=== PATIENT | female | born 1970 ===

== ENCOUNTER 2016-11-23 09:52 | Emergency (ER) | payer BC ==
[2016-11-23 10:00] VITALS: TEMP 98; BMI 22.4
[2016-11-23] MEDS ORDERED: Sodium Chloride 0.9% 1,000 ML IV STA (10:26)
[2016-11-23 11:05] LABS: BASO # 0.02 K/mm3 (0.0-2.0); BASO % 0.3 % (0.0-3.0); EOS % 0.1 % (1.5-5.0); GRAN # 5.45 (1.4-6.5); GRAN % 71.8 % (50.0-68.0); HEMOGLOBIN 13.9 gm/dL (12.0-16.0); LYMPH # 1.5 (1.2-3.4); LYMPH % 19.8 % (22.0-35.0); MEAN CELL VOLUME 111.8 fL (80.0-105.0); MEAN CORPUSCULAR HEMOGLOBIN 38.3 pg (25.0-35.0); MEAN CORPUSCULAR HGB CONC 34.2 g/dl (31.0-37.0); MEAN PLATELET VOLUME 10.7 fl (7.0-11.0); MONO # 0.6 (0.1-0.6); PLATELET COUNT 165 10^3/uL (120.0-450.0); RBC 3.63 10^6/uL (3.5-6.1); RED CELL DISTRIBUTION WIDTH 14.8 % (11.5-14.5); WHITE BLOOD COUNT 7.6 10^3/ul (4.5-11.0)
[2016-11-23 11:16] LABS: INR 1.15 (0.93-1.08); PARTIAL THROMBOPLASTIN TIME 27.3 Seconds (23.7-30.8); PROTHROMBIN TIME 12.4 Seconds (9.9-11.8)
[2016-11-23 11:18] LABS: ALB/GLOB RATIO 0.9 (1.1-1.8); ALT/SGPT 97 U/L (7-56); AST/SGOT 203 U/L (15-39); BLOOD UREA NITROGEN 7 mg/dL (7-21); CALCIUM 9.3 mg/dL (8.4-10.5); GFR AFRICAN-AMERICAN > 60; GFR NON-AFRICAN AMERICAN > 60
[2016-11-23 11:30] LABS: TROPONIN I < 0.01 ng/mL
[2016-11-23 11:54] LABS: PH,URINE 5.5 (4.7-8.0); URINE BILIRUBIN MODERATE (NEGATIVE); URINE BLOOD NEGATIVE (NEGATIVE); URINE GLUCOSE (UA) NEGATIVE (NEGATIVE); URINE LEUKOCYTE ESTERASE NEGATIVE Leu/uL (NEGATIVE); URINE NITRATE NEGATIVE (NEGATIVE); URINE PROTEIN 30 mg/dL (<30 mg/dL)
[2016-11-23 11:55] VITALS: RESP 18; O2SAT 100
[2016-11-23 11:55] LABS: URINE APPEARANCE CLOUDY (CLEAR); URINE COLOR DARK YELLOW (YELLOW)
--- NOTE | 2016-11-23 12:10 | ED PDOC ---
Arrival/HPI - General Historian: Patient - General Chief Complaint: Dizziness/Lightheaded Time Seen by Provider: 11/23/16 10:13 - History of Present Illness Narrative History of Present Illness (Text): 11/23/16 12:56 46yo female present with complaint of positional dizziness x 2days. She describes dizziness as a spinning sensation. States is worse when laying down. Denies tinnitus, recent URI, focal weakness, aphasia, headache, nausea, abdominal pain, fever, chills, any other complaint. (Louisa Dorman) Past Medical History - Provider Review Nursing Documentation Reviewed: Yes - Psychiatric Hx Substance Use: No - Surgical History Hx Orthopedic Surgery: Yes Family/Social History - Physician Review Nursing Documentation Reviewed: Yes Family/Social History: Unknown Family HX Smoking Status: Current Some Days Smoker Hx Alcohol Use: Yes Frequency of alcohol use: Socially Hx Substance Use: No Allergies/Home Meds Allergies/Adverse Reactions: Allergies No Known Allergies Allergy (Verified 11/23/16 10:00) Review of Systems - Physician Review All systems were reviewed & negative as marked: Yes - Review of Systems Constitutional: Normal Eyes: Normal ENT: Normal Respiratory: Normal Cardiovascular: Normal Gastrointestinal: Normal Genitourinary Female: Normal Musculoskeletal: Normal Skin: Normal Neurological: Dizziness. absent: Headache, Focal Weakness, Gait Changes, Speech Changes, Facial Droop Endocrine: Normal Hemo/Lymphatic: Normal Psychiatric: Normal Physical Exam Vital Signs Reviewed: Yes Temperature: Afebrile Blood Pressure: Normal Pulse: Regular Respiratory Rate: Normal Appearance: Positive for: Well-Appearing, Non-Toxic, Comfortable Pain Distress: None Mental Status: Positive for: Alert and Oriented X 3 Finger Stick Blood Glucose: 89 - Systems Exam Head: Present: Atraumatic, Normocephalic Pupils: Present: PERRL Extroacular Muscles: Present: EOMI Conjunctiva: Present: Normal Mouth: Present: Moist Mucous Membranes Neck: Present: Normal Range of Motion Respiratory/Chest: Present: Clear to Auscultation, Good Air Exchange. No: Respiratory Distress, Accessory Muscle Use Cardiovascular: Present: Regular Rate and Rhythm, Normal S1, S2. No: Murmurs Abdomen: Present: Normal Bowel Sounds. No: Tenderness, Distention, Peritoneal Signs Back: Present: Normal Inspection Upper Extremity: Present: Normal Inspection. No: Cyanosis, Edema Lower Extremity: Present: Normal Inspection. No: Edema Neurological: Present: GCS=15, CN II-XII Intact, Speech Normal, Motor Func Grossly Intact, Normal Sensory Function, Normal Cerebellar Funct, Norm Deep Tendon Reflexes, Gait Normal, Memory Normal, Normal 2Pt Descrimination, Other ( No focal neurological deficit) Skin: Present: Warm, Dry, Normal Color. No: Rashes Psychiatric: Present: Alert, Oriented x 3, Normal Insight, Normal Concentration Vital Signs Temp Pulse Resp BP Pulse Ox 11/23/16 12:39 79 18 132/79 100 11/23/16 11:54 85 18 134/82 100 11/23/16 11:30 98 H 18 135/89 99 11/23/16 09:58 98.0 F 107 H 16 137/98 H 99 Medical Decision Making ED Course and Treatment: I was available for consultation during PA evaluation. The chart was reviewed by me, and I agree with disposition. The documented history was done by the physician receiving manager. The documented physical exam was done by the physician receiving manager. The documented procedures were done by the physician receiving manager. (Derick Trujillo) 11/23/16 13:06 PT presented for stated history. On reevaluation she notes that her dizziness resolved. She have no focal neurological deficit and ambulatory with normal gait. Lab was unremarkable with the exception of the elevated LFT's. On further questioning pt admits to history of alcohol abuse. She was counselled on joining AA and stopping alcohol. Advised to f/u with her PMD for outp work up. Head CT was negative . Result was DW the pt. She was DC home with a rx of Meclizine 25mg. Referred to a Neurologist. Advised TRT ED for any new or worsening symptoms. She expressed understanding of all the given instructions. ( Louisa Dorman) - Lab Interpretations Lab Results: 11/23/16 10:58 11/23/16 10:58 Lab Results 11/23/16 11:40: Urine Opiates Screen Negative, Urine Methadone Screen Negative, Ur Barbiturates Screen Negative, Ur Phencyclidine Scrn Negative, Ur Amphetamines Screen Negative, U Benzodiazepines Scrn Negative, U Oth Cocaine Metabols Negative, U Cannabinoids Screen Negative 11/23/16 11:40: Urine Color Dark yellow, Urine Appearance Cloudy, Urine pH 5.5, Ur Specific [place] >= 1.030, Urine Protein 30 H, Urine Glucose (UA) Negative, Urine Ketones 15 H, Urine Blood Negative, Urine Nitrate Negative, Urine Bilirubin Moderate H, Urine Urobilinogen 2.0 H, Ur Leukocyte Esterase Negative, Urine RBC 0 - 2, Urine WBC Negative, Ur Epithelial Cells Many, Amorphous Sediment Small, Urine Bacteria Mod 11/23/16 10:58: Alcohol, Quantitative 23 H 11/23/16 10:58: Sodium 141, Potassium 4.2, Chloride 104, Carbon Dioxide 23, Anion Gap 18, BUN 7, Creatinine 0.6, Est GFR ( Amer) > 60, Est GFR (Non- Af Amer) > 60, Random Glucose 90, Calcium 9.3, Total Bilirubin 1.8 H, AST 203 H , ALT 97 H, Alkaline Phosphatase 217 H, Lactate Dehydrogenase 621, Total Creatine Kinase 50, Troponin I < 0.01, Total Protein 8.6 H, Albumin 4.0, Globulin 4.6, Albumin/Globulin Ratio 0.9 L 11/23/16 10:58: PT 12.4 H, INR 1.15 H, APTT 27.3 11/23/16 10:58: WBC 7.6, RBC 3.63, Hgb 13.9, Hct 40.6, MCV 111.8 H, MCH 38.3 H, MCHC 34.2, RDW 14.8 H, Plt Count 165, MPV 10.7, Gran % 71.8 H, Lymph % (Auto) 19.8 L, [place] % (Auto) 8.0 H, Eos % (Auto) 0.1 L, Baso % (Auto) 0.3, Gran # 5.45 , Lymph # 1.5, [place] # 0.6, Eos # 0.0, Baso # 0.02 - RAD Interpretation Radiology Orders: 11/23/16 10:26 HEAD W/O CONTRAST [CT] Stat - Medication Orders Current Medication Orders: Discontinued Medications Sodium Chloride (Sodium Chloride 0.9%) 1,000 mls @ 999 mls/hr IV .Q1H1M STA Stop: 11/23/16 11:26 Last Admin: 11/23/16 10:46 Dose: 999 mls/hr Meclizine HCl (Antivert) 25 mg PO STAT STA Stop: 11/23/16 10:28 Last Admin: 11/23/16 10:44 Dose: 25 mg Disposition/Present on Arrival - Present on Arrival Any Indicators Present on Arrival: No History of DVT/PE: No History of Uncontrolled Diabetes: No Urinary Catheter: No History of Decub. Ulcer: No History Surgical Site Infection Following: None - Disposition Have Diagnosis and Disposition been Completed?: Yes Disposition Time: 12:45 Patient Plan: Discharge - Disposition Diagnosis: Dizziness, Elevated liver enzymes Disposition: HOME/ ROUTINE Condition: STABLE Discharge Instructions (ExitCare): Vertigo (ED) Additional Instructions: Follow up with your Doctor/Neurologist Return to ED for any new or worsening symptoms Prescriptions: Meclizine [Meclizine*] 25 mg PO Q6 #15 tab Referrals: PCP,NO [Primary Care Provider] - Follow up with primary Scott Pink MD [Staff Provider] - Follow up with primary
[2016-11-23 12:13] LABS: BARBITURATES, UR NEGATIVE (NEGATIVE); BENZODIAZEPINES, UR NEGATIVE (NEGATIVE); OPIATES, UR NEGATIVE (NEGATIVE); PHENCYCLIDINE, UR NEGATIVE (NEGATIVE)
[2016-11-23 12:17] LABS: URINE EPITHELIAL CELLS MANY /hpf (0-5); URINE RBC 0 - 2 /hpf (0-2); URINE WBC NEGATIVE /hpf (0-6)
[2016-11-23 12:18] LABS: URINE AMORPHOUS SEDIMENT SMALL; URINE BACTERIA MOD (NEG)
--- NOTE | 2016-11-23 12:28 | CT ---
PROCEDURE: CT HEAD WITHOUT CONTRAST. HISTORY: dizziness COMPARISON: None available. TECHNIQUE: Axial computed tomography images were obtained through the head/brain without intravenous contrast. Radiation dose: Total exam DLP = 774 mGy-cm. This CT exam was performed using one or more of the following dose reduction techniques: Automated exposure control, adjustment of the mA and/or kV according to patient size, and/or use of iterative reconstruction technique. FINDINGS: HEMORRHAGE: No intracranial hemorrhage. BRAIN: No mass effect or edema. No atrophy or chronic microvascular ischemic changes. VENTRICLES: Unremarkable. No hydrocephalus. CALVARIUM: Unremarkable. PARANASAL SINUSES: Unremarkable as visualized. No significant inflammatory changes. MASTOID AIR CELLS: Unremarkable as visualized. No inflammatory changes. OTHER FINDINGS: None. IMPRESSION: Normal CT of the Head.
[2016-11-23 12:39] VITALS: BP 132/79; PULSE 79
== END 2016-11-23 13:00 | disposition home or self-care (01) ==
LOC: ED 09:52
DX: R74.8 Abnormal levels of other serum enzymes (principal); R42 Dizziness and giddiness
CPT/HCPCS: 70450; 80053; 81001; 82550; 83615; 84484; 85025; 85610; 85730; 96360; 99285; G0480; J7040

== ENCOUNTER 2017-02-05 08:57 | Inpatient (IN) | payer BC ==
[2017-02-05 08:57] VITALS: BMI 22.4
[2017-02-05] MEDS ORDERED: Iohexol 350 MG/100 ML VIAL ONE (09:43)
[2017-02-05 09:46] LABS: BASO # 0.03 K/mm3 (0.0-2.0); BASO % 0.3 % (0.0-3.0); EOS # 0.2 (0.0-0.7); EOS % 1.5 % (1.5-5.0); GRAN # 5.16 (1.4-6.5); GRAN % 52.7 % (50.0-68.0); HEMATOCRIT 38.3 % (36.0-48.0); LYMPH # 3.9 (1.2-3.4); LYMPH % 39.8 % (22.0-35.0); MEAN CORPUSCULAR HEMOGLOBIN 40.2 pg (25.0-35.0); MEAN CORPUSCULAR HGB CONC 35.2 g/dl (31.0-37.0); MEAN PLATELET VOLUME 10.4 fl (7.0-11.0); MONO # 0.6 (0.1-0.6); MONO % 5.7 % (1.0-6.0); RED CELL DISTRIBUTION WIDTH 15.5 % (11.5-14.5); WHITE BLOOD COUNT 9.8 10^3/ul (4.5-11.0)
--- NOTE | 2017-02-05 09:54 | RAD ---
HISTORY: and pain COMPARISON: No prior. FINDINGS: LUNGS: No active pulmonary disease. PLEURA: No significant pleural effusion identified, no pneumothorax apparent. CARDIOVASCULAR: Normal. OSSEOUS STRUCTURES: No significant abnormalities. VISUALIZED UPPER ABDOMEN: Normal. OTHER FINDINGS: None. IMPRESSION: No active disease.
[2017-02-05 09:55] LABS: ALB/GLOB RATIO 0.7 (1.1-1.8); ALKALINE PHOSPHATASE 259 U/L (38-126); ALT/SGPT 96 U/L (7-56); AST/SGOT 264 U/L (14-36); BLOOD UREA NITROGEN 4 mg/dL (7-21); CALCIUM 8.6 mg/dL (8.4-10.5); CARBON DIOXIDE 23 mmol/L (21-33); CHLORIDE 107 mmol/L (95-110); GFR AFRICAN-AMERICAN > 60; GLUCOSE,RANDOM 105 mg/dL (70-110); LIPASE 231 U/L (23-300); POTASSIUM 3.3 mmol/L (3.6-5.0); SODIUM 144 mmol/L (132-148); TOTAL PROTEIN 8.1 g/dL (5.8-8.3)
[2017-02-05 09:56] LABS: INR 1.14 (0.93-1.08)
--- NOTE | 2017-02-05 10:10 | ED PDOC ---
Arrival/HPI - General Chief Complaint: Abnormal Labs Time Seen by Provider: 02/05/17 09:35 Historian: Patient - History of Present Illness Narrative History of Present Illness (Text): 02/05/17 10:10 A 46 year old female presents to the emergency department for abnormal labs. Patient says PMD advised patient to come to the emergency department because liver enzymes were elevated. Patient is complaining of right upper quadrant and epigastric discomfort for the past 4-5 months, which is usually worse after she eats. Patient was told to get her gallbladder taken out. Patient denies any other complaints at this time. PMD: Dr. Patel Symptom Onset: Sudden Symptom Course: Unchanged Activities at Onset: Rest Context: Home Past Medical History - Provider Review Nursing Documentation Reviewed: Yes - Cardiac Hx Cardiac Disorders: No - Pulmonary Hx Respiratory Disorders: No - Neurological Hx Neurological Disorder: No - HEENT Hx HEENT Disorder: No - Renal Hx Renal Disorder: No - Endocrine/Metabolic Hx Endocrine Disorders: No - Hematological/Oncological Hx Blood Disorders: No - Integumentary Hx Dermatological Disorder: No - Musculoskeletal/Rheumatological Hx Musculoskeletal Disorders: No - Gastrointestinal Hx Gastrointestinal Disorders: No - Genitourinary/Gynecological Hx Genitourinary Disorders: No - Psychiatric Hx Psychophysiologic Disorder: No Hx Substance Use: No - Surgical History Hx Orthopedic Surgery: Yes Family/Social History - Physician Review Nursing Documentation Reviewed: Yes Family/Social History: No Known Family HX Smoking Status: Light Smoker < 10 Cigarettes Daily Hx Alcohol Use: Yes Frequency of alcohol use: Few days per week Hx Substance Use: No Allergies/Home Meds Allergies/Adverse Reactions: Allergies No Known Allergies Allergy (Verified 02/05/17 09:07) Home Medications: Home Meds Medication Instructions Recorded Confirmed No Known Home Med 02/05/17 02/05/17 Review of Systems - Physician Review All systems were reviewed & negative as marked: Yes Physical Exam - Physical Exam Narrative Physical Exam (Text): 02/05/17 10:07 - Review of Systems Constitutional: Normal. absent: Fatigue, Weight Change, Fevers Eyes: Normal ENT: denies sore throat, denies tristhmus Respiratory: Normal. absent: SOB, Cough, Sputum Cardiovascular: absent: Chest Pain, Palpitations, Syncope Gastrointestinal: right upper quadrant and epigastric discomfort absent: Diarrhea, Nausea, Vomiting Genitourinary: Normal. absent: Dysuria, Frequency, Hematuria, vaginal bleeding Musculoskeletal: Normal. absent: Arthralgias, Back Pain, Neck Pain Skin: no rashes, no erythema Neurological: absent: Focal Weakness Endocrine: Normal Hemo/Lymphatic: Normal Psychiatric: No suicidal or homicidal ideations Physical exam Patient appears age appropriate in no distress, speaking full sentences without difficulty - Systems Exam Head: Present: Atraumatic, Normocephalic Pupils: Present: PERRL Extroacular Muscles: Present: EOMI Conjunctiva: Present: Normal Mouth: Present: Moist Mucous Membranes Neck: Present: Normal Range of Motion. No: MIDLINE TENDERNESS, Paraspinal Tenderness Respiratory/Chest: Present: Clear to Auscultation, Good Air Exchange. No: Respiratory Distress, Accessory Muscle Use, Tachypneic Cardiovascular: Present: Regular Rate and Rhythm, Normal S1, S2, Peripheal Pulses Present. No: Murmurs Abdomen: Present: RUQ ttp, Normal Bowel Sounds. No: Distention, Peritoneal Signs, Rebound, Guarding Back: Present: Normal Inspection. No: Midline Tenderness, Paraspinal Tenderness Upper Extremity: Present: Normal Inspection. No: Cyanosis, Edema Lower Extremity: Present: Normal Inspection. No: Edema Neurological: Present: GCS=15, Speech Normal, cranial nerves II through XII fully intact with no cerebellar abnormality, neurosensory fully intact. No focal neurological deficits. Skin: Present: Warm, Dry, Normal Color. No: Rashes Lymphatic: Present: OX3, NI, NC Psychiatric: Present: Alert, Oriented x 3, Normal Insight, Normal Concentration Vital Signs Reviewed: Yes Vital Signs Temp Pulse Resp BP Pulse Ox 02/05/17 12:58 71 18 104/78 99 02/05/17 11:15 74 18 102/75 99 02/05/17 09:04 98.1 F 100 H 16 116/86 100 Temperature: Afebrile Blood Pressure: Normal Pulse: Regular Respiratory Rate: Normal Appearance: Positive for: Well-Appearing, Non-Toxic, Comfortable Pain Distress: None Mental Status: Positive for: Alert and Oriented X 3 Medical Decision Making ED Course and Treatment: 02/05/17 10:05 Impression: A 46 year old female with right upper quadrant and epigastric discomfort. On physical exam, patient had right upper quadrant tenderness to palpation. Differential Diagnosis included but are not limited to: cholelithiasis vs. cholecystitis vs. nonspecific abdominal pain Plan: -- EKG -- chest xray -- CT abd/pelvis -- labs -- Reassess and disposition Prior Visits: Notes and results from previous visits were reviewed. Patient was last seen in the emergency department on 11/23/16 for evaluation of dizziness. Progress Notes: Patient was scheduled for CAT scan today with PO contrast, which she already drank prior to arrival. EKG: EKG shows NSR at [address]-segment elevations, normal intervals. Interpreted by me. 02/05/17 09:56 chest xray: Creator : Valeri Garcia V. FINDINGS: LUNGS: No active pulmonary disease. PLEURA: No significant pleural effusion identified, no pneumothorax apparent. CARDIOVASCULAR: Normal. OSSEOUS STRUCTURES: No significant abnormalities. VISUALIZED UPPER ABDOMEN: Normal. IMPRESSION: No active disease. 02/05/17 11:37 CT IMPRESSION: 1. The gallbladder is prominently distended without mural thickening, pericholecystic fluid or radiodense cholelithiasis. Clinically correlate for potential cholecystitis nevertheless. 2. Marked diffuse fatty infiltration of the liver is identified with probable focal fatty sparing at a segment of the medial left lobe approaching the watershed zone near the medial right lobe as well. Follow-up MRI with and without contrast can confirm this finding and exclude underlying lesions here. 3. 1 cm right adnexal cyst and probable small fibroid at the lower uterine segment uterus towards left. BCx and abx ordered vice president integrated paged 02/05/17 13:10 seen by vice president integrated US result pending 02/05/17 13:16 Abdomen US Creator : Valeri Garcia V. LIVER: Measures 17.3 x 17.2 cm. -. Minimal hepatomegaly. Diffuse increased echogenicity of the liver parenchyma. No mass. No intrahepatic bile duct dilatation. GALLBLADDER: Multiple gallstones. No gallbladder wall thickening or pericholecystic fluid. No positive sonographic Smith sign elicited. COMMON BILE DUCT: Measures 4 mm. No stones. No dilatation. PANCREAS: Limited evaluation-obscured by bowel gas RIGHT KIDNEY: Measures 9.9 x 4.7 x 5.7cm. Normal echogenicity. No calculus, mass , or hydronephrosis. LEFT KIDNEY: Measures 11.0 x 6.5 x 5.9cm. Normal echogenicity. No calculus, mass , or hydronephrosis. SPLEEN: Normal in size and contour. No mass. AORTA: No aneurysmal dilatation. IVC: Unremarkable. OTHER FINDINGS: Prominent bowel gas IMPRESSION: Multiple gallstones without gallbladder wall thickening or pericholecystic fluid. No positive ultrasound Smith sign. No imaging ancillary signs to suggest acute cholecystitis. No dilated ducts Minimal hepatomegaly. Hepatic steatosis 02/05/17 13:[address] Chi in detail, who agrees and accepts patient to her service with Dr. Arora and Dr. Solis on consult. pt aware of and agrees with plan - Lab Interpretations Lab Results: 02/05/17 09:28 02/05/17 09:28 Lab Results 02/05/17 12:02: Blood Type Confirm B POSITIVE 02/05/17 09:28: Sodium 144, Potassium 3.3 L, Chloride 107, Carbon Dioxide 23, Anion Gap 17, BUN 4 L, Creatinine 0.5, Est GFR ( Amer) > 60, Est GFR (Non -Af Amer) > 60, Random Glucose 105, Calcium 8.6, Total Bilirubin 1.0, AST 264 H , ALT 96 H, Alkaline Phosphatase 259 H, Total Protein 8.1, Albumin 3.4, Globulin 4.7, Albumin/Globulin Ratio 0.7 L, Lipase 231 02/05/17 09:28: PT 12.3 H, INR 1.14 H, APTT 28.0 02/05/17 09:28: WBC 9.8 D, RBC 3.36 L, Hgb 13.5, Hct 38.3, MCV 114.0 H, MCH 40.2 H, MCHC 35.2, RDW 15.5 H, Plt Count 225, MPV 10.4, Gran % 52.7, Lymph % ( Auto) 39.8 H, [place] % (Auto) 5.7, Eos % (Auto) 1.5, Baso % (Auto) 0.3, Gran # 5.16, Lymph # 3.9 H, [place] # 0.6, Eos # 0.2, Baso # 0.03 02/05/17 09:20: Blood Type B POSITIVE, Antibody Screen Negative, BBK History Checked No verified bt I have reviewed the lab results: Yes - RAD Interpretation Radiology Orders: 02/05/17 09:36 ABD & PELVIS IV CONTRAST ONLY [CT] Stat 02/05/17 09:37 CHEST PORTABLE [RAD] Stat 02/05/17 11:49 ABDOMEN COMPLETE [US] Stat - EKG Interpretation Interpreted by ED Physician: Yes Type: 12 lead EKG - Medication Orders Current Medication Orders: Potassium Chloride 40 meq/ (Sodium Chloride) 1,020 mls @ 100 mls/hr IV .[id number] SASHA Piperacillin Sod/Tazobactam Sod (Zosyn 3.375 In Ns 100ml) 100 mls @ 200 mls/hr IVPB Q6 SASHA PRN Reason: Protocol Stop: 02/06/17 00:29 Sodium Chloride (Sodium Chloride 0.9%) 1,000 mls @ 100 mls/hr IV .Q10H SASHA Last Admin: 02/05/17 13:53 Dose: 100 mls/hr eMAR Start Stop Document 02/05/17 13:53 SE (Rec: 02/05/17 13:53 SE [id number]) Intravenous Solution Start Date 02/05/17 Start Time 13:53 Morphine Sulfate (Morphine) 4 mg IVP Q4 PRN PRN Reason: Pain, moderate (4-7) Ondansetron HCl (Zofran Inj) 4 mg IVP Q4 PRN PRN Reason: Nausea/Vomiting Discontinued Medications Magnesium Sulfate/Dextrose (Magnesium Sulfate 1 Gm/100 Ml D5w) 1 gm in 100 mls @ 100 mls/hr IVPB ONCE ONE Stop: 02/05/17 11:37 Last Admin: 02/05/17 11:15 Dose: 100 mls/hr eMAR Start Stop Document 02/05/17 11:15 SE (Rec: 02/05/17 11:15 SE [id number]) Intravenous Solution Start Date 02/05/17 Start Time 11:15 Metronidazole (Flagyl) 500 mg in 100 mls @ 100 mls/hr IVPB STAT STA PRN Reason: Protocol Stop: 02/05/17 12:37 Last Admin: 02/05/17 13:15 Dose: 100 mls/hr Comments: SCANNER NOT WORKING. VERIFIED WITH VITOR< PATIENT REPRESENTATIVE eMAR Start Stop Document 02/05/17 13:15 SE (Rec: 02/05/17 13:16 SE [id number]) Intravenous Solution Start Date 02/05/17 Start Time 13:16 Ceftriaxone Sodium (Rocephin 1 Gram Ivpb) 1 gm in 100 mls @ 200 mls/hr IV STAT STA PRN Reason: Protocol Stop: 02/05/17 12:07 Last Admin: 02/05/17 12:17 Dose: 200 mls/hr Comments: waited on mag to finish to hang eMAR Start Stop Document 02/05/17 12:17 SE (Rec: 02/05/17 12:17 SE [id number]) Intravenous Solution Start Date 02/05/17 Start Time 12:17 Iohexol (Omnipaque 350 100 Ml) Confirm Administered Dose 350 mg .ROUTE .STK-MED ONE Stop: 02/05/17 09:44 Ketorolac Tromethamine (Toradol) 30 mg IVP STAT STA Stop: 02/05/17 11:44 Last Admin: 02/05/17 11:53 Dose: 30 mg MAR Pain Assessment Document 02/05/17 11:53 SE (Rec: 02/05/17 11:54 SE [id number]) Pain Reassessment Is this a pain reassessment? No Sleep Is patient sleeping during reassessment? No Presence of Pain Presence of Pain Yes Pain Scale Used Pain Scale Used Numeric IVP Administration Document 02/05/17 11:53 SE (Rec: 02/05/17 11:54 SE [id number]) Charges for Administration # of IVP Administrations 1 Ondansetron HCl (Zofran Inj) 4 mg IVP STAT STA Stop: 02/05/17 11:44 Last Admin: 02/05/17 11:54 Dose: 4 mg IVP Administration Document 02/05/17 11:54 SE (Rec: 02/05/17 11:54 SE [id number]) Charges for Administration # of IVP Administrations 1 Potassium Chloride (K-Dur 20 Meq Er Tab) 40 meq PO STAT STA Stop: 02/05/17 10:39 Last Admin: 02/05/17 10:43 Dose: 40 meq ED OBSERVATION Date of observation admission: 02/05/17 Time of observation admission: 09:00 - Scribe Statement The provider has reviewed the documentation as recorded by the Jayy Fam Provider Scribe Attestation: All medical record entries made by the Scribe were at my direction and personally dictated by me. I have reviewed the chart and agree that the record accurately reflects my personal performance of the history, physical exam, medical decision making, and the department course for this patient. I have also personally directed, reviewed, and agree with the discharge instructions and disposition. Disposition/Present on Arrival - Present on Arrival Any Indicators Present on Arrival: No History of DVT/PE: No History of Uncontrolled Diabetes: No Urinary Catheter: No History of Decub. Ulcer: No History Surgical Site Infection Following: None - Disposition Have Diagnosis and Disposition been Completed?: Yes Diagnosis: Abdominal pain Disposition: HOSPITALIZED Disposition Time: 09:00 Patient Plan: Admission Patient Problems: Current Active Problems Problem Status Onset Abdominal pain Acute Condition: STABLE
[2017-02-05] MEDS ORDERED: Magnesium Sulfate 1 gm in D5W 1 GM/100 ML BAG IVPB ONE (10:38)
[2017-02-05] MEDS ORDERED: Potassium Chloride 20 mEq ER Tab PO STA (10:38)
--- NOTE | 2017-02-05 11:26 | CT ---
PROCEDURE: CT Abdomen and Pelvis with contrast HISTORY: abd pain COMPARISON: None. TECHNIQUE: Contrast dose: Omnipaque 350, 100 cc. Radiation dose: Total exam DLP = 334.64 mGy-cm. This CT exam was performed using one or more of the following dose reduction techniques: Automated exposure control, adjustment of the mA and/or kV according to patient size, and/or use of iterative reconstruction technique. FINDINGS: LOWER THORAX: Unremarkable. LIVER: There is prominent diffuse fatty infiltration identified throughout the liver with likely focal fatty sparing at the medial left lobe liver approaching the watershed region between the left and right lobes. This can be confirmed by MRI without contrast. GALLBLADDER AND BILE DUCTS: The gallbladder appears markedly distended but there is no mural thickening or pericholecystic fluid collection. No radiodense cholelithiasis. Clinically correlate for possible cholecystitis nevertheless. PANCREAS: Unremarkable. No gross lesion or ductal dilatation. SPLEEN: Unremarkable. ADRENALS: Unremarkable. No mass. KIDNEYS AND URETERS: Unremarkable. No hydronephrosis. No solid mass. VASCULATURE: Unremarkable. No aortic aneurysm. BOWEL: Unremarkable. No obstruction. No gross mural thickening. A small spur polyp is not excluded at the medial wall the cecum or adherent retained fecal material. Follow-up lower endoscopy is a recommended when feasible. APPENDIX: The appendix is not identified however there is no CT evidence to suggest appendicitis at this time. PERITONEUM: Unremarkable. No free fluid. No free air. LYMPH NODES: Unremarkable. No enlarged lymph nodes. BLADDER: Unremarkable. REPRODUCTIVE: 1 cm right adnexal cysts identified an inhomogeneous enhancement at the lower uterine segment of the uterus toward the left may reflect a small uterine fibroid. A tampon is also identified in the vaginal vault. BONES: No acute fracture. OTHER FINDINGS: None. IMPRESSION: 1. The gallbladder is prominently distended without mural thickening, pericholecystic fluid or radiodense cholelithiasis. Clinically correlate for potential cholecystitis nevertheless. 2. Marked diffuse fatty infiltration of the liver is identified with probable focal fatty sparing at a segment of the medial left lobe approaching the watershed zone near the medial right lobe as well. Follow-up MRI with and without contrast can confirm this finding and exclude underlying lesions here. 3. 1 cm right adnexal cyst and probable small fibroid at the lower uterine segment uterus towards left.
[2017-02-05] MEDS ORDERED: metroNIDAZOLE IV 500 mg/100 ml 500 MG/100 ML BAG IVPB STA (11:38)
[2017-02-05] MEDS ORDERED: cefTRIAXone 1 gm 1 GM/100 ML BAG IV STA (11:38)
--- NOTE | 2017-02-05 12:28 | CP.PCM.CON ---
History of Present Illness - History of Present Illness History of Present Illness: 46M RUQ 3-4 mo biliary colic. post-prandial pain. Patient is originally from [place] and moved to [place] recently, patient was supposed to get gallbladder removed by surgeon in [place], but was unable to. Patient was sent to ED by PCP for labwork results. PMH: PSH: Allergies: NKDA In ED: CT distended gallbladder wall. cholecystitis. WBC 9.8 AST/ALT 264/96 ALP 259 Past Patient History - Past Social History Smoking Status: Light Smoker < 10 Cigarettes Daily - CARDIAC Hx Cardiac Disorders: No - PULMONARY Hx Respiratory Disorders: No - NEUROLOGICAL Hx Neurological Disorder: No - HEENT Hx HEENT Problems: No - RENAL Hx Chronic Kidney Disease: No - ENDOCRINE/METABOLIC Hx Endocrine Disorders: No - HEMATOLOGICAL/ONCOLOGICAL Hx Blood Disorders: No - INTEGUMENTARY Hx Dermatological Problems: No - MUSCULOSKELETAL/RHEUMATOLOGICAL Hx Musculoskeletal Disorders: No - GASTROINTESTINAL Hx Gastrointestinal Disorders: No - GENITOURINARY/GYNECOLOGICAL Hx Genitourinary Disorders: No - PSYCHIATRIC Hx Psychophysiologic Disorder: No Hx Substance Use: No - SURGICAL HISTORY Hx Orthopedic Surgery: Yes Meds Allergies/Adverse Reactions: Allergies Allergy/AdvReac Type Severity Reaction Status Date / Time No Known Allergies Allergy Verified 02/05/17 09:07 - Medications Medications: Current Medications Metronidazole (Flagyl) 500 mg in 100 mls @ 100 mls/hr IVPB STAT STA PRN Reason: Protocol Stop: 02/05/17 12:37 Results - Vital Signs Recent Vital Signs: Last Vital Signs Temp 98.1 F 02/05/17 09:04 Pulse 74 02/05/17 11:15 Resp 18 02/05/17 11:15 BP 102/75 02/05/17 11:15 Pulse Ox 99 02/05/17 11:15 - Labs Result Diagrams: 02/05/17 09:28 02/05/17 09:28 Labs: Laboratory Results - last 24 hr 02/05/17 02/05/17 02/05/17 09:20 09:28 09:28 WBC 9.8 D RBC 3.36 L Hgb 13.5 Hct 38.3 MCV 114.0 H MCH 40.2 H MCHC 35.2 RDW 15.5 H Plt Count 225 MPV 10.4 Gran % 52.7 Lymph % (Auto) 39.8 H [place] % (Auto) 5.7 Eos % (Auto) 1.5 Baso % (Auto) 0.3 Gran # 5.16 Lymph # 3.9 H [place] # 0.6 Eos # 0.2 Baso # 0.03 PT 12.3 H INR 1.14 H APTT 28.0 Sodium Potassium Chloride Carbon Dioxide Anion Gap BUN Creatinine Est GFR ( Amer) Est GFR (Non-Af Amer) Random Glucose Calcium Total Bilirubin AST ALT Alkaline Phosphatase Total Protein Albumin Globulin Albumin/Globulin Ratio Lipase Blood Type B POSITIVE Antibody Screen Negative BBK History Checked No verified bt 02/05/17 09:28 WBC RBC Hgb Hct MCV MCH MCHC RDW Plt Count MPV Gran % Lymph % (Auto) [place] % (Auto) Eos % (Auto) Baso % (Auto) Gran # Lymph # [place] # Eos # Baso # PT INR APTT Sodium 144 Potassium 3.3 L Chloride 107 Carbon Dioxide 23 Anion Gap 17 BUN 4 L Creatinine 0.5 Est GFR ( Amer) > 60 Est GFR (Non-Af Amer) > 60 Random Glucose 105 Calcium 8.6 Total Bilirubin 1.0 AST 264 H ALT 96 H Alkaline Phosphatase 259 H Total Protein 8.1 Albumin 3.4 Globulin 4.7 Albumin/Globulin Ratio 0.7 L Lipase 231 Blood Type Antibody Screen BBK History Checked Assessment & Plan - Assessment and Plan (Free Text) Assessment: 46F biliary colic, distended gallbladder, thickened wall. Plan: f/u abdominal US f/u CBC monitor vitals Maria Fernanda Bearden DO PGY1 - Date & Time Date: 02/05/17 Time: 12:21
--- NOTE | 2017-02-05 13:11 | CP.PCM.CON ---
History of Present Illness - History of Present Illness History of Present Illness: SURGERY CONSULT FOR JOSHUA 46F presents with abdominal pain. PMD sent her to ED for elevated liver enzymes. Pt has been having abdominal pain for past 4 months and was scheduled to have cholecystectomy 4 months ago when she lived in [place]. Pt was unable to make it to scheduled appt due to personal issues and did not f/u thereafter. She describes the pain as constant and so decided to find new PMD in [place]. Pt saw Dr. Rocha on Friday where labwork was done and then was sent to ED because of results. Pt admits to loss of appetite and therefore 25lb weight loss in last 4 months. She admits to fever/chills, nausea/vomiting, RUQ and mid- epigastric pain. PMH: denies PSH: R ACL repair Social: Pt admits tobacco abuse, admits to moderate weekly drinking for years, denies illicit drug use Allergies: NKDA Past Patient History - Past Social History Smoking Status: Light Smoker < 10 Cigarettes Daily - CARDIAC Hx Cardiac Disorders: No - PULMONARY Hx Respiratory Disorders: No - NEUROLOGICAL Hx Neurological Disorder: No - HEENT Hx HEENT Problems: No - RENAL Hx Chronic Kidney Disease: No - ENDOCRINE/METABOLIC Hx Endocrine Disorders: No - HEMATOLOGICAL/ONCOLOGICAL Hx Blood Disorders: No - INTEGUMENTARY Hx Dermatological Problems: No - MUSCULOSKELETAL/RHEUMATOLOGICAL Hx Musculoskeletal Disorders: No - GASTROINTESTINAL Hx Gastrointestinal Disorders: No - GENITOURINARY/GYNECOLOGICAL Hx Genitourinary Disorders: No - PSYCHIATRIC Hx Psychophysiologic Disorder: No Hx Substance Use: No - SURGICAL HISTORY Hx Orthopedic Surgery: Yes Meds Allergies/Adverse Reactions: Allergies Allergy/AdvReac Type Severity Reaction Status Date / Time No Known Allergies Allergy Verified 02/05/17 09:07 Physical Exam - Constitutional Appears: Non-toxic, No Acute Distress - Head Exam Head Exam: ATRAUMATIC - Eye Exam Eye Exam: EOMI, PERRL - ENT Exam ENT Exam: Mucous Membranes Dry - Respiratory Exam Respiratory Exam: Clear to Auscultation Bilateral, NORMAL BREATHING PATTERN - Cardiovascular Exam Cardiovascular Exam: REGULAR RHYTHM, +S1, +S2 - GI/Abdominal Exam GI & Abdominal Exam: Soft, Tenderness. absent: Distended, Firm, Guarding, Rebound, Rigid Additional comments: palpable gallbladder up to supraumbilical region - Extremities Exam Extremities exam: Negative for: pedal edema, tenderness - Neurological Exam Neurological exam: Normal Gait, Oriented x3 - Psychiatric Exam Psychiatric exam: Anxious, Normal Affect - Skin Skin Exam: Dry, Intact, Normal Color, Warm Results - Vital Signs Recent Vital Signs: Last Vital Signs Temp 98.1 F 02/05/17 09:04 Pulse 71 02/05/17 12:58 Resp 18 02/05/17 12:58 BP 104/78 02/05/17 12:58 Pulse Ox 99 02/05/17 12:58 - Labs Result Diagrams: 02/05/17 09:28 02/05/17 09:28 Labs: Laboratory Results - last 24 hr 02/05/17 02/05/17 02/05/17 09:20 09:28 09:28 WBC 9.8 D RBC 3.36 L Hgb 13.5 Hct 38.3 MCV 114.0 H MCH 40.2 H MCHC 35.2 RDW 15.5 H Plt Count 225 MPV 10.4 Gran % 52.7 Lymph % (Auto) 39.8 H [place] % (Auto) 5.7 Eos % (Auto) 1.5 Baso % (Auto) 0.3 Gran # 5.16 Lymph # 3.9 H [place] # 0.6 Eos # 0.2 Baso # 0.03 PT 12.3 H INR 1.14 H APTT 28.0 Sodium Potassium Chloride Carbon Dioxide Anion Gap BUN Creatinine Est GFR ( Amer) Est GFR (Non-Af Amer) Random Glucose Calcium Total Bilirubin AST ALT Alkaline Phosphatase Total Protein Albumin Globulin Albumin/Globulin Ratio Lipase Blood Type B POSITIVE Blood Type Confirm Antibody Screen Negative BBK History Checked No verified bt 02/05/17 02/05/17 09:28 12:02 WBC RBC Hgb Hct MCV MCH MCHC RDW Plt Count MPV Gran % Lymph % (Auto) [place] % (Auto) Eos % (Auto) Baso % (Auto) Gran # Lymph # [place] # Eos # Baso # PT INR APTT Sodium 144 Potassium 3.3 L Chloride 107 Carbon Dioxide 23 Anion Gap 17 BUN 4 L Creatinine 0.5 Est GFR ( Amer) > 60 Est GFR (Non-Af Amer) > 60 Random Glucose 105 Calcium 8.6 Total Bilirubin 1.0 AST 264 H ALT 96 H Alkaline Phosphatase 259 H Total Protein 8.1 Albumin 3.4 Globulin 4.7 Albumin/Globulin Ratio 0.7 L Lipase 231 Blood Type Blood Type Confirm B POSITIVE Antibody Screen BBK History Checked Assessment & Plan - Assessment and Plan (Free Text) Assessment: 46F presents with abdominal pain likely 2/2 cholelithiasis and distended gallbladder. CT shows distended gallbladder up to the level of supraumbilical region and fatty liver disease. Ultrasound shows distended gallbladder, cholelithiasis, normal CBD Plan: NPO, IVF Pain control, Antibiotics Anti-emetics f/u official ultrasound read Pt will need operation Further recs discuss w/ Dr. Joshua Elkins, PGY2
--- NOTE | 2017-02-05 13:14 | US ---
HISTORY: gallbladder disease COMPARISON: CT abdomen and pelvis 02/05/2017 TECHNIQUE: Sonographic evaluation of the abdomen. FINDINGS: LIVER: Measures 17.3 x 17.2 cm. -. Minimal hepatomegaly. Diffuse increased echogenicity of the liver parenchyma. No mass. No intrahepatic bile duct dilatation. GALLBLADDER: Multiple gallstones. No gallbladder wall thickening or pericholecystic fluid. No positive sonographic Smith sign elicited. COMMON BILE DUCT: Measures 4 mm. No stones. No dilatation. PANCREAS: Limited evaluation-obscured by bowel gas RIGHT KIDNEY: Measures 9.9 x 4.7 x 5.7cm. Normal echogenicity. No calculus, mass, or hydronephrosis. LEFT KIDNEY: Measures 11.0 x 6.5 x 5.9cm. Normal echogenicity. No calculus, mass, or hydronephrosis. SPLEEN: Normal in size and contour. No mass. AORTA: No aneurysmal dilatation. IVC: Unremarkable. OTHER FINDINGS: Prominent bowel gas IMPRESSION: Multiple gallstones without gallbladder wall thickening or pericholecystic fluid. No positive ultrasound Smith sign. No imaging ancillary signs to suggest acute cholecystitis. No dilated ducts Minimal hepatomegaly. Hepatic steatosis
[2017-02-05] MEDS ORDERED: Sodium Chloride 0.9% 1,000 ML IV SCH (13:45)
[2017-02-05] MEDS: Piperacillin/Tazobact 3.375 gm 100 ML IVPB SCH ×2 (17:42→23:42)
--- NOTE | 2017-02-05 23:06 | CARD ---
APPROVED REPORT EKG Measurement Heart [id number] <Conclusion> Normal sinus rhythm Prolonged QT Abnormal ECG
[2017-02-05 23:08] LABS: URINE BILIRUBIN NEGATIVE (NEGATIVE); URINE BLOOD NEGATIVE (NEGATIVE); URINE GLUCOSE (UA) NEGATIVE (NEGATIVE); URINE KETONE NEGATIVE (NEGATIVE); URINE LEUKOCYTE ESTERASE NEGATIVE Leu/uL (NEGATIVE); URINE PROTEIN TRACE mg/dL (<30 mg/dL)
[2017-02-05 23:15] LABS: URINE APPEARANCE CLEAR (CLEAR); URINE COLOR DARK YELLOW (YELLOW)
[2017-02-05 23:22] LABS: URINE BACTERIA MOD (NEG); URINE RBC NEGATIVE /hpf (0-2)
--- NOTE | 2017-02-06 04:25 | HP ---
CHIEF COMPLAINT: Abdominal pain. HISTORY OF PRESENT ILLNESS: Ms. Leyda Rosas is 46 years old female came to emergency room with abdominal pain. The patient seen PMD otherwise the patient go to the emergency department because of liver enzymes were elevated. The patient complaining of right upper quadrant and epigastric discomfort for past 4-5 months, which is usually worse after she eats. The patient was told to get her gallbladder taken out in [place], but she denies that at times. Now, the patient was seen by me on the floor. Her boyfriend was present also and I talk to her in the presence of her nurse and explained her all her sickness. PAST MEDICAL HISTORY: Orthopedic surgery. FAMILY HISTORY: Father and mother noncontributory. HABITS: Light smoker. Alcohol, yes. Drinking few days per week. Substance abuse, not. ALLERGIES: THE PATIENT IS NOT ALLERGIC WITH ANY MEDICATION. HOME MEDICATIONS: Refused. Denied. REVIEW OF SYSTEMS: The patient seen and examined on the bedside, looks anxious, want to signed against medical advice. Had no nausea or vomiting. Having abdominal pain on the right upper quadrant in the form of band. No headache. No dizziness. PHYSICAL EXAMINATION: VITAL SIGNS: Temperature 98.1, pulse is 100, respiratory rate 16, blood pressure 116/86 and pulse oximetry 100. HEENT: Head normocephalic and atraumatic. Eyes; PERRLA. Extraocular movements intact. Conjunctivae clear. Nose is patent. Mucous membranes moist. NECK: Supple. No carotid bruit, JVD, or thyromegaly. CHEST: Bilaterally symmetrical. HEART: S1 and S2 positive. LUNGS: Clear to auscultation. ABDOMEN: Soft and tender in the right, upper quadrant tenderness in the form of band going in the backward. EXTREMITIES: No edema. No cyanosis. NEUROLOGIC: The patient is awake and alert. Moving all 4 extremities. No focal deficits. LABORATORY DATA: White blood cell 9.8, hemoglobin 13.5, hematocrit 38.3 and platelets 225. Sodium 144, potassium 3.3, BUN 4, creatinine 0.5 and glucose 105. ASSESSMENT AND PLAN: Ms. Leyda Rosas is 46 years old female with hypokalemia, replaced came with abdominal pain, abnormal liver function test, went for CAT scan of the abdomen showed cholelithiasis, cholecystitis, homogeneous enhancement at the lower uterine segment of the uterus , may represent small uterine fibroid, fatty liver, 1 cm right adnexal cyst. Ultrasound of the abdomen is done also, seen by Dr. Thaddeus Arora, surgeon. Ultrasound; distended gallbladder, cholelithiasis, normal common bile duct. Plan is keeping the patient n.p.o., pain control, antiemetic. The patient will need operation, waiting for Dr. Arora's input and gastrointestinal input. The patient was given dose of metronidazole, morphine, NS, and Zofran. Gastrointestinal and deep venous thrombosis prophylaxis. Repeat labs. We will follow. Phuong Chi MD MTDD
[2017-02-06] MEDS: metroNIDAZOLE IV 500 mg/100 ml 500 MG/100 ML BAG IVPB SCH ×3 (06:04→22:10)
[2017-02-06 07:24] LABS: BASO # 0.02 K/mm3 (0.0-2.0); BASO % 0.2 % (0.0-3.0); EOS # 0.1 (0.0-0.7); EOS % 0.6 % (1.5-5.0); GRAN # 5.59 (1.4-6.5); GRAN % 68.9 % (50.0-68.0); HEMATOCRIT 33.1 % (36.0-48.0); LYMPH % 24.1 % (22.0-35.0); MEAN CELL VOLUME 114.9 fl (80.0-105.0); MEAN CORPUSCULAR HEMOGLOBIN 39.2 pg (25.0-35.0); MEAN CORPUSCULAR HGB CONC 34.1 g/dl (31.0-37.0); MEAN PLATELET VOLUME 10.6 fl (7.0-11.0); MONO # 0.5 (0.1-0.6); MONO % 6.2 % (1.0-6.0); RED CELL DISTRIBUTION WIDTH 15.4 % (11.5-14.5); WHITE BLOOD COUNT 8.1 10^3/ul (4.5-11.0)
[2017-02-06 07:34] LABS: BLOOD UREA NITROGEN 5 mg/dL (7-21); GLUCOSE,RANDOM 78 mg/dL (70-110)
[2017-02-06 07:35] LABS: ALB/GLOB RATIO 0.7 (1.1-1.8); ALKALINE PHOSPHATASE 201 U/L (38-126); ALT/SGPT 71 U/L (7-56); AST/SGOT 173 U/L (14-36); BILIRUBIN,TOTAL 1.7 mg/dL (0.2-1.3); CALCIUM 7.6 mg/dL (8.4-10.5); CARBON DIOXIDE 20 mmol/L (21-33); CHLORIDE 111 mmol/L (98-107); GFR AFRICAN-AMERICAN > 60; POTASSIUM 4.4 mmol/L (3.6-5.0); SODIUM 138 mmol/L (132-148); TOTAL PROTEIN 6.3 g/dL (5.8-8.3)
[2017-02-06] MEDS ORDERED: Bupivacaine 0.5% Inj(30mL) ONE (08:41)
[2017-02-06] MEDS ORDERED: Iohexol 240 (50 ml) ONE (08:41)
[2017-02-06] MEDS ORDERED: cefTRIAXone 1 gm 1 GM/100 ML BAG IVPB SCH (10:00)
--- NOTE | 2017-02-06 13:33 | CP.PCM.CON ---
<Marely Saucedo - Last Filed: 02/06/17 13:30> History of Present Illness - History of Present Illness History of Present Illness: Seen and examined at the bedside earlier this morning, the chart was reviewed. Request for GI consult is for gallbladder pain. HPI:This is a 46-year-old female who admits to history of EtOH, currently trying to cut down. She was sent by her PCP for further evaluation of elevated liver enzymes, the patient on admission admitted to having abdominal pain for past 4 months, she was scheduled for a cholecystectomy 4 months ago. At that time she lived in [place] and due to personal issues was unable to go for her scheduled surgery. She reports that she was had workup in [place] for elevated liver enzymes. Currently she complains of right upper quadrant and mid epigastric pain with fever, chills nausea and vomiting. She denies any hematemesis. She does report loss of appetite and a 25 pound weight loss for the past 4 months. On admission she had a CT scan of abdomen and pelvis with IV contrast this showed a distended gallbladder, fatty infiltrates in the liver and sparring in the left medial lobe of the liver suggesting further follow-up with MRI. Also found to have a 1 cm adnexal cyst and ultrasound of abdomen was also done which showed multiple stones in the gallbladder with no gallbladder thickening or pericholecystic fluid, the common bile duct measured 4 mm. Past medical history: EtOH, elevated liver enzymes, patient denies cardiac pulmonary or infectious hepatitis history. Surgical history: Right ACL repair Social history: Positive for tobacco, EtOH, patient states she's cut down, she drinks at least 3 days a week, for example she could she would drink of beer wine or hard liquor, at least 5-6 cups. Denies illicit drugs. Family history: Her mother and father were alcoholics Allergies: No known drug allergies Medications: Reviewed as per MAR ROS: Systems reviewed with positive findings see HPI Past Patient History - Past Social History Smoking Status: Light Smoker < 10 Cigarettes Daily - CARDIAC Hx Cardiac Disorders: No Other/Comment: smoking, drinking(drink few days per week) - PULMONARY Hx Respiratory Disorders: No - NEUROLOGICAL Hx Neurological Disorder: No - HEENT Hx HEENT Problems: No - RENAL Hx Chronic Kidney Disease: No - ENDOCRINE/METABOLIC Hx Endocrine Disorders: No - HEMATOLOGICAL/ONCOLOGICAL Hx Blood Disorders: No - INTEGUMENTARY Hx Dermatological Problems: No - MUSCULOSKELETAL/RHEUMATOLOGICAL Hx Musculoskeletal Disorders: Yes - GASTROINTESTINAL Hx Gastrointestinal Disorders: No - GENITOURINARY/GYNECOLOGICAL Hx Genitourinary Disorders: No - PSYCHIATRIC Hx Psychophysiologic Disorder: No - SURGICAL HISTORY Hx Surgeries: Yes (right knee Sx) Meds Allergies/Adverse Reactions: Allergies Allergy/AdvReac Type Severity Reaction Status Date / Time No Known Allergies Allergy Verified 02/05/17 09:07 - Medications Medications: Current Medications Potassium Chloride 40 meq/ (Sodium Chloride) 1,020 mls @ 100 mls/hr IV .[id number] [facility] Last Admin: 02/05/17 23:42 Dose: 100 mls/hr Metronidazole (Flagyl) 500 mg in 100 mls @ 100 mls/hr IVPB Q8 [facility] PRN Reason: Protocol Last Admin: 02/06/17 06:04 Dose: 100 mls/hr Ceftriaxone Sodium (Rocephin 1 Gram Ivpb) 1 gm in 100 mls @ 100 mls/hr IVPB DAILY [facility] PRN Reason: Protocol Morphine Sulfate (Morphine) 4 mg IVP Q4 PRN PRN Reason: Pain, moderate (4-7) Ondansetron HCl (Zofran Inj) 4 mg IVP Q4 PRN PRN Reason: Nausea/Vomiting Pantoprazole Sodium (Protonix Inj) 40 mg IVP DAILY [facility] Physical Exam - Constitutional Appears: No Acute Distress - Head Exam Head Exam: NORMOCEPHALIC - Eye Exam Eye Exam: Normal appearance. absent: Scleral icterus - ENT Exam ENT Exam: Mucous Membranes Moist - Neck Exam Neck exam: Positive for: Normal Inspection - Respiratory Exam Respiratory Exam: Clear to Auscultation Bilateral, Respiratory Distress, NORMAL BREATHING PATTERN - Cardiovascular Exam Cardiovascular Exam: +S1, +S2 - GI/Abdominal Exam GI & Abdominal Exam: Normal Bowel Sounds, Soft, Tenderness (right upper quadrant /epigastric). absent: Guarding, Organomegaly, Rebound - Extremities Exam Extremities exam: Positive for: pedal pulses present. Negative for: calf tenderness, pedal edema - Neurological Exam Neurological exam: Alert, Oriented x3 - Skin Skin Exam: Dry, Warm Results - Vital Signs Recent Vital Signs: Last Vital Signs Temp 98.1 F 02/06/17 08:55 Pulse 83 02/06/17 08:55 Resp 18 02/06/17 08:55 BP 98/67 L 02/06/17 08:55 Pulse Ox 98 09/21/17 08:55 - Labs Result Diagrams: 02/06/17 07:15 02/06/17 07:15 Labs: Laboratory Results - last 24 hr 02/05/17 02/06/17 02/06/17 23:02 07:15 07:15 WBC 8.1 RBC 2.88 L Hgb 11.3 L D Hct 33.1 L MCV 114.9 H MCH 39.2 H MCHC 34.1 RDW 15.4 H Plt Count 162 MPV 10.6 Gran % 68.9 H Lymph % (Auto) 24.1 [place] % (Auto) 6.2 H Eos % (Auto) 0.6 L Baso % (Auto) 0.2 Gran # 5.59 Lymph # 2.0 [place] # 0.5 Eos # 0.1 Baso # 0.02 Sodium 138 Potassium 4.4 Chloride 111 H Carbon Dioxide 20 L Anion Gap 11 BUN 5 L Creatinine 0.6 Est GFR ( Amer) > 60 Est GFR (Non-Af Amer) > 60 Random Glucose 78 Calcium 7.6 L Total Bilirubin 1.7 H AST 173 H D ALT 71 H Alkaline Phosphatase 201 H D Total Protein 6.3 Albumin 2.6 L Globulin 3.7 Albumin/Globulin Ratio 0.7 L Urine Color Dark yellow Urine Appearance Clear Urine pH 7.0 Ur Specific [place] 1.015 Urine Protein Trace H Urine Glucose (UA) Negative Urine Ketones Negative Urine Blood Negative Urine Nitrate Negative Urine Bilirubin Negative Urine Urobilinogen 2.0 H Ur Leukocyte Esterase Negative Urine RBC Negative Urine WBC 2 - 5 Ur Epithelial Cells 4 - 5 Urine Bacteria Mod Urine HCG, Qual Negative Assessment & Plan - Assessment and Plan (Free Text) Assessment: Assessment: Abdominal pain Elevated liver enzymes differentials:gallstones, rule out infectious hepatitis or could be secondary to EtOH History of EtOH Cholelithiasis, r/o acute cholecytitis Plan: Nothing by mouth Continue IV fluids Continue PPI Check hepatitis panel on IV antibiotics Trend LFTs Patient is for cholecystectomy today, discussed with surgery regarding intraoperative cholangiogram and obtaining liver biopsy. Detailed discussion done with patient regarding recommendations and findings, all questions answered. Thank you for this consult and for allowing us to participate in your patient's care, further recommendations based upon clinical course. Seen and discussed with Dr. Solis. <Zoran Solis V - Last Filed: 02/06/17 23:56> Meds - Medications Medications: Current Medications Potassium Chloride 40 meq/ (Sodium Chloride) 1,020 mls @ 100 mls/hr IV .[id number] [facility] Last Admin: 02/05/17 23:42 Dose: 100 mls/hr Metronidazole (Flagyl) 500 mg in 100 mls @ 100 mls/hr IVPB Q8 [facility] PRN Reason: Protocol Last Admin: 02/06/17 22:10 Dose: 100 mls/hr Ceftriaxone Sodium (Rocephin 1 Gram Ivpb) 1 gm in 100 mls @ 100 mls/hr IVPB DAILY [facility] PRN Reason: Protocol Morphine Sulfate (Morphine) 4 mg IVP Q4 PRN PRN Reason: Pain, moderate (4-7) Last Admin: 02/06/17 18:19 Dose: 4 mg Ondansetron HCl (Zofran Inj) 4 mg IVP Q4 PRN PRN Reason: Nausea/Vomiting Last Admin: 02/06/17 22:10 Dose: 4 mg Pantoprazole Sodium (Protonix Inj) 40 mg IVP DAILY [facility] Last Admin: 02/06/17 18:01 Dose: 40 mg Results - Vital Signs Recent Vital Signs: Last Vital Signs Temp 97.5 F L 02/06/17 19:00 Pulse 62 02/06/17 19:00 Resp 18 02/06/17 19:00 BP 102/62 02/06/17 19:00 Pulse Ox 98 02/06/17 19:00 - Labs Result Diagrams: 02/06/17 07:15 02/06/17 07:15 Labs: Laboratory Results - last 24 hr 02/06/17 02/06/17 02/06/17 07:15 07:15 09:22 WBC 8.1 RBC 2.88 L Hgb 11.3 L D Hct 33.1 L MCV 114.9 H MCH 39.2 H MCHC 34.1 RDW 15.4 H Plt Count 162 MPV 10.6 Gran % 68.9 H Lymph % (Auto) 24.1 [place] % (Auto) 6.2 H Eos % (Auto) 0.6 L Baso % (Auto) 0.2 Gran # 5.59 Lymph # 2.0 [place] # 0.5 Eos # 0.1 Baso # 0.02 Sodium 138 Potassium 4.4 Chloride 111 H Carbon Dioxide 20 L Anion Gap 11 BUN 5 L Creatinine 0.6 Est GFR ( Amer) > 60 Est GFR (Non-Af Amer) > 60 Random Glucose 78 Calcium 7.6 L Total Bilirubin 1.7 H AST 173 H D ALT 71 H Alkaline Phosphatase 201 H D Total Protein 6.3 Albumin 2.6 L Globulin 3.7 Albumin/Globulin Ratio 0.7 L Hepatitis A IgM Ab Negative Hep Bs Antigen Negative Hep B Core IgM Ab Negative Hepatitis C Antibody Negative Attending/Attestation - Attestation I have personally seen and examined this patient.: Yes I have fully participated in the care of the patient.: Yes I have reviewed all pertinent clinical information: Yes Notes (Text): 02/06/17 23:56 p
[2017-02-06] MEDS ORDERED: Propofol 10 mg/ml Inj (20 ML) ONE (13:36)
[2017-02-06] MEDS ORDERED: Lidocaine 1% Inj (20ml) ONE (13:37)
[2017-02-06] MEDS ORDERED: Succinylcholine 200 mg/10 ml Inj IV ONE (13:37)
[2017-02-06] MEDS ORDERED: Rocuronium 10 mg/ml (5 ml) ONE (13:37)
[2017-02-06] MEDS ORDERED: Neostigmine Methylsulfate 3mg/3ml Syringe IV ONE (13:37)
[2017-02-06] MEDS ORDERED: HYDROmorphone 0.5 mg/0.5 ml ISec IVP PRN (16:34)
--- NOTE | 2017-02-06 16:35 | PCM.SURG1 ---
Surgeon's Initial Post Op Note - Surgeon's Notes Surgeon: MD Ulysses Manager Knowledge: , PGY4. Brittni, PGY2. Pre-Operative Diagnosis: Cholecystitis Operative Findings: distended gallbladder, abnormal liver Post-Operative Diagnosis: Cholecystitis, Abnormal liver Operation Performed: Laparoscopic Cholecystectomy, liver biopsy Specimen/Specimens Removed: gallbladder Estimated Blood Loss: EBL {In ML}: 20 Date of Surgery/Procedure: 02/06/17 Time of Surgery/Procedure: 14:30
[2017-02-06] MEDS ORDERED: HYDROmorphone 0.5 mg/0.5 ml ISec ONE (16:55)
[2017-02-06] MEDS: Morphine 4 mg/ml ISec IVP PRN (18:19)
--- NOTE | 2017-02-07 02:55 | PN ---
DATE: SUBJECTIVE: The patient is seen and examined on the bedside, early in the morning still complaining about abdominal pain especially in the right side going towards the back, still n.p.o., waiting for the surgery. No fever. No chills. No shortness of breath. No hematuria. No hematochezia. PHYSICAL EXAMINATION: VITAL SIGNS: Temperature 97.5, pulse 62, blood pressure 102/52, respiratory rate 18. HEENT: Head, normocephalic and atraumatic. Eyes, PERRLA. Extraocular muscles intact. Conjunctivae clear. Nose patent. NECK: Supple. No carotid bruits. No JVD or thyromegaly. CHEST: Bilaterally symmetrical. HEART: S1 and S2 positive. LUNGS: Clear to auscultation. ABDOMEN: Soft. Bowel sounds positive. No organomegaly. EXTREMITIES: No edema. No cyanosis. NEUROLOGICAL: The patient is awake and alert. Moving all 4 extremities. No focal deficits. MEDICATIONS: Flagyl, morphine, potassium, Protonix, Rocephin, Zofran. LABORATORY DATA: White blood cells 7.1, hemoglobin 11.3, hematocrit 33.1, platelets 162. Sodium 138, potassium 4.4, BUN 5, creatinine 0.6, calcium 7.6, AST 173, ALT 71, alkaline phosphatase 201. ASSESSMENT AND PLAN: Mrs. Ralph Crabtree is a 46-year-old lady with history of hypokalemia, replaced, hyperchloremia, hypocalcemia, hyperbilirubinemia, abnormal liver function test, back to trending down, anemia, proteinuria, bilirubinuria, all hepatitis are negative. Planned for surgery, seen by surgeon Dr. Thaddeus Arora and NAVIN Saucedo. History of ethanol abuse, continue IV fluids, PPI, hepatitis panel was checked, it is negative, on antibiotics. Discussion done with the patient's nurse, the patient by herself. Gastrointestinal and deep venous thrombosis prophylaxis. Repeat labs. We will follow up. Phuong Chi MD
[2017-02-07] MEDS: metroNIDAZOLE IV 500 mg/100 ml 500 MG/100 ML BAG IVPB SCH (06:27)
[2017-02-07] MEDS: Morphine 4 mg/ml ISec IVP PRN (06:28)
[2017-02-07 07:09] LABS: HEMATOCRIT 32.1 % (36.0-48.0); MEAN CELL VOLUME 116.7 fl (80.0-105.0); MEAN CORPUSCULAR HEMOGLOBIN 39.3 pg (25.0-35.0); MEAN CORPUSCULAR HGB CONC 33.6 g/dl (31.0-37.0); MEAN PLATELET VOLUME 10.4 fl (7.0-11.0); RED CELL DISTRIBUTION WIDTH 15.4 % (11.5-14.5); WHITE BLOOD COUNT 9.9 10^3/ul (4.5-11.0)
[2017-02-07] MEDS ORDERED: Oxycodone/Acetaminophen 5/325 mg Tab PO PRN (07:21)
[2017-02-07 07:40] VITALS: BP 127/81; PULSE 67; RESP 20; TEMP 98.3; O2SAT 99
[2017-02-07 07:47] LABS: ALB/GLOB RATIO 0.7 (1.1-1.8); ALKALINE PHOSPHATASE 175 U/L (38-126); ALT/SGPT 61 U/L (7-56); AST/SGOT 122 U/L (14-36); BILIRUBIN,DIRECT 0.7 mg/dL (0.0-0.4); BILIRUBIN,TOTAL 1.2 mg/dL (0.2-1.3); BLOOD UREA NITROGEN 5 mg/dL (7-21); CALCIUM 7.7 mg/dL (8.4-10.5); CARBON DIOXIDE 21 mmol/L (21-33); CHLORIDE 109 mmol/L (98-107); GFR AFRICAN-AMERICAN > 60; GLUCOSE,RANDOM 86 mg/dL (70-110); POTASSIUM 4.5 mmol/L (3.6-5.0); SODIUM 138 mmol/L (132-148)
[2017-02-07 09:05] LABS: IRON 137 ug/dL (45-180)
--- NOTE | 2017-02-07 11:17 | CP.PCM.PN ---
Subjective - Date & Time of Evaluation Date of Evaluation: 02/07/17 Time of Evaluation: 06:40 - Subjective Subjective: Surgery Note for Dr. Arora 46F seen and examined at bedside. Patient states she feels much better. Mild nausea overnight but has since resolved. Denies fevers, chills. Ready to try PO intake. Objective - Vital Signs/Intake and Output Vital Signs (last 24 hours): Temp Pulse Resp BP Pulse Ox 98.3 F 67 20 127/81 99 02/07/17 07:30 02/07/17 07:30 02/07/17 07:30 02/07/17 07:30 02/07/17 07:30 Intake and Output: 02/07/17 02/07/17 06:59 18:59 Intake Total 0 Balance 0 - Medications Medications: Current Medications Potassium Chloride 40 meq/ (Sodium Chloride) 1,020 mls @ 100 mls/hr IV .[id number] [facility] Last Admin: 02/07/17 03:30 Dose: 100 mls/hr Metronidazole (Flagyl) 500 mg in 100 mls @ 100 mls/hr IVPB Q8 SASHA PRN Reason: Protocol Last Admin: 02/07/17 06:27 Dose: 100 mls/hr Ceftriaxone Sodium (Rocephin 1 Gram Ivpb) 1 gm in 100 mls @ 100 mls/hr IVPB DAILY [facility] PRN Reason: Protocol Last Admin: 02/07/17 09:27 Dose: 100 mls/hr Ondansetron HCl (Zofran Inj) 4 mg IVP Q4 PRN PRN Reason: Nausea/Vomiting Last Admin: 02/07/17 06:28 Dose: 4 mg Oxycodone/Acetaminophen (Percocet 5/325 Mg Tab) 1 tab PO Q4H PRN PRN Reason: Pain, moderate (4-7) Stop: 02/10/17 07:22 Pantoprazole Sodium (Protonix Inj) 40 mg IVP DAILY [facility] Last Admin: 02/07/17 09:26 Dose: 40 mg - Labs Labs: 02/07/17 07:03 02/07/17 07:03 PT 12.3 Seconds (9.9-11.8) H 02/05/17 09:28 INR 1.14 (0.93-1.08) H 02/05/17 09:28 APTT 28.0 Seconds (23.7-30.8) 02/05/17 09:28 - Constitutional Appears: Non-toxic, No Acute Distress - Respiratory Exam Respiratory Exam: Clear to Ausculation Bilateral, NORMAL BREATHING PATTERN - Cardiovascular Exam Cardiovascular Exam: REGULAR RHYTHM, +S1, +S2 - GI/Abdominal Exam GI & Abdominal Exam: Soft. absent: Distended, Firm, Guarding, Rigid, Tenderness , Rebound Additional comments: incisions clean dry intact - Neurological Exam Neurological Exam: Alert, Awake - Skin Skin Exam: Dry, Intact, Normal Color, Warm Assessment and Plan - Assessment and Plan (Free Text) Assessment: 46F s/p laparoscopic cholecystectomy and intra-op core needle liver biopsy POD1 Plan: - Advance diet to regular - pain control, antibiotics, IVF - monitor incision - Possible DC if tolerating diet. Further recs discuss with Dr. Ulysses Elkins, PGY2
--- NOTE | 2017-02-07 12:34 | RAD ---
PROCEDURE: ERCP HISTORY: ? CBD OBST. COMPARISON: None TECHNIQUE: Standard protocol for this study/examination. FINDINGS: Total fluoroscopic time (continuous mode) utilized during the procedure: 27.8 seconds. IMPRESSION: Less than 1 hr fluoroscopic time utilized during performance of the procedure.
[2017-02-07 14:15] LABS: FOLATE 2.3 ng/mL
--- NOTE | 2017-02-08 07:56 | OP ---
PROCEDURE DATE: PREOPERATIVE DIAGNOSIS: [id number] cholecystitis and lithiasis with a very distended gallbladder in the face of elevated liver functions and the CAT scan showing fatty deposits in the liver. Discussion with Dr. Solis, we plan to do liver biopsy, cholecystectomy, and intraoperative cholangiogram. The patient had been delayed for an emergency at another institution on my part. He was very upset. After long discussion, we offered her many options including another surgeon, another facility and another time. We proceeded with the operation. SURGEON: Dr. Arora. DIVISION HUMAN RESOURCES MANAGER: Dr. Douglass. FINDINGS: Distended gallbladder with hydrops, stones, short cystic duct and a pathologically looking liver. ESTIMATED BLOOD LOSS: About 100 mL. COMPLICATIONS: None. SPECIMEN: Liver biopsy, gall bladder, and cholangiogram. DESCRIPTION OF PROCEDURE: In the operating room, after the successful time-out, the patient was identified by name, name of the procedure, laterality, my shaquille, her consent, her name, number, wrist band, and birthday. The operation proceeded. An infraumbilical incision was made as there was a palpable mass that was obviously the gallbladder that was somewhat palpable preop; however, after anesthesia, we could easily get in the way of the trocars. The was inserted without incident. The water test was normal. Visi-Port was placed after insufflating about 3 L of CO2 with good tympany and opening pressure of about 10 that rapidly went down to 5. Visi-Port was placed somewhat off midline, but went in nicely. This was followed by xiphoid . The gallbladder was decompressed with Veress needle removing a large amount of clear mucinous material consistent with hydrops. The fundus was then pulled up nicely as it was very redundant. The distal part of the gallbladder was found that seemed eccentric, that was pulled up nicely. The peritoneum on the inferior part was then pulled down exposing quickly presumptive cystic duct and presumptive cystic artery. Dissection here was gentle and slow. The cystic duct was circumscribed and an inferior structure was eventually became clear as the common duct. The cystic artery was circumscribed and eventually ascertained to be the cystic artery. The posterior part behind the cystic duct and the artery was cleaned very nicely. The clip was placed high in the gallbladder and the cystic duct was opened, cholangiogram was obtained. On the second try, the first time the balloon came out, it showed into the distal common duct very nicely. The catheter itself was in the common. The balloon was deflated and right hepatic ducts very nicely. There was in fact a short cystic duct and was confirmed. Under direct vision, a clip was placed on the cystic duct, however, it was at the limits of its length, the converted to a 11 mm and the larger clip was applied twice and divided. This was done under direct vision and seen perfectly appropriate. The cystic duct was then cleaned, examined, doubly clipped and divided and gall bladder taken off the liver bed initially with difficulty because of fibrosis, but as we got up, it was because it was deeply embedded in the liver. It simply would not separate from the liver, requiring the Harmonic scalpel and the spatula alternately to get control. A large cystic artery was seen going into the gallbladder , this was doubly clipped and divided, that was posteriorly on the inferior edge. Eventually, gallbladder was completely removed by multiple manipulations, placed in the bag and removed through the umbilicus. The area was cleaned, dried, irrigated nicely. There was no bleeding no bile. Liver biopsy was made with a Trucut needle through an area of concerned close to the gallbladder bed. It was cauterized and followed for 20 minutes over the course of the operation without bleeding. The end of the operation was re-examined. There was nothing the areas were irrigated and dried. The trocars were removed under direct vision and the wounds were closed with stitch of 2-0 Vicryl. The wound was injected with Marcaine, approximately 30 mL and closed with PDS and Dermabond. The patient was taken to the recovery room in good condition after the sponge and needle counts declared correct. She wanted to go home tonight, although it was late and my best judgment was to keep her at least overnight. Thaddeus Arora MD
--- NOTE | 2017-02-09 04:55 | DS ---
CHIEF COMPLAINT: Abdominal pain. HISTORY OF PRESENT ILLNESS: Ms. Leyda Rosas is 46 years old female came to the emergency room with abdominal pain. The patient seen by PMD and was advised to go the emergency department because of high liver enzymes. The patient complaining of right upper quadrant abdominal pain and epigastric pain from couple of months going towards the back. The patient was told to get her gallbladder taken out in [place], but she denies that at time. Now, the patient is seen by some doctor and sent to ER because of the abnormal liver function test. I saw patient on 02/05/2017. Boyfriend was also there. The patient has gallstones. CAT scan of abdomen and pelvis done. Ultrasound of abdomen was done. Seen by the surgeon, Dr. Thaddeus Arora. GI consult called with Dr. Solis. The patient had surgery on 02/06/[address] Arora. Food is given on 02/07/2017, tolerated, cleared by the surgeon, discharged home with prescription of Percocet. Follow with primary care physician and surgeon. PAST MEDICAL HISTORY: Orthopedic surgery. FAMILY HISTORY: Father and mother noncontributory. HABITS: Light smoker. Alcohol, yes. Drinking few days per week. Denies substance abuse. ALLERGIES: THE PATIENT IS NOT ALLERGIC WITH ANY MEDICATION. HOME MEDICATIONS: Denied by the patient. REVIEW OF SYSTEMS: The patient seen and examined on the bedside, looking comfortable. Tolerated food. No nausea or vomiting. No headache or dizziness. No chest pain. No palpitation. No fever. No chills. No hematuria. No hematochezia. PHYSICAL EXAMINATION: VITAL SIGNS: Temperature 98.3, pulse 57, blood pressure 127/81 and respiratory rate 20. HEENT: Head normocephalic and atraumatic. Eyes; PERRLA. Extraocular muscles intact. Conjunctivae clear. Nose patent. Mucous membrane moist. NECK: Supple. No carotid bruit. No JVD or thyromegaly. CHEST: Bilaterally symmetrical. HEART: S1 and S2 positive. LUNGS: Clear to auscultation. ABDOMEN: Soft and tender at surgical place. Bowel sounds positive. EXTREMITIES: No edema. No cyanosis. NEUROLOGIC: The patient is awake and alert. Moving all 4 extremities. No focal deficit. LABORATORY DATA: White blood cell is 9.9, hemoglobin 10.8, hematocrit 32.1 and platelets 150. Sodium 138, potassium 4.5, BUN 5, creatinine 0.5, calcium 7.7, iron 188, saturation 73. On admission, AST was 173, repeat is 122, ALT was 71, repeat is 51, alkaline phosphatase is 201, repeat is 175. TSH 4.69. ASSESSMENT AND PLAN: Ms. Ralph Crabtree is 46-year-old lady with hyperchloremia, abnormal liver function test, hypocalcemia, rule out hypothyroidism, anemia. On admission, hemoglobin was 13.5, on discharge is 10.8, need monitoring, even liver function test need monitoring, right now trending down, proteinuria, urine bilirubinemia, abdominal pain better. Food given tolerated. History of right anterior cruciate ligament repair, still smoking, urged to quit. Education done about drinking. Seen by gastroenterology and surgery. According to gastroenterology, rule out infectious hepatitis, will be secondary to ethanol, cholelithiasis, acute cholecystitis. The patient was made n.p.o., IV fluids given, proton pump inhibitor given. Workup ordered to check hepatitis panel. IV antibiotics given. Cholecystectomy done by Dr. Arora. After seeing the patient's nursing staff, fatty liver, rule out fibroid uterus, 1 cm adnexal cyst, need gastroenterology followup as an outpatient. The patient was given food, tolerated very well, did physical therapy, cleared by the surgeon and gastroenterology. Discharged home. Pain medications given by the surgery. Follow up with gastroenterology for abnormal liver function test. Surgery for post surgical followup and primary care physician. May be the patient need K[employer]OCIATE followup as outpatient. Deep venous thrombosis and gastrointestinal prophylaxis given. Phuong Chi MD
== END 2017-02-07 14:37 | disposition home or self-care (01) | DRG 419 ==
LOC: ED 08:57 → EROBSV 09:00 → ERH 13:34 → OBSVTOIN 13:34 → ERH 14:09 → 5RNO 14:55
PROVIDERS: ADMIT Internal Medicine; ATTEND Internal Medicine
PROC: 0FB04ZX Excision of Liver, Percutaneous Endoscopic Approach, Diagnostic (ICD-10-PCS; 2017-02-06)
PROC: BF131ZZ Fluoroscopy of Gallbladder and Bile Ducts using Low Osmolar Contrast (ICD-10-PCS; 2017-02-06)
PROC: 0FT44ZZ Resection of Gallbladder, Percutaneous Endoscopic Approach (ICD-10-PCS; principal; 2017-02-06 09:30)
DX: K80.10 Calculus of gallbladder with chronic cholecystitis without obstruction (principal); E83.51 Hypocalcemia; K75.81 Nonalcoholic steatohepatitis (NASH); K76.0 Fatty (change of) liver, not elsewhere classified; E87.6 Hypokalemia; F17.210 Nicotine dependence, cigarettes, uncomplicated

== ENCOUNTER 2017-02-10 07:19 | Inpatient (IN) | payer BC ==
--- NOTE | 2017-02-10 07:37 | ED PDOC ---
Arrival/HPI <Chele Souza - Last Filed: 02/10/17 11:44> <Derick Trujillo - Last Filed: 02/10/17 13:33> - General Time Seen by Provider: 02/10/17 07:24 - History of Present Illness Narrative History of Present Illness (Text): 46 year old female 5 days s/p cholecystectomy who presents with diffuse abdominal pain with radiation to the back, nausea, vomiting, decreased PO intake to solid foods, and 5 days of constipation. She denies any associated fever or chills. She scales the pain 10/10 in severity and states she has been unable to sleep for the past 2 days because of her abdominal discomfort/ distention. She tried taking Maalox and Prune juice to relieve her constipation , but this was unsuccessful in helping her pass a BM. 02/10/17 08:03 (Chele Souza) Past Medical History - Provider Review Nursing Documentation Reviewed: Yes - Cardiac Hx Cardiac Disorders: No Other/Comment: smoking, drinking(drink few days per week) - Pulmonary Hx Respiratory Disorders: No - Neurological Hx Neurological Disorder: No - HEENT Hx HEENT Disorder: No - Renal Hx Renal Disorder: No - Endocrine/Metabolic Hx Endocrine Disorders: No - Hematological/Oncological Hx Blood Disorders: No - Integumentary Hx Dermatological Disorder: No - Musculoskeletal/Rheumatological Hx Musculoskeletal Disorders: Yes - Gastrointestinal Hx Gastrointestinal Disorders: No - Genitourinary/Gynecological Hx Genitourinary Disorders: No - Psychiatric Hx Psychophysiologic Disorder: No Hx Substance Use: No - Surgical History Hx Orthopedic Surgery: Yes <Derick Trujillo - Last Filed: 02/10/17 13:33> Family/Social History - Physician Review Nursing Documentation Reviewed: Yes Family/Social History: No Known Family HX Smoking Status: Light Smoker < 10 Cigarettes Daily Hx Alcohol Use: Yes (mix drink usually every fri-sat-sun) Hx Substance Use: No <Derick Trujillo - Last Filed: 02/10/17 13:33> Allergies/Home Meds <Chele Souza - Last Filed: 02/10/17 11:44> <Derick Trujillo - Last Filed: 02/10/17 13:33> Allergies/Adverse Reactions: Allergies No Known Allergies Allergy (Verified 02/05/17 09:07) Review of Systems - Physician Review All systems were reviewed & negative as marked: Yes - Review of Systems Constitutional: absent: Fevers, Night Sweats Eyes: absent: Vision Changes, Photophobia Respiratory: Cough. absent: SOB, Wheezing Cardiovascular: absent: Chest Pain, Palpitations Gastrointestinal: Abdominal Pain, Constipation, Food Intolerance Genitourinary Female: Normal. absent: Hematuria Musculoskeletal: absent: Neck Pain, Joint Swelling Skin: Other (post-surgical scars noted) Neurological: Normal. absent: Focal Weakness, Gait Changes Hemo/Lymphatic: absent: Easy Bleeding, Easy Bruising Psychiatric: absent: Anxiety, Depression <Chele Souza - Last Filed: 02/10/17 11:44> Physical Exam Vital Signs Reviewed: Yes Temperature: Afebrile Blood Pressure: Normal Pulse: Regular Respiratory Rate: Normal Appearance: Positive for: Non-Toxic Pain Distress: Moderate Mental Status: Positive for: Alert and Oriented X 3. No: Confused - Systems Exam Head: Present: Atraumatic, Normocephalic Pupils: Present: PERRL Extroacular Muscles: Present: EOMI Conjunctiva: Present: Normal Mouth: Present: Dry. No: Normal Lips Pharnyx: Present: Normal. No: Peritonsilar Swelling Neck: No: Meningeal Signs, JVD Respiratory/Chest: Present: Clear to Auscultation. No: Accessory Muscle Use Cardiovascular: Present: Regular Rate and Rhythm, Normal S1, S2 Abdomen: Present: Tenderness, Distention Back: Present: Normal Inspection. No: CVA Tenderness Upper Extremity: Present: Normal Inspection, Normal ROM, NORMAL PULSES Lower Extremity: Present: Normal Inspection. No: Edema, Adonis's Sign Neurological: Present: CN II-XII Intact, Speech Normal, Gait Normal Skin: Present: Warm, Dry, Normal Color Psychiatric: Present: Alert, Oriented x 3, Normal Insight, Normal Concentration <Chele Souza - Last Filed: 02/10/17 11:44> Vital Signs Temp Pulse Resp BP Pulse Ox 02/10/17 12:49 86 17 136/81 100 02/10/17 11:00 75 18 133/79 100 02/10/17 09:53 82 18 135/87 100 02/10/17 07:20 98.6 F 87 18 139/90 100 Medical Decision Making <Chele Souza - Last Filed: 02/10/17 11:44> <Derick Trujillo - Last Filed: 02/10/17 13:33> ED Course and Treatment: Patient seen and examined with resident. Came up with treatment and disposition plan with resident. 02/10/17 07:39 patient after recent cholecystectomy with continued post-op pain seen by Dr. Arora, asked to obtain labs and HIDA 02/10/17 09:[address] Arora, states pt will need admission and ERCP, also asked for CT will call Dr. Chi for admission 02/10/17 11:[address] Irma Chi asked to admit to service or hospitalist awaiting callback from Dr. Villegas 02/10/17 13:[address] Villegas, asked to admit to hospitalist dw Dr. Frederick, accepted admission pt aware of and agrees with plan Report Date : 02/10/2017 12:45:48 PROCEDURE: CT scan abdomen and pelvis dated 02/10/2017 Dictator : Randolph Hernandez MD IMPRESSION: Status post cholecystectomy. Additional findings consistent with mild pancreatitis surrounding infiltration and small amount of free intraperitoneal fluid. Moderate fatty hepatic infiltration with what appears represent fatty sparing left lobe liver. This could be confirmed with MRI as indicated on prior CT scan abdomen pelvis. Distended cecum at ascending colon however no evidence of acute mechanical large or small bowel obstruction. (Derick Trujillo) - Lab Interpretations Lab Results: 02/10/17 07:40 02/10/17 07:40 Lab Results 02/10/17 11:15: Amylase 65 02/10/17 10:42: Urine Color Yellow, Urine Appearance Clear, Urine pH 6.0, Ur Specific [place] 1.025, Urine Protein 30 H, Urine Glucose (UA) Negative, Urine Ketones >=80, Urine Blood Moderate H, Urine Nitrate Negative, Urine Bilirubin Small H, Urine Urobilinogen 0.2, Ur Leukocyte Esterase Negative, Urine RBC 0 - 2 , Urine WBC Negative, Ur Epithelial Cells 1 - 3 02/10/17 08:00: Blood Type B POSITIVE, Antibody Screen Negative, BBK History Checked Patient has bt 02/10/17 07:40: Sodium 137, Potassium 3.0 L, Chloride 101, Carbon Dioxide 22, Anion Gap 17, BUN 7, Creatinine 0.4 L, Est GFR ( Amer) > 60, Est GFR (Non -Af Amer) > 60, Random Glucose 97, Calcium 8.2 L, Total Bilirubin 1.3, AST 68 H D, ALT 51, Alkaline Phosphatase 187 H, Total Protein 7.1, Albumin 3.2, Globulin 3.9, Albumin/Globulin Ratio 0.8 L, Lipase 1177 H 02/10/17 07:40: PT 13.3 H, INR 1.23 H, APTT 26.1 02/10/17 07:40: WBC 21.3 H D, RBC 3.21 L, Hgb 13.1 D, Hct 36.5, MCV 113.7 H D, MCH 40.8 H, MCHC 35.9, RDW 15.3 H, Plt Count 170, MPV 10.2, Gran % 85.1 H, Lymph % (Auto) 9.1 L, Hill % (Auto) 5.3, Eos % (Auto) 0.4 L, Baso % (Auto) 0.1, Gran # 18.11 H, Lymph # 1.9, Hill # 1.1 H, Eos # 0.1, Baso # 0.02 - RAD Interpretation Radiology Orders: 02/10/17 07:54 ABD 2 VIEWS (FLAT/UP OR DECUB) [RAD] Stat 02/10/17 08:09 BILIARY SCAN (HIDA) [NM] Stat 02/10/17 10:17 ABD PELVIS PO & IV CONTRAST [CT] Stat - Medication Orders Current Medication Orders: Sodium Chloride (Sodium Chloride 0.9%) 1,000 mls @ 150 mls/hr IV .[id number] [facility] Last Admin: 02/10/17 11:23 Dose: 150 mls/hr eMAR Start Stop Document 02/10/17 11:23 SF (Rec: 02/10/17 11:24 SF [facility] [id number] Intravenous Solution Start Date 02/10/17 Start Time 11:23 End Date 02/10/17 End time 17:23 Total Infusion Time 360 Discontinued Medications Piperacillin Sod/Tazobactam Sod (Zosyn 4.5 Gm In Ns 100ml) 4.5 gm in 100 mls @ 200 mls/hr IVPB STAT STA PRN Reason: Protocol Stop: 02/10/17 08:54 Last Admin: 02/10/17 10:12 Dose: 200 mls/hr eMAR Start Stop Document 02/10/17 10:12 SF (Rec: 02/10/17 10:13 SF [facility] [id number] Intravenous Solution Start Date 02/10/17 Start Time 10:12 End Date 02/10/17 End time 10:42 Total Infusion Time 30 Magnesium Sulfate/Dextrose (Magnesium Sulfate 1 Gm/100 Ml D5w) 1 gm in 100 mls @ 100 mls/hr IVPB ONCE ONE Stop: 02/10/17 12:08 Last Admin: 02/10/17 11:30 Dose: 100 mls/hr eMAR Start Stop Document 02/10/17 11:30 SF (Rec: 02/10/17 11:30 SF [facility] [id number] Intravenous Solution Start Date 02/10/17 Start Time 11:30 End Date 02/10/17 End time 12:30 Total Infusion Time 60 Iohexol (Omnipaque 240 (50 Ml)) Confirm Administered Dose 50 ml .ROUTE .STK-MED ONE Stop: 02/10/17 10:23 Iohexol (Omnipaque 350 100 Ml) Confirm Administered Dose 350 mg .ROUTE .STK-MED ONE Stop: 02/10/17 12:26 Morphine Sulfate (Morphine) 6 mg IVP STAT STA Stop: 02/10/17 10:04 Last Admin: 02/10/17 10:44 Dose: 6 mg MAR Pain Assessment Document 02/10/17 10:44 SF (Rec: 02/10/17 10:45 SF [facility] [place] Pain Reassessment Is this a pain reassessment? Yes Sleep Is patient sleeping during reassessment? No Presence of Pain Presence of Pain Yes IVP Administration Document 02/10/17 10:44 SF (Rec: 02/10/17 10:45 SF [facility] [place] Charges for Administration # of IVP Administrations 1 Potassium Chloride (K-Dur 20 Meq Er Tab) 40 meq PO STAT STA Stop: 02/10/17 11:00 Last Admin: 02/10/17 11:29 Dose: 40 meq Potassium Chloride (K-Dur 20 Meq Er Tab) 40 meq PO STAT STA Stop: 02/10/17 11:02 Last Admin: 02/10/17 11:30 Dose: 40 meq Disposition/Present on Arrival <Chele Souza - Last Filed: 02/10/17 11:44> - Present on Arrival Any Indicators Present on Arrival: No History of DVT/PE: No History of Uncontrolled Diabetes: No Urinary Catheter: No History Surgical Site Infection Following: None - Disposition Have Diagnosis and Disposition been Completed?: Yes Disposition Time: 09:33 Patient Plan: Admission <Derick Trujillo - Last Filed: 02/10/17 13:33> - Disposition Diagnosis: Abdominal pain Disposition: HOSPITALIZED Patient Problems: Current Active Problems Problem Status Onset Abdominal pain Acute Condition: FAIR Referrals: Leydi Patel MD [Primary Care Provider] - Follow up with primary
[2017-02-10 07:41] VITALS: BMI 33.6
[2017-02-10 08:05] LABS: BASO # 0.02 K/mm3 (0.0-2.0); BASO % 0.1 % (0.0-3.0); EOS # 0.1 (0.0-0.7); EOS % 0.4 % (1.5-5.0); GRAN # 18.11 (1.4-6.5); GRAN % 85.1 % (50.0-68.0); HEMATOCRIT 36.5 % (36.0-48.0); LYMPH # 1.9 (1.2-3.4); LYMPH % 9.1 % (22.0-35.0); MEAN CELL VOLUME 113.7 fl (80.0-105.0); MEAN CORPUSCULAR HEMOGLOBIN 40.8 pg (25.0-35.0); MEAN CORPUSCULAR HGB CONC 35.9 g/dl (31.0-37.0); MEAN PLATELET VOLUME 10.2 fl (7.0-11.0); MONO # 1.1 (0.1-0.6); MONO % 5.3 % (1.0-6.0); RED CELL DISTRIBUTION WIDTH 15.3 % (11.5-14.5); WHITE BLOOD COUNT 21.3 10^3/ul (4.5-11.0)
[2017-02-10 08:15] LABS: INR 1.23 (0.93-1.08); PARTIAL THROMBOPLASTIN TIME 26.1 Seconds (23.7-30.8)
[2017-02-10 08:17] LABS: ALB/GLOB RATIO 0.8 (1.1-1.8); ALKALINE PHOSPHATASE 187 U/L (38-126); ALT/SGPT 51 U/L (7-56); AST/SGOT 68 U/L (14-36); BILIRUBIN,TOTAL 1.3 mg/dL (0.2-1.3); BLOOD UREA NITROGEN 7 mg/dL (7-21); CALCIUM 8.2 mg/dL (8.4-10.5); CARBON DIOXIDE 22 mmol/L (21-33); CHLORIDE 101 mmol/L (98-107); GFR AFRICAN-AMERICAN > 60; GLUCOSE,RANDOM 97 mg/dL (70-110); LIPASE 1177 U/L (23-300); SODIUM 137 mmol/L (132-148); TOTAL PROTEIN 7.1 g/dL (5.8-8.3)
[2017-02-10] MEDS ORDERED: Piperacill/Tazo 4.5gm in NS 4.5 GM/100 ML BAG IVPB STA (08:25)
[2017-02-10] MEDS ORDERED: Iohexol 240 (50 ml) ONE (10:22)
[2017-02-10 10:55] LABS: URINE BILIRUBIN SMALL (NEGATIVE); URINE BLOOD MODERATE (NEGATIVE); URINE GLUCOSE (UA) NEGATIVE (NEGATIVE); URINE KETONE >=80 mg/dL (NEGATIVE); URINE LEUKOCYTE ESTERASE NEGATIVE Leu/uL (NEGATIVE); URINE PROTEIN 30 mg/dL (<30 mg/dL); URINE UROBILINOGEN 0.2 E.U./dL (<1 E.U./dL)
[2017-02-10 10:57] LABS: URINE APPEARANCE CLEAR (CLEAR); URINE COLOR YELLOW (YELLOW)
[2017-02-10] MEDS ORDERED: Potassium Chloride 20 mEq ER Tab PO STA ×2 (10:59→11:01)
[2017-02-10 11:02] LABS: URINE RBC 0 - 2 /hpf (0-2); URINE WBC NEGATIVE /hpf (0-6)
[2017-02-10] MEDS ORDERED: Magnesium Sulfate 1 gm in D5W 1 GM/100 ML BAG IVPB ONE (11:09)
[2017-02-10] MEDS ORDERED: Sodium Chloride 0.9% 1,000 ML IV SCH ×2 (11:15→16:32)
--- NOTE | 2017-02-10 11:25 | CP.PCM.CON ---
<Rae Hines - Last Filed: 02/10/17 11:48> History of Present Illness - History of Present Illness History of Present Illness: GI CONSULT NOTE FOR DR. THAO 46yo F with PMHx of etoh abuse and recent cholecystectomy 3 days ago presented to the ED with diffuse abdominal pain that radiates to her back. She states the symptoms have been present since she was discharged 2 days ago. She denies nausea or vomiting. She has not had a BM since surgery. She has tried Maalox and Prune juice to relieve her constipation but it did not help. Patient denies drinking since admission. Patient also notes some discharge from one of the lateral laparoscopic incision sites. Patient was previously admitted here at [facility] from 02/05 - 02/08. At that time, she presented with elevated liver enzymes and RUQ and epigastric abdominal pain. A CT showed distended gallbladder (without signs of cholecystitis) and fatty liver disease. US showed distended gallbladder, cholelithiasis, and normal CBD. On 02/07, she had a laparoscopic cholecystectomy with liver biopsy by Dr. Arora. She was discharged home to follow up with GI as an outpatient for workup of her elevated LFTs. PMHx: etoh abuse Surgeries: Right ACL repair Allergies: none Social history: tobacco abuse, moderate weekly drinking for years (pt states hasn't drank since last admission), denies illicit drug use Review of Systems - Review of Systems All systems: reviewed and no additional remarkable complaints except (as per HPI ) Past Patient History - Past Social History Smoking Status: Light Smoker < 10 Cigarettes Daily - CARDIAC Hx Cardiac Disorders: No Other/Comment: smoking, drinking(drink few days per week) - PULMONARY Hx Respiratory Disorders: No - NEUROLOGICAL Hx Neurological Disorder: No - HEENT Hx HEENT Problems: No - RENAL Hx Chronic Kidney Disease: No - ENDOCRINE/METABOLIC Hx Endocrine Disorders: No - HEMATOLOGICAL/ONCOLOGICAL Hx Blood Disorders: No - INTEGUMENTARY Hx Dermatological Problems: No - MUSCULOSKELETAL/RHEUMATOLOGICAL Hx Musculoskeletal Disorders: Yes - GASTROINTESTINAL Hx Gastrointestinal Disorders: No - GENITOURINARY/GYNECOLOGICAL Hx Genitourinary Disorders: No - PSYCHIATRIC Hx Psychophysiologic Disorder: No Hx Substance Use: No - SURGICAL HISTORY Hx Orthopedic Surgery: Yes - ANESTHESIA Hx Anesthesia: No Meds Allergies/Adverse Reactions: Allergies Allergy/AdvReac Type Severity Reaction Status Date / Time No Known Allergies Allergy Verified 02/05/17 09:07 - Medications Medications: Current Medications Magnesium Sulfate/Dextrose (Magnesium Sulfate 1 Gm/100 Ml D5w) 1 gm in 100 mls @ 100 mls/hr IVPB ONCE ONE Stop: 02/10/17 12:08 Sodium Chloride (Sodium Chloride 0.9%) 1,000 mls @ 150 mls/hr IV .Q6H40M SASHA Physical Exam - Constitutional Appears: Well, Non-toxic, No Acute Distress - Head Exam Head Exam: ATRAUMATIC, NORMAL INSPECTION - Eye Exam Eye Exam: EOMI, Normal appearance - Respiratory Exam Respiratory Exam: NORMAL BREATHING PATTERN. absent: Respiratory Distress - Cardiovascular Exam Cardiovascular Exam: +S1, +S2 - GI/Abdominal Exam GI & Abdominal Exam: Distended, Soft, Tenderness (mild diffuse tenderness). absent: Firm, Guarding, Rebound, Rigid Additional comments: Dermabond present on laparoscopic incision sites No drainage noted from lateral port site - Back Exam Back exam: NORMAL INSPECTION. absent: CVA tenderness (L), CVA tenderness (R) - Neurological Exam Neurological exam: Alert, CN II-XII Intact, Oriented x3 - Psychiatric Exam Psychiatric exam: Normal Affect, Normal Mood - Skin Skin Exam: Dry, Normal Color, Warm Results - Vital Signs Recent Vital Signs: Last Vital Signs Temp 98.6 F 02/10/17 07:20 Pulse 75 02/10/17 11:00 Resp 18 02/10/17 11:00 BP 133/79 02/10/17 11:00 Pulse Ox 100 02/10/17 11:00 - Labs Result Diagrams: 02/10/17 07:40 02/10/17 07:40 Labs: Laboratory Results - last 24 hr 02/10/17 02/10/17 02/10/17 07:40 07:40 07:40 WBC 21.3 H D RBC 3.21 L Hgb 13.1 D Hct 36.5 MCV 113.7 H D MCH 40.8 H MCHC 35.9 RDW 15.3 H Plt Count 170 MPV 10.2 Gran % 85.1 H Lymph % (Auto) 9.1 L Coffey % (Auto) 5.3 Eos % (Auto) 0.4 L Baso % (Auto) 0.1 Gran # 18.11 H Lymph # 1.9 Coffey # 1.1 H Eos # 0.1 Baso # 0.02 PT 13.3 H INR 1.23 H APTT 26.1 Sodium 137 Potassium 3.0 L Chloride 101 Carbon Dioxide 22 Anion Gap 17 BUN 7 Creatinine 0.4 L Est GFR ( Amer) > 60 Est GFR (Non-Af Amer) > 60 Random Glucose 97 Calcium 8.2 L Total Bilirubin 1.3 AST 68 H D ALT 51 Alkaline Phosphatase 187 H Total Protein 7.1 Albumin 3.2 Globulin 3.9 Albumin/Globulin Ratio 0.8 L Lipase 1177 H Urine Color Urine Appearance Urine pH Ur Specific Arden Urine Protein Urine Glucose (UA) Urine Ketones Urine Blood Urine Nitrate Urine Bilirubin Urine Urobilinogen Ur Leukocyte Esterase Urine RBC Urine WBC Ur Epithelial Cells Blood Type Antibody Screen BBK History Checked 02/10/17 02/10/17 08:00 10:42 WBC RBC Hgb Hct MCV MCH MCHC RDW Plt Count MPV Gran % Lymph % (Auto) Coffey % (Auto) Eos % (Auto) Baso % (Auto) Gran # Lymph # Coffey # Eos # Baso # PT INR APTT Sodium Potassium Chloride Carbon Dioxide Anion Gap BUN Creatinine Est GFR ( Amer) Est GFR (Non-Af Amer) Random Glucose Calcium Total Bilirubin AST ALT Alkaline Phosphatase Total Protein Albumin Globulin Albumin/Globulin Ratio Lipase Urine Color Yellow Urine Appearance Clear Urine pH 6.0 Ur Specific Arden 1.025 Urine Protein 30 H Urine Glucose (UA) Negative Urine Ketones >=80 Urine Blood Moderate H Urine Nitrate Negative Urine Bilirubin Small H Urine Urobilinogen 0.2 Ur Leukocyte Esterase Negative Urine RBC 0 - 2 Urine WBC Negative Ur Epithelial Cells 1 - 3 Blood Type B POSITIVE Antibody Screen Negative BBK History Checked Patient has bt Assessment & Plan - Assessment and Plan (Free Text) Assessment: 46yo F with PMHx of etoh abuse and recent cholecystectomy 3 days ago who presented with diffuse abdominal pain that radiates to her back. - Afebrile, VSS - Leukocytosis WBC 21.3 (normal on previous admission) - Hypokalemia 3.0 - being replaced by ED - AST 68 (122 on DC), ALT 51 (61 on DC), Alk phos 187 (175) - Hepatitis panel negative on previous admission - Lipase elevated 1,177 - Patient was evaluated in ED by Dr. Arora who requested HIDA to rule out bile leak - CT Abd Pelvis with PO & IV contrast pending, will FU - IV Abx - NPO - IV Fluids - Pain control PRN - Discussed plan with Dr. Irma Hines PGY-3 <Zoran Thao V - Last Filed: 02/10/17 23:24> Meds - Medications Medications: Current Medications Famotidine (Pepcid) 20 mg IVP DAILY SASHA Sodium Chloride (Sodium Chloride 0.9%) 1,000 mls @ 200 mls/hr IV .Q5H SASHA Last Admin: 02/10/17 18:46 Dose: 200 mls/hr Piperacillin Sod/Tazobactam Sod (Zosyn 3.375 In Ns 100ml) 100 mls @ 200 mls/hr IVPB Q6 SASHA PRN Reason: Protocol Stop: 02/11/17 06:29 Ondansetron HCl (Zofran Inj) 4 mg IVP Q6H PRN PRN Reason: Nausea/Vomiting Tramadol HCl (Ultram) 50 mg PO Q6H PRN PRN Reason: Pain, moderate (4-7) Last Admin: 02/10/17 21:39 Dose: 50 mg Results - Vital Signs Recent Vital Signs: Last Vital Signs Temp 98.6 F 02/10/17 07:20 Pulse 75 02/10/17 15:09 Resp 18 02/10/17 17:16 BP 130/71 02/10/17 15:09 Pulse Ox 100 02/10/17 15:09 - Labs Result Diagrams: 02/10/17 07:40 02/10/17 07:40 Attending/Attestation - Attestation I have personally seen and examined this patient.: Yes I have fully participated in the care of the patient.: Yes I have reviewed all pertinent clinical information: Yes Notes (Text): This is an addendum to GI progress report dictated by Resident.The patient was seen and examined earlier. Medical records, lab studies, imagings were reviewed. Last 24 hours events reviewed. Agreed with the above treatment plan as outlined in Resident's notes the with the addition of the following Status post cholecystectomy Intraoperative cholangiogram reviewed no filling defect On examination soft. Distended abdomen significant diffuse tenderness maximum in the epigastric and left upper quadrant area HIDA scan was reviewed no leak CT scan showed a pancreatitis involving the body and tail area maximum minimal amount of ascites present Significantly elevated WBC count Will follow up cultures Would continue empiric antibiotic however H IV fluid and close monitoring of intake output Thank you very much for allowing us to participate in the care of the patient We will continue to closely follow up her care and suggest further management based on the clinical course 02/10/17 23:21
[2017-02-10] MEDS ORDERED: Iohexol 350 MG/100 ML VIAL ONE (12:25)
--- NOTE | 2017-02-10 12:55 | NM ---
PROCEDURE: Nuclear Medicine Hepatobiliary Scan no HISTORY: post op pain COMPARISON: 02/05/2017 CT abdomen and pelvis, abdominal ultrasound. 02/06/2017 ERCP. February 10, 2017. CT abdomen and pelvis. TECHNIQUE: 6.9 mCi of technetium 99m Mebrofenin was administered intravenously. Planar images of the abdomen were obtained at 5 min intervals to 60 mins. Delayed images were also obtained. FINDINGS: LIVER: Timely and homogenous uptake. COMMON BILE DUCT: identified at 12 mins. GALLBLADDER: Status post cholecystectomy. No evidence of bile leak. SMALL BOWEL: Identified at 25 mins. IMPRESSION: Status post cholecystectomy ; no evidence of bile leak.
--- NOTE | 2017-02-10 13:09 | CT ---
PROCEDURE: CT scan abdomen and pelvis dated 02/10/2017 HISTORY: Abdominal pain. COMPARISON: Comparison made with prior CT scan of the abdomen and pelvis 02/05/2017. TECHNIQUE: Bowel no bold Radiation dose: Total exam DLP = 550.55 MGy-cm. This CT exam was performed using one or more of the following dose reduction techniques: Automated exposure control, adjustment of the mA and/or kV according to patient size, and/or use of iterative reconstruction technique. FINDINGS: LOWER THORAX: There is a small hiatal hernia with slight wall thickening of the distal esophagus likely due to protrusion gastric mucosa. Possibility of esophagitis not excluded. The small left-sided effusion and minimal left basilar atelectasis. Mild right basilar atelectasis. . LIVER: Liver is borderline/mildly enlarged measuring nearly 19 cm in CC dimension. Mild to moderate diffuse fatty hepatic infiltration. Note again made of moderate to fairly significant diffuse fatty hepatic infiltration with what probably represents localized sparing of within the medial aspect left lobe. As mentioned on prior CT scan confirmation of fatty infiltration could be confirmed with MRI of the liver if necessary. No gross intra or extrahepatic biliary ductal dilatation GALLBLADDER AND BILE DUCTS: Status post cholecystectomy. Metallic clips in the gallbladder fossa. There is a small amount of free fluid in the gallbladder fossa as well. No gross intra or extrahepatic biliary ductal dilatation PANCREAS: The pancreas is enlarged with what appears represent mild diffuse edema/ swelling and infiltration changes an fluid in the peripancreatic fat extends into the left para renal space. No gross intrahepatic biliary ductal dilatation SPLEEN: Spleen exhibits normal size and attenuation pattern without mass collection or calcification. ADRENALS: No adrenal masses KIDNEYS AND URETERS: Kidneys demonstrate symmetric nephrograms. No evidence of nephrolithiasis or hydronephrosis. VASCULATURE: Unremarkable. No aortic aneurysm. BOWEL: Evaluation of the bowel is somewhat limited due to incomplete opacification. The stomach is distended with oral contrast material and air. . Questionable minimal thickening of wall crossing the 3rd and 4th portions of the duodenum possibly related to S adjacent pancreatitis. The remaining visualized loops of small bowel exhibit relatively normal contour and caliber. No evidence acute mechanical small bowel obstruction. Cecum is markedly distended as is the proximal ascending colon with oral contrast material and solid/ liquid stool. There is no evidence of obstruction however with oral contrast material extending to the rectum. . APPENDIX: Appendix is not seen with certainty on this study. PERITONEUM: Free fluid is present within the pelvis and also seen about the cecum and proximal ascending colon. Also appears to be the any of small amount fluid surrounding the proximal ascending colon as well. LYMPH NODES: No significant adenopathy. BLADDER: Urinary bladder is physiologically distended. No evidence intraluminal gallbladder calculi. REPRODUCTIVE: Uterus and adnexal structures grossly unremarkable. BONES: Osseous structures intact. OTHER FINDINGS: Mild infiltration changes seen within the subcutaneous tissues of the anterior and right anterolateral abdominal wall IMPRESSION: Status post cholecystectomy. Additional findings consistent with mild pancreatitis surrounding infiltration and small amount of free intraperitoneal fluid. . . Moderate fatty hepatic infiltration with what appears represent fatty sparing left lobe liver. This could be confirmed with MRI as indicated on prior CT scan abdomen pelvis. Distended cecum at ascending colon however no evidence of acute mechanical large or small bowel obstruction.
--- NOTE | 2017-02-10 13:32 | RAD ---
HISTORY: abd pain, hx of ilius COMPARISON: No correlation made with prior CT scan abdomen pelvis 02/05/2017 FINDINGS: BOWEL: Oral contrast material is seen throughout the small large bowel. No evidence of acute mechanical bowel obstruction with oral contrast material extending into the colon. . No gross free intraperitoneal air under the diaphragmatic surfaces. Metallic clips right upper quadrant of the abdomen consistent with reason prior cholecystectomy BONES: Normal. OTHER FINDINGS: None. IMPRESSION: Recent prior cholecystectomy. No evidence of acute mechanical bowel obstruction
--- NOTE | 2017-02-10 14:34 | CP.PCM.HP ---
<Terrie Packer - Last Filed: 02/10/17 16:38> History of Present Illness - History of Present Illness History of Present Illness: Patient is a 46 year old female s/p Laparoscopic Cholecystectomy POD# 4 that was recently discharged on 02/07 presents to [facility] [place] for abdominal pain that radiates to the back accompanied with nausea/vomiting and abdominal distention since Friday. Abdominal pain is intermittent and diffuse, sharp in nature. States that on Friday she was not able to keep food down, was only tolerating water. last episode of vomiting was yesterday. Admits to passing flatus but has not had a BM in 5 days. Tried prune juice and Maalox for constipation with no relief. States that she noticed yellowish fluid coming from one the incision site yesterday. Denies fevers, chills, headaches, dizziness, cp, palpitations, urinary symptoms. Allergies: NKDA Medications: Denies Medical Hx: Denies Surgical Hx: Lap Cholecystectomy (2017), R ACL repair Social Hx: Smokes 10-15 cig/day, has not had an alcoholic beverage since last admission, denies drug use; currently employed Family Hx: Non-contributory Present on Admission - Present on Admission Any Indicators Present on Admission: No History of DVT/PE: No History of Uncontrolled Diabetes: No Urinary Catheter: No Decubitus Ulcer Present: No Review of Systems - Constitutional Constitutional: absent: Chills, Fever - EENT Eyes: absent: Change in Vision - Cardiovascular Cardiovascular: absent: Chest Pain, Dyspnea, Lightheadedness, Palpitations - Respiratory Respiratory: absent: Cough, Dyspnea, Wheezing - Gastrointestinal Gastrointestinal: Abdominal Pain, Bloating, Constipation, Nausea, Vomiting. absent: Diarrhea - Genitourinary Genitourinary: absent: Dysuria, Urinary Frequency - Musculoskeletal Musculoskeletal: Back Pain. absent: Numbness, Tingling - Neurological Neurological: absent: Dizziness, Numbness, Headaches, Weakness - Psychiatric Psychiatric: absent: Anxiety, Confusion, Depression Past Patient History - Past Social History Smoking Status: Light Smoker < 10 Cigarettes Daily - CARDIAC Hx Cardiac Disorders: No Other/Comment: smoking, drinking(drink few days per week) - PULMONARY Hx Respiratory Disorders: No - NEUROLOGICAL Hx Neurological Disorder: No - HEENT Hx HEENT Problems: No - RENAL Hx Chronic Kidney Disease: No - ENDOCRINE/METABOLIC Hx Endocrine Disorders: No - HEMATOLOGICAL/ONCOLOGICAL Hx Blood Disorders: No - INTEGUMENTARY Hx Dermatological Problems: No - MUSCULOSKELETAL/RHEUMATOLOGICAL Hx Musculoskeletal Disorders: Yes - GASTROINTESTINAL Hx Gastrointestinal Disorders: No - GENITOURINARY/GYNECOLOGICAL Hx Genitourinary Disorders: No - PSYCHIATRIC Hx Psychophysiologic Disorder: No Hx Substance Use: No - SURGICAL HISTORY Hx Orthopedic Surgery: Yes - ANESTHESIA Hx Anesthesia: No Meds Home Medications: Home Medication List Medication Instructions Recorded Confirmed Type Potassium Chloride [K-Dur 20] 20 meq PO DAILY #3 tab 02/15/17 Rx Allergies/Adverse Reactions: Allergies Allergy/AdvReac Type Severity Reaction Status Date / Time No Known Allergies Allergy Verified 02/05/17 09:07 Physical Exam - Constitutional Appears: Well, No Acute Distress - Head Exam Head Exam: ATRAUMATIC, NORMAL INSPECTION - Eye Exam Eye Exam: EOMI, Normal appearance Pupil Exam: NORMAL ACCOMODATION - ENT Exam ENT Exam: Mucous Membranes Moist - Neck Exam Neck exam: Positive for: Full Rom, Normal Inspection - Respiratory Exam Respiratory Exam: Clear to Auscultation Bilateral, NORMAL BREATHING PATTERN. absent: Rales, Rhonchi, Wheezes - Cardiovascular Exam Cardiovascular Exam: REGULAR RHYTHM, +S1, +S2 - GI/Abdominal Exam GI & Abdominal Exam: Distended, Soft, Tenderness. absent: Rebound, Rigid Additional comments: Generalized abdominal tenderness Dermabond present on laparoscopic incision sites No drainage noted from lateral port site - Extremities Exam Extremities exam: Positive for: full ROM, normal inspection. Negative for: calf tenderness - Back Exam Back exam: NORMAL INSPECTION - Neurological Exam Neurological exam: Alert, CN II-XII Intact, Normal Gait, Oriented x3 - Psychiatric Exam Psychiatric exam: Normal Affect, Normal Mood - Skin Skin Exam: Dry, Intact, Normal Color, Warm Results - Vital Signs Recent Vital Signs: Last Vital Signs Temp 98.6 F 02/10/17 07:20 Pulse 78 02/10/17 13:37 Resp 18 02/10/17 13:37 BP 132/75 02/10/17 13:37 Pulse Ox 100 02/10/17 13:37 - Labs Result Diagrams: 02/10/17 07:40 02/10/17 07:40 Assessment & Plan - Assessment and Plan (Free Text) Assessment: 46 year old female s/p Lap cholecystectomy POD#4 who recently discharged on 02/07 , presents with abdominal pain associated with nausea/vomiting and abdominal distention Plan: 1. Abdominal pain - likely 2/2 pancreatitis and constipation -VSS, Afebrile -Lipase elevated 1177 -CT abd/pelvis showing no obstruction, distended cecum, mild pancreatitis -HIDA showing no evidence of bile leak -KUB showing no evidence of acute mechanical obstruction -IV fluid hydration NS @150cc/hr -Diet: NPO -Zofran prn nausea -Pain control: Morphine 2mg q4H prn, Dilaudid 1mg q4H prn -Milk of magnesia -Received 1 dose of Zosyn in ED, will monitor off antibiotics at this time -GI consulted, f/u recommendations -Surgery consulted, f/u recommendations 2. Leukocytosis -F/U CXR -F/U blood cultures, urine cultures -Procalcitonin ordered 3. Transaminitis -Liver function improving since previous admission -Continue to monitor -Avoid hepatotoxic medications 4. Hypokalemia -Potassium 3.0 on admission -Repleted, continue to monitor 5. Tobacco abuse -Encourage tobacco cessation 6. GI/DVT ppx -Pepcid 20mg IV -SCDs <Domenica Brown B - Last Filed: 02/15/17 16:37> Results - Vital Signs Recent Vital Signs: Last Vital Signs Temp 97.8 F 02/15/17 06:00 Pulse 76 02/15/17 06:00 Resp 20 02/15/17 06:00 BP 132/90 02/15/17 06:00 Pulse Ox 99 02/15/17 06:00 - Labs Result Diagrams: 02/15/17 06:00 02/15/17 06:00 Labs: Laboratory Results - last 24 hr 02/15/17 02/15/17 06:00 06:00 WBC 13.6 H RBC 2.79 L Hgb 11.0 L Hct 31.1 L MCV 111.5 H MCH 39.4 H MCHC 35.4 RDW 14.9 H Plt Count 309 MPV 10.2 Gran % 65.4 Lymph % (Auto) 23.3 Gordon % (Auto) 9.3 H Eos % (Auto) 1.3 L Baso % (Auto) 0.7 Gran # 8.89 H Lymph # 3.2 Gordon # 1.3 H Eos # 0.2 Baso # 0.09 Sodium 135 Potassium 3.1 L Chloride 100 Carbon Dioxide 27 Anion Gap 11 BUN 3 L Creatinine 0.4 L Est GFR ( Amer) > 60 Est GFR (Non-Af Amer) > 60 Random Glucose 100 Calcium 8.5 Phosphorus 3.3 Magnesium 1.8 Total Bilirubin 0.7 AST 65 H D ALT 42 Alkaline Phosphatase 191 H Total Protein 6.7 Albumin 3.1 Globulin 3.6 Albumin/Globulin Ratio 0.9 L Attending/Attestation - Attestation I have personally seen and examined this patient.: Yes I have fully participated in the care of the patient.: Yes I have reviewed all pertinent clinical information: Yes Notes (Text): I have seen and examined the patient at bedside. Agree with the note above with the following additions/ exceptions: Briefly this is 46 year old female with recent lap cholecystectomy and IOP revealed no filling defect came with N,V, abdominal pain and distention and found to have pancreatitis of unknown cause. HIDA showed no biliary leak. Patient is made NPO and will start IVF, analgesics and antiemetics. Will follow up on cultures and hold off on antibiotics at this time. Discussed with GI and surgery team. Upon discharge patient will follow up with Dr Leydi Patel. Dr Domenica Brown
[2017-02-10] MEDS ORDERED: Morphine 2 mg/ml ISec IVP PRN (14:38)
[2017-02-10] MEDS ORDERED: HYDROmorphone 1 mg/ml ISec IVP PRN (14:39)
--- NOTE | 2017-02-10 16:26 | CP.PCM.CON ---
History of Present Illness - History of Present Illness History of Present Illness: SURGERY CONSULT NOTE FOR DR. LEWIS 46F presents with diffused abdominal pain that radiates to the mid-back. She states pain started the day after initial discharge. Abdominal pain was diffused but higher in intensity on the right side of the abdomen. She states it was initially associated with vomiting when she ate solid food. She is able to tolerate liquid diet. Patient also states she felt the right side of her abdomen was more distended than the rest. She denies fevers, chills. PMH: denies PSH: Baron castanedae 02/06/17 Allergies: NKDA Past Patient History - Past Social History Smoking Status: Light Smoker < 10 Cigarettes Daily - CARDIAC Hx Cardiac Disorders: No Other/Comment: smoking, drinking(drink few days per week) - PULMONARY Hx Respiratory Disorders: No - NEUROLOGICAL Hx Neurological Disorder: No - HEENT Hx HEENT Problems: No - RENAL Hx Chronic Kidney Disease: No - ENDOCRINE/METABOLIC Hx Endocrine Disorders: No - HEMATOLOGICAL/ONCOLOGICAL Hx Blood Disorders: No - INTEGUMENTARY Hx Dermatological Problems: No - MUSCULOSKELETAL/RHEUMATOLOGICAL Hx Musculoskeletal Disorders: Yes - GASTROINTESTINAL Hx Gastrointestinal Disorders: No - GENITOURINARY/GYNECOLOGICAL Hx Genitourinary Disorders: No - PSYCHIATRIC Hx Psychophysiologic Disorder: No Hx Substance Use: No - SURGICAL HISTORY Hx Orthopedic Surgery: Yes - ANESTHESIA Hx Anesthesia: No Meds Allergies/Adverse Reactions: Allergies Allergy/AdvReac Type Severity Reaction Status Date / Time No Known Allergies Allergy Verified 02/05/17 09:07 - Medications Medications: Current Medications Famotidine (Pepcid) 20 mg IVP DAILY [facility] Hydromorphone HCl (Dilaudid) 1 mg IVP Q4H PRN PRN Reason: Pain, severe (8-10) Sodium Chloride (Sodium Chloride 0.9%) 1,000 mls @ 150 mls/hr IV .Q6H40M [facility] Last Admin: 02/10/17 11:23 Dose: 150 mls/hr Morphine Sulfate (Morphine) 2 mg IVP Q4H PRN PRN Reason: Pain, moderate (4-7) Ondansetron HCl (Zofran Inj) 4 mg IVP Q6H PRN PRN Reason: Nausea/Vomiting Physical Exam - Constitutional Appears: Non-toxic, No Acute Distress - Head Exam Head Exam: ATRAUMATIC - ENT Exam ENT Exam: Mucous Membranes Moist - Respiratory Exam Respiratory Exam: Clear to Auscultation Bilateral, NORMAL BREATHING PATTERN - Cardiovascular Exam Cardiovascular Exam: REGULAR RHYTHM, +S1, +S2 - GI/Abdominal Exam GI & Abdominal Exam: Distended, Soft, Tenderness. absent: Firm, Guarding, Rebound, Rigid - Extremities Exam Extremities exam: Negative for: pedal edema, tenderness - Neurological Exam Neurological exam: Alert, Oriented x3 - Psychiatric Exam Psychiatric exam: Normal Affect, Normal Mood - Skin Skin Exam: Dry, Intact, Normal Color, Warm Results - Vital Signs Recent Vital Signs: Last Vital Signs Temp 98.6 F 02/10/17 07:20 Pulse 75 02/10/17 15:09 Resp 18 02/10/17 15:09 BP 130/71 02/10/17 15:09 Pulse Ox 100 02/10/17 15:09 - Labs Result Diagrams: 02/10/17 07:40 02/10/17 07:40 Assessment & Plan - Assessment and Plan (Free Text) Assessment: 46F s/p lap cholecystectomy POD4 on last admission, presents with abdominal pain CT: mild pancreatic inflammation, distended cecum and ascending colon, full with stool Plan: - NPO, IVF - Milk of magnesia - replace potassium - Admit patient for pancreatitis treatment - f/u AM labs Discussed with Dr. Ulysses Elkins, PGY2
[2017-02-10] MEDS ORDERED: Magnesium Hydroxide Susp 30 ml UD PO SCH (16:45)
--- NOTE | 2017-02-10 17:45 | RAD ---
HISTORY: COMPARISON: 02/05/2017 TECHNIQUE: Chest PA and lateral FINDINGS: LINES AND TUBES: None. LUNG AND PLEURA: The lungs are well inflated and clear. HEART AND MEDIASTINUM: The heart is not enlarged. The hilar and mediastinal contours are within normal limits. SKELETAL STRUCTURES: The bony structures are within normal limits for the patient's age. VISUALIZED UPPER ABDOMEN: Normal. OTHER FINDINGS: None. IMPRESSION: No active pulmonary disease.
--- NOTE | 2017-02-10 20:14 | CP.PCM.CON ---
History of Present Illness - History of Present Illness History of Present Illness: General surgery consult note for Dr. Dustin Leung, PGY-1 Pt S & E at bedside. 46F w/PMH sig for laparoscopic cholecystectomy on 02/06/17 consulted for evaluation for second opinion s/p surgery. Patient reports that after surgery, she was discharged home and noted increasing distention/bloating of her abdomen. Admits to N/V to everything but fruits and water, constipation x 5 days , but passing flatus. Pt tried soup/prune juice w/o allevation of symptoms. Noted that her RLQ incision site had some serous leakage. Pt came back to the hospital for back pain, abdominal pain, N/V with evaluation positive for findings suggestive of pancreatitis. Pt requested second opinion for post op course. PMH: Denies PSH: lap cholecystectomy on 02/06/17 All: NKDA SH: Admits to tobacco use #10-15 cigs/day, last ETOH prior to last admission, denies illicit drug use Review of Systems - Review of Systems All systems: reviewed and no additional remarkable complaints except - Constitutional Constitutional: absent: Chills, Fever, Headache - EENT Eyes: absent: Change in Vision Ears: absent: Dizziness Nose/Mouth/Throat: Dry Mouth - Cardiovascular Cardiovascular: absent: Chest Pain, Edema - Gastrointestinal Gastrointestinal: Abdominal Pain, Belching, Bloating, Change in Bowel Habits, Constipation, Excessive Flatus, Nausea, Vomiting. absent: Diarrhea - Genitourinary Genitourinary: absent: Change in Urinary Stream - Menstruation Menstruation: Abnormal Vaginal Bleeding - Musculoskeletal Musculoskeletal: Back Pain. absent: Numbness, Tingling - Integumentary Integumentary: Other (Bruising post op) - Neurological Neurological: absent: Weakness Past Patient History - Past Social History Smoking Status: Unknown If Ever Smoked - CARDIAC Hx Cardiac Disorders: No Other/Comment: smoking, drinking(drink few days per week) - PULMONARY Hx Respiratory Disorders: No - NEUROLOGICAL Hx Neurological Disorder: No - HEENT Hx HEENT Problems: No - RENAL Hx Chronic Kidney Disease: No - ENDOCRINE/METABOLIC Hx Endocrine Disorders: No - HEMATOLOGICAL/ONCOLOGICAL Hx Blood Disorders: No - INTEGUMENTARY Hx Dermatological Problems: No - MUSCULOSKELETAL/RHEUMATOLOGICAL Hx Musculoskeletal Disorders: Yes Hx Falls: No - GASTROINTESTINAL Hx Gastrointestinal Disorders: No - GENITOURINARY/GYNECOLOGICAL Hx Genitourinary Disorders: No - PSYCHIATRIC Hx Psychophysiologic Disorder: No - SURGICAL HISTORY Hx Orthopedic Surgery: Yes - ANESTHESIA Hx Anesthesia: No Meds Allergies/Adverse Reactions: Allergies Allergy/AdvReac Type Severity Reaction Status Date / Time No Known Allergies Allergy Verified 02/05/17 09:07 - Medications Medications: Current Medications Famotidine (Pepcid) 20 mg IVP DAILY [facility] Sodium Chloride (Sodium Chloride 0.9%) 1,000 mls @ 200 mls/hr IV .Q5H [facility] Last Admin: 02/10/17 18:46 Dose: 200 mls/hr Ondansetron HCl (Zofran Inj) 4 mg IVP Q6H PRN PRN Reason: Nausea/Vomiting Tramadol HCl (Ultram) 50 mg PO Q6H PRN PRN Reason: Pain, moderate (4-7) Physical Exam - Constitutional Appears: Non-toxic, No Acute Distress - Head Exam Head Exam: ATRAUMATIC, NORMAL INSPECTION, NORMOCEPHALIC - Eye Exam Eye Exam: EOMI, Normal appearance - ENT Exam ENT Exam: Mucous Membranes Dry, Normal Exam - Neck Exam Neck exam: Positive for: Full Rom, Normal Inspection - Respiratory Exam Respiratory Exam: Clear to Auscultation Bilateral, NORMAL BREATHING PATTERN. absent: Rales, Rhonchi, Wheezes, Respiratory Distress - Cardiovascular Exam Cardiovascular Exam: REGULAR RHYTHM, +S1, +S2 - GI/Abdominal Exam GI & Abdominal Exam: Distended, Hyperactive Bowel Sounds, Soft, Tenderness ( diffuse). absent: Firm, Guarding, Hernia, Rebound - Extremities Exam Extremities exam: Positive for: normal inspection. Negative for: pedal edema - Back Exam Back exam: NORMAL INSPECTION - Neurological Exam Neurological exam: Alert, CN II-XII Intact, Oriented x3 - Psychiatric Exam Psychiatric exam: Normal Affect, Normal Mood - Skin Skin Exam: Dry, Intact, Warm Additional comments: Abdominal surgical sites with moderate amount of ecchymoses, clear glue in place over incision sites Results - Vital Signs Recent Vital Signs: Last Vital Signs Temp 98.6 F 02/10/17 07:20 Pulse 75 02/10/17 15:09 Resp 18 02/10/17 17:16 BP 130/71 02/10/17 15:09 Pulse Ox 100 02/10/17 15:09 - Labs Result Diagrams: 02/10/17 07:40 02/10/17 07:40 Assessment & Plan - Assessment and Plan (Free Text) Assessment: 46F w/pancreatitis s/p lap cholecystectomy w/IOC, currently stable. Findings of leukocytosis possibly due to moderate ecchymoses vs. Left sided pleural effusion vs pancreatitis. CT of abdomen with findings indicating normal post op changes w/questional mild pancreatitis- likely due to medications vs. post op course Plan: -glycerin suppository -Monitor for BM -avoid opiates or medications that cause slow GI transit -D/c Milk of Mag -D/c dilaudid -Ultram 50mg Q6H PRN -Encourage ambulation/OOBTC -Encourage IS -FU AM lipase -Serial abdominal exams -Continue observation/interventions for pancreatitis diagnosis -No surgical intervention at this time, continue surgical management as per Dr. Ulysses TUTTLE attending Xochitl, PGY-1 - Date & Time Date: 02/10/17 Time: 19:45
[2017-02-11] MEDS: Piperacillin/Tazobact 3.375 gm 100 ML IVPB SCH ×2 (00:48→05:52)
[2017-02-11 07:03] LABS: BASO # 0.02 K/mm3 (0.0-2.0); BASO % 0.1 % (0.0-3.0); EOS # 0.1 (0.0-0.7); EOS % 0.6 % (1.5-5.0); GRAN # 14.07 (1.4-6.5); HEMATOCRIT 30.1 % (36.0-48.0); LYMPH # 1.6 (1.2-3.4); LYMPH % 9.2 % (22.0-35.0); MEAN CELL VOLUME 113.6 fl (80.0-105.0); MEAN CORPUSCULAR HEMOGLOBIN 39.2 pg (25.0-35.0); MEAN CORPUSCULAR HGB CONC 34.6 g/dl (31.0-37.0); MEAN PLATELET VOLUME 10.2 fl (7.0-11.0); MONO # 1.4 (0.1-0.6); MONO % 8.1 % (1.0-6.0); RED CELL DISTRIBUTION WIDTH 15.5 % (11.5-14.5); WHITE BLOOD COUNT 17.2 10^3/ul (4.5-11.0)
[2017-02-11 07:05] LABS: ALB/GLOB RATIO 0.8 (1.1-1.8); ALKALINE PHOSPHATASE 178 U/L (38-126); ALT/SGPT 45 U/L (7-56); AST/SGOT 62 U/L (14-36); BLOOD UREA NITROGEN 6 mg/dL (7-21); CALCIUM 7.3 mg/dL (8.4-10.5); CARBON DIOXIDE 18 mmol/L (21-33); CHLORIDE 104 mmol/L (98-107); GFR AFRICAN-AMERICAN > 60; GLUCOSE,RANDOM 72 mg/dL (70-110); LIPASE 458 U/L (23-300); MAGNESIUM 2.1 mg/dL (1.7-2.2); PHOSPHOROUS 2.5 mg/dL (2.5-4.5); POTASSIUM 3.1 mmol/L (3.6-5.0); SODIUM 135 mmol/L (132-148); TOTAL PROTEIN 5.6 g/dL (5.8-8.3)
--- NOTE | 2017-02-11 09:35 | CP.PCM.PN ---
Subjective - Date & Time of Evaluation Date of Evaluation: 02/11/17 Time of Evaluation: 06:45 - Subjective Subjective: Surgery Note for Dr. Arora 46F seen and examined at bedside. Patient continues to complain of abdominal discomfort which is diffuse with higher intensity on the right side of abdomen. Denies nausea, vomiting, and states she still has not had a bowel movement yet. Objective - Vital Signs/Intake and Output Vital Signs (last 24 hours): Temp Pulse Resp BP Pulse Ox 98.9 F 78 18 132/88 99 02/11/17 08:43 02/11/17 08:43 02/11/17 08:43 02/11/17 08:43 02/11/17 08:43 Intake and Output: 02/11/17 02/11/17 06:59 18:59 Intake Total 0 Balance 0 - Medications Medications: Current Medications Famotidine (Pepcid) 20 mg IVP DAILY [facility] Sodium Chloride (Sodium Chloride 0.9%) 1,000 mls @ 200 mls/hr IV .Q5H [facility] Last Admin: 02/10/17 18:46 Dose: 200 mls/hr Potassium Chloride (Potassium Chloride 20 Meq/100 Ml) 20 meq in 100 mls @ 50 mls/hr IVPB Q2H [facility] Stop: 02/11/17 13:14 Ondansetron HCl (Zofran Inj) 4 mg IVP Q6H PRN PRN Reason: Nausea/Vomiting Tramadol HCl (Ultram) 50 mg PO Q6H PRN PRN Reason: Pain, moderate (4-7) Last Admin: 02/11/17 05:59 Dose: 50 mg - Labs Labs: 02/11/17 06:41 02/11/17 06:41 PT 13.3 Seconds (9.9-11.8) H 02/10/17 07:40 INR 1.23 (0.93-1.08) H 02/10/17 07:40 APTT 26.1 Seconds (23.7-30.8) 02/10/17 07:40 - Constitutional Appears: Non-toxic, No Acute Distress - Respiratory Exam Respiratory Exam: Clear to Ausculation Bilateral, NORMAL BREATHING PATTERN - Cardiovascular Exam Cardiovascular Exam: REGULAR RHYTHM, +S1, +S2 - GI/Abdominal Exam GI & Abdominal Exam: Distended, Soft, Tenderness (mildly tender). absent: Firm , Guarding, Rigid, Rebound Additional comments: right lateral incision draining clear fluid. other three incisions clean dry intact - Neurological Exam Neurological Exam: Alert, Awake - Skin Skin Exam: Dry, Intact, Normal Color, Warm Assessment and Plan - Assessment and Plan (Free Text) Assessment: 46F s/p lap cholecystectomy POD5 on last admission, presents with abdominal pain /constipation CT: mild pancreatic inflammation, distended cecum and ascending colon, full with stool Plan: - NPO, IVF, pain control - suppositories - replace potassium - f/u AM labs Discussed with Dr. Ulysses Elkins, PGY2
--- NOTE | 2017-02-11 12:38 | CP.PCM.PN ---
<Terrie Packer - Last Filed: 02/11/17 12:43> Subjective - Date & Time of Evaluation Date of Evaluation: 02/11/17 Time of Evaluation: 07:55 - Subjective Subjective: Hospitalist Service Progress Note: Patient seen and examined at bedside. Per nursing no acute events overnight. Patient still having diffuse abdominal pain, rates 6/10. Passing flatus but no BM. States she had small drainage from R lateral port site yesterday. Denies fevers, chills, nausea, vomiting, cp, palpitations, urinary symptoms. Objective - Vital Signs/Intake and Output Vital Signs (last 24 hours): Temp Pulse Resp BP Pulse Ox 98.9 F 78 18 132/88 99 02/11/17 08:43 02/11/17 08:43 02/11/17 08:43 02/11/17 08:43 02/11/17 08:43 Intake and Output: 02/11/17 02/11/17 06:59 18:59 Intake Total 0 Balance 0 - Medications Medications: Current Medications Famotidine (Pepcid) 20 mg IVP DAILY [facility] Last Admin: 02/11/17 09:34 Dose: 20 mg Sodium Chloride (Sodium Chloride 0.9%) 1,000 mls @ 200 mls/hr IV .Q5H [facility] Last Admin: 02/10/17 18:46 Dose: 200 mls/hr Potassium Chloride (Potassium Chloride 20 Meq/100 Ml) 20 meq in 100 mls @ 50 mls/hr IVPB Q2H [facility] Stop: 02/11/17 13:14 Last Admin: 02/11/17 09:34 Dose: 50 mls/hr Ondansetron HCl (Zofran Inj) 4 mg IVP Q6H PRN PRN Reason: Nausea/Vomiting Tramadol HCl (Ultram) 50 mg PO Q6H PRN PRN Reason: Pain, moderate (4-7) Last Admin: 02/11/17 05:59 Dose: 50 mg - Labs Labs: 02/11/17 06:41 02/11/17 06:41 PT 13.3 Seconds (9.9-11.8) H 02/10/17 07:40 INR 1.23 (0.93-1.08) H 02/10/17 07:40 APTT 26.1 Seconds (23.7-30.8) 02/10/17 07:40 - Constitutional Appears: Non-toxic, No Acute Distress - Head Exam Head Exam: ATRAUMATIC, NORMAL INSPECTION - Eye Exam Eye Exam: EOMI, Normal appearance Pupil Exam: NORMAL ACCOMODATION, PERRL - ENT Exam ENT Exam: Mucous Membranes Moist - Neck Exam Neck Exam: Full ROM - Respiratory Exam Respiratory Exam: Clear to Ausculation Bilateral, NORMAL BREATHING PATTERN. absent: Rales, Rhonchi, Wheezes - Cardiovascular Exam Cardiovascular Exam: REGULAR RHYTHM, +S1, +S2 - GI/Abdominal Exam GI & Abdominal Exam: Distended, Soft, Tenderness, Normal Bowel Sounds. absent: Guarding, Rigid Additional comments: Incisions intact with dermabond 4x4 on R lateral port site, no drainage noted - Extremities Exam Extremities Exam: Full ROM, Normal Inspection - Back Exam Back Exam: NORMAL INSPECTION - Neurological Exam Neurological Exam: Alert, Awake, Normal Gait, Oriented x3 - Psychiatric Exam Psychiatric exam: Normal Affect, Normal Mood - Skin Skin Exam: Normal Color, Warm Assessment and Plan - Assessment and Plan (Free Text) Assessment: 46 year old female s/p Lap cholecystectomy POD#5 who recently discharged on 02/07 , presents with abdominal pain associated with nausea/vomiting and abdominal distention. CT abd/pelvis showing dilated cecum, no obstruction visualized Plan: 1. Abdominal pain - likely 2/2 pancreatitis and constipation -VSS, Afebrile -Lipase elevated 1177 on admission, trending down -CT abd/pelvis showing no obstruction, distended cecum, mild pancreatitis -HIDA showing no evidence of bile leak -KUB showing no evidence of acute mechanical obstruction -IV fluid hydration NS @200cc/hr -Diet: NPO, diet to be advanced per GI/Surgery recs -Zofran prn nausea -Pain control: Ultram prn -Bowel regimen per GI/surgery recommendations -GI consulted, f/u recommendations -Surgery consulted, f/u recommendations 2. Leukocytosis -CXR showing no active pulmonary disease -WBC down to 17.2 today, will continue to monitor -Blood cultures showing no growth x 24 hours -F/U urine cultures 3. Transaminitis -Liver function improving since previous admission -Continue to monitor -Avoid hepatotoxic medications 4. Hypokalemia -Potassium 3.1 -Repleted with K riders -Continue to monitor 5. Tobacco abuse -Encourage tobacco cessation 6. GI/DVT ppx -Pepcid 20mg IV -SCDs <Domenica Brown - Last Filed: 02/15/17 16:40> Objective - Vital Signs/Intake and Output Vital Signs (last 24 hours): Temp Pulse Resp BP Pulse Ox 97.8 F 76 20 132/90 99 02/15/17 06:00 02/15/17 06:00 02/15/17 06:00 02/15/17 06:00 02/15/17 06:00 Intake and Output: 02/15/17 02/15/17 06:59 18:59 Intake Total 960 480 Output Total 0 Balance 960 480 - Labs Labs: 02/15/17 06:00 02/15/17 06:00 PT 13.3 Seconds (9.9-11.8) H 02/10/17 07:40 INR 1.23 (0.93-1.08) H 02/10/17 07:40 APTT 26.1 Seconds (23.7-30.8) 02/10/17 07:40 Attending/Attestation - Attestation I have personally seen and examined this patient.: Yes I have fully participated in the care of the patient.: Yes I have reviewed all pertinent clinical information, including history, physical exam and plan: Yes Notes (Text): 02/15/17 16:38 I have seen and examined the patient at bedside. Agree with the note above with the following additions/ exceptions: Briefly this is 46 year old female with recent lap cholecystectomy and IOP revealed no filling defect came with N,V, abdominal pain and distention and found to have pancreatitis of unknown cause. HIDA showed no biliary leak. Continue NPO, IVF, analgesics and antiemetics. Will follow up on cultures and hold off on antibiotics at this time. Discussed with GI and surgery team. Upon discharge patient will follow up with Dr Leydi Patel. Dr Domenica Brown
--- NOTE | 2017-02-11 15:28 | CP.PCM.PN ---
<Rae Hines - Last Filed: 02/11/17 15:35> Subjective - Date & Time of Evaluation Date of Evaluation: 02/11/17 Time of Evaluation: 14:00 - Subjective Subjective: GI PROGRESS NOTE FOR DR. THAO Patient seen and examined at bedside. She reports that she feels better. Her pain is improved. She remains NPO. She denies nausea or vomiting. She had a BM after glycerin suppository. Objective - Vital Signs/Intake and Output Vital Signs (last 24 hours): Temp Pulse Resp BP Pulse Ox 98.9 F 78 18 132/88 99 02/11/17 08:43 02/11/17 08:43 02/11/17 08:43 02/11/17 08:43 02/11/17 08:43 Intake and Output: 02/11/17 02/11/17 06:59 18:59 Intake Total 0 Balance 0 - Medications Medications: Current Medications Famotidine (Pepcid) 20 mg IVP DAILY [facility] Last Admin: 02/11/17 09:34 Dose: 20 mg Sodium Chloride (Sodium Chloride 0.9%) 1,000 mls @ 200 mls/hr IV .Q5H [facility] Last Admin: 02/10/17 18:46 Dose: 200 mls/hr Ondansetron HCl (Zofran Inj) 4 mg IVP Q6H PRN PRN Reason: Nausea/Vomiting Tramadol HCl (Ultram) 50 mg PO Q6H PRN PRN Reason: Pain, moderate (4-7) Last Admin: 02/11/17 12:46 Dose: 50 mg - Labs Labs: 02/11/17 06:41 02/11/17 06:41 PT 13.3 Seconds (9.9-11.8) H 02/10/17 07:40 INR 1.23 (0.93-1.08) H 02/10/17 07:40 APTT 26.1 Seconds (23.7-30.8) 02/10/17 07:40 - Constitutional Appears: Non-toxic, No Acute Distress - Head Exam Head Exam: ATRAUMATIC, NORMAL INSPECTION - Respiratory Exam Respiratory Exam: NORMAL BREATHING PATTERN. absent: Respiratory Distress - Cardiovascular Exam Cardiovascular Exam: +S1, +S2 - GI/Abdominal Exam GI & Abdominal Exam: Distended (improved), Soft, Tenderness (mild). absent: Firm, Guarding, Rigid, Rebound - Neurological Exam Neurological Exam: Alert, Awake, Oriented x3 - Psychiatric Exam Psychiatric exam: Normal Affect, Normal Mood - Skin Skin Exam: Dry, Normal Color, Warm Assessment and Plan - Assessment and Plan (Free Text) Assessment: 46yo F with PMHx of etoh abuse and recent cholecystectomy 4 days ago who presented with diffuse abdominal pain that radiates to her back and was found to have pancreatitis and leukocytosis. - Afebrile, VSS - Leukocytosis improving, WBC 17.2 today, was 21.3 yesterday - Blood cx negative @ 24 hours, procal WNL - Hypokalemia 3.1 - being replaced by medicine team - Hepatitis panel negative on previous admission - Lipase improved to 458 today, down from 1,177 yesterday - HIDA: negative for bile leak - CT Abd Pelvis: mild pancreatitis, moderate fatty liver infiltration, distended cecum but no evidence of large or small bowel obstruction - IV Abx - Continue NPO for today, will possibly advance diet tomorrow - IV Fluids - Pain control PRN - Discussed plan with Dr. Irma Hines PGY-3 <Zoran Thao V - Last Filed: 02/11/17 23:50> Objective - Vital Signs/Intake and Output Vital Signs (last 24 hours): Temp Pulse Resp BP Pulse Ox 98.5 F 74 18 122/85 98 02/11/17 16:00 02/11/17 16:00 02/11/17 16:00 02/11/17 16:00 02/11/17 16:00 Intake and Output: 02/11/17 02/12/17 18:59 06:59 Intake Total 0 Balance 0 - Medications Medications: Current Medications Famotidine (Pepcid) 20 mg IVP DAILY [facility] Last Admin: 02/11/17 09:34 Dose: 20 mg Sodium Chloride (Sodium Chloride 0.9%) 1,000 mls @ 200 mls/hr IV .Q5H [facility] Last Admin: 02/10/17 18:46 Dose: 200 mls/hr Ondansetron HCl (Zofran Inj) 4 mg IVP Q6H PRN PRN Reason: Nausea/Vomiting Tramadol HCl (Ultram) 50 mg PO Q6H PRN PRN Reason: Pain, moderate (4-7) Last Admin: 02/11/17 20:03 Dose: 50 mg - Labs Labs: 02/11/17 06:41 02/11/17 06:41 PT 13.3 Seconds (9.9-11.8) H 02/10/17 07:40 INR 1.23 (0.93-1.08) H 02/10/17 07:40 APTT 26.1 Seconds (23.7-30.8) 02/10/17 07:40 Attending/Attestation - Attestation I have personally seen and examined this patient.: Yes I have fully participated in the care of the patient.: Yes I have reviewed all pertinent clinical information, including history, physical exam and plan: Yes Notes (Text): This is an addendum to GI progress report dictated by Resident.The patient was seen and examined earlier. Medical records, lab studies, imagings were reviewed. Last 24 hours events reviewed. Agreed with the above treatment plan as outlined in Resident's notes the with the addition of the following 02/11/17 22:50
--- NOTE | 2017-02-11 15:47 | PN ---
DATE: SUBJECTIVE: Seen on the floor. She is feeling a little better today. The CAT scan is reviewed showing mild pancreatitis, there is no leak on HIDA scan. Her white count is down to 17 from 21 yesterday. The AST is down to 62 from 68. The alkaline phosphatase is a little bit lower also. Lipase is down from 1100 to 460. She is still very constipated. At the moment has not had a bowel movement. An enema and oral cathartics are ordered. Encouraged diet. We discussed with Dr. Solis about discharging her. Thaddeus Arora MD
[2017-02-12 06:48] LABS: BASO # 0.05 K/mm3 (0.0-2.0); BASO % 0.2 % (0.0-3.0); EOS # 0.1 (0.0-0.7); EOS % 0.6 % (1.5-5.0); GRAN # 15.84 (1.4-6.5); GRAN % 77.2 % (50.0-68.0); HEMATOCRIT 32.4 % (36.0-48.0); LYMPH # 2.7 (1.2-3.4); LYMPH % 13.3 % (22.0-35.0); MEAN CELL VOLUME 114.5 fl (80.0-105.0); MEAN CORPUSCULAR HEMOGLOBIN 39.2 pg (25.0-35.0); MEAN CORPUSCULAR HGB CONC 34.3 g/dl (31.0-37.0); MONO # 1.8 (0.1-0.6); MONO % 8.7 % (1.0-6.0); RED CELL DISTRIBUTION WIDTH 15.2 % (11.5-14.5); WHITE BLOOD COUNT 20.5 10^3/ul (4.5-11.0)
[2017-02-12 06:51] LABS: ALB/GLOB RATIO 0.8 (1.1-1.8); ALKALINE PHOSPHATASE 187 U/L (38-126); ALT/SGPT 45 U/L (7-56); AST/SGOT 74 U/L (14-36); BILIRUBIN,TOTAL 0.8 mg/dL (0.2-1.3); BLOOD UREA NITROGEN 4 mg/dL (7-21); CARBON DIOXIDE 16 mmol/L (21-33); CHLORIDE 105 mmol/L (95-110); GFR AFRICAN-AMERICAN > 60; GLUCOSE,RANDOM 71 mg/dL (70-110); MAGNESIUM 2.1 mg/dL (1.7-2.2); PHOSPHOROUS 1.8 mg/dL (2.5-4.5); POTASSIUM 3.6 mmol/L (3.6-5.0); SODIUM 135 mmol/L (132-148); TOTAL PROTEIN 6.5 g/dL (5.8-8.3)
--- NOTE | 2017-02-12 08:17 | CP.PCM.PN ---
Subjective - Date & Time of Evaluation Date of Evaluation: 02/12/17 Time of Evaluation: 08:14 - Subjective Subjective: Surgery note for Dr. Arora 46F seen and examined at bedside. Patient resting comfortably in bed. She says her abdominal discomfort has reduced since having a bowel movement yesterday afternoon and this morning. Patient denies fever, chills, nausea, vomiting, and diarrhea. Objective - Vital Signs/Intake and Output Vital Signs (last 24 hours): Temp Pulse Resp BP Pulse Ox 98.5 F 74 18 122/85 98 02/11/17 16:00 02/11/17 16:00 02/11/17 16:00 02/11/17 16:00 02/11/17 16:00 Intake and Output: 02/12/17 02/12/17 06:59 18:59 Intake Total 0 Balance 0 - Medications Medications: Current Medications Famotidine (Pepcid) 20 mg IVP DAILY [facility] Last Admin: 02/11/17 09:34 Dose: 20 mg Sodium Chloride (Sodium Chloride 0.9%) 1,000 mls @ 200 mls/hr IV .Q5H [facility] Last Admin: 02/10/17 18:46 Dose: 200 mls/hr Ondansetron HCl (Zofran Inj) 4 mg IVP Q6H PRN PRN Reason: Nausea/Vomiting Tramadol HCl (Ultram) 50 mg PO Q6H PRN PRN Reason: Pain, moderate (4-7) Last Admin: 02/11/17 20:03 Dose: 50 mg - Labs Labs: 02/12/17 06:31 02/12/17 06:31 PT 13.3 Seconds (9.9-11.8) H 02/10/17 07:40 INR 1.23 (0.93-1.08) H 02/10/17 07:40 APTT 26.1 Seconds (23.7-30.8) 02/10/17 07:40 - Constitutional Appears: Non-toxic, No Acute Distress - Head Exam Head Exam: NORMAL INSPECTION - Eye Exam Eye Exam: EOMI - Respiratory Exam Respiratory Exam: NORMAL BREATHING PATTERN. absent: Accessory Muscle Use, Respiratory Distress - Cardiovascular Exam Cardiovascular Exam: REGULAR RHYTHM. absent: Bradycardia, Tachycardia - GI/Abdominal Exam GI & Abdominal Exam: Soft. absent: Distended, Tenderness Additional comments: Right lateral incision draining serous fluid. Dressing changed. Other three incisions are clean, dry, and intact, without erythema or swelling. - Extremities Exam Extremities Exam: Normal Inspection - Neurological Exam Neurological Exam: Alert, Awake - Psychiatric Exam Psychiatric exam: Normal Affect, Normal Mood - Skin Skin Exam: Dry, Intact, Normal Color, Warm Assessment and Plan - Assessment and Plan (Free Text) Assessment: 46F s/p lap cholecystectomy POD6 (on last admission), presenting with abdominal pain/constipation Plan: * CT (02/10): mild pancreatic inflammation, distended cecum and ascending colon, full with stool * Having BMs - advance to liquid diet * potassium 3.6 (up from 3.1 yesterday) - continue to follow * continue to watch draining incision for changes * further recs per Dr. Ulysses Jones, PGY-1
--- NOTE | 2017-02-12 09:22 | CP.PCM.PN ---
<Rae Hines - Last Filed: 02/12/17 09:27> Subjective - Date & Time of Evaluation Date of Evaluation: 02/12/17 Time of Evaluation: 08:00 - Subjective Subjective: GI PROGRESS NOTE FOR DR. THAO Patient seen and examined at bedside. She reports that she feels better. She had a BM yesterday afternoon and this morning. She still has some pain in her back and a little pain in her epigastric area. She denies nausea or vomiting. Dressing was changed by surgery. Objective - Vital Signs/Intake and Output Vital Signs (last 24 hours): Temp Pulse Resp BP Pulse Ox 98.5 F 74 18 122/85 98 02/11/17 16:00 02/11/17 16:00 02/11/17 16:00 02/11/17 16:00 02/11/17 16:00 Intake and Output: 02/12/17 02/12/17 06:59 18:59 Intake Total 0 Balance 0 - Medications Medications: Current Medications Famotidine (Pepcid) 20 mg IVP DAILY [facility] Last Admin: 02/11/17 09:34 Dose: 20 mg Sodium Chloride (Sodium Chloride 0.9%) 1,000 mls @ 200 mls/hr IV .Q5H [facility] Last Admin: 02/10/17 18:46 Dose: 200 mls/hr Ondansetron HCl (Zofran Inj) 4 mg IVP Q6H PRN PRN Reason: Nausea/Vomiting Tramadol HCl (Ultram) 50 mg PO Q6H PRN PRN Reason: Pain, moderate (4-7) Last Admin: 02/12/17 08:12 Dose: 50 mg - Labs Labs: 02/12/17 06:31 02/12/17 06:31 PT 13.3 Seconds (9.9-11.8) H 02/10/17 07:40 INR 1.23 (0.93-1.08) H 02/10/17 07:40 APTT 26.1 Seconds (23.7-30.8) 02/10/17 07:40 - Constitutional Appears: Non-toxic, No Acute Distress - Head Exam Head Exam: ATRAUMATIC, NORMAL INSPECTION - Eye Exam Eye Exam: EOMI, Normal appearance - Respiratory Exam Respiratory Exam: NORMAL BREATHING PATTERN. absent: Respiratory Distress - Cardiovascular Exam Cardiovascular Exam: +S1, +S2 - GI/Abdominal Exam GI & Abdominal Exam: Soft, Tenderness (very mild tenderness in epigastric). absent: Distended, Firm, Guarding, Rigid - Neurological Exam Neurological Exam: Alert, Awake, Oriented x3 - Psychiatric Exam Psychiatric exam: Normal Affect, Normal Mood - Skin Skin Exam: Dry, Normal Color, Warm Assessment and Plan - Assessment and Plan (Free Text) Assessment: 46yo F with PMHx of etoh abuse and recent cholecystectomy 6 days ago who presented with diffuse abdominal pain that radiates to her back and was found to have pancreatitis and leukocytosis. - Afebrile, VSS - Leukocytosis increased to WBC 20.5 today up from 17.2 yesterday - Blood cx negative @ 48 hours, procal WNL - Hypokalemia improved 3.6 today - CT Abd Pelvis: mild pancreatitis, moderate fatty liver infiltration, distended cecum but no evidence of large or small bowel obstruction - IV Abx - Will try CLD today - IV Fluids - Discussed plan with Dr. Irma Hines PGY-3 <Zoran Thao V - Last Filed: 02/12/17 23:58> Objective - Vital Signs/Intake and Output Vital Signs (last 24 hours): Temp Pulse Resp BP Pulse Ox 98.5 F 54 L 18 136/85 97 02/12/17 17:06 02/12/17 17:06 02/12/17 17:06 02/12/17 17:06 02/12/17 17:06 Intake and Output: 02/12/17 02/13/17 18:59 06:59 Intake Total 0 540 Balance 0 540 - Medications Medications: Current Medications Famotidine (Pepcid) 20 mg PO 1000 [facility] Ondansetron HCl (Zofran Inj) 4 mg IVP Q6H PRN PRN Reason: Nausea/Vomiting Tramadol HCl (Ultram) 50 mg PO Q6H PRN PRN Reason: Pain, moderate (4-7) Last Admin: 02/12/17 23:22 Dose: 50 mg - Labs Labs: 02/12/17 06:31 02/12/17 06:31 PT 13.3 Seconds (9.9-11.8) H 02/10/17 07:40 INR 1.23 (0.93-1.08) H 02/10/17 07:40 APTT 26.1 Seconds (23.7-30.8) 02/10/17 07:40 Attending/Attestation - Attestation I have personally seen and examined this patient.: Yes I have fully participated in the care of the patient.: Yes I have reviewed all pertinent clinical information, including history, physical exam and plan: Yes Notes (Text): This is an addendum to GI progress report dictated by Resident.The patient was seen and examined earlier. Medical records, lab studies, imagings were reviewed. Last 24 hours events reviewed. Agreed with the above treatment plan as outlined in Resident's notes the with the addition of the following 02/12/17 23:58
[2017-02-12] MEDS ORDERED: Potassium Phosphate 3 mmol/ml Inj IV ONE (10:11)
[2017-02-12] MEDS ORDERED: Potassium Phosphate 15 MMOLE in Sodium Chloride 0.9% 250 ML IVPB ONE (10:15)
--- NOTE | 2017-02-12 15:29 | CP.PCM.PN ---
<Terrie Packer - Last Filed: 02/12/17 15:36> Subjective - Date & Time of Evaluation Date of Evaluation: 02/12/17 Time of Evaluation: 07:50 - Subjective Subjective: Hospitalist Service Progress Note: Patient seen and examined at bedside. Per nursing no acute events overnight. Patient is doing well, abdominal pain improving. Reports having two bowel movements since yesterday. Diet to be advanced to clear liquids this am. Ambulating without difficulty. Denies fevers, chills, nausea, vomiting, cp, palpitations, sob, urinary symptoms, diarrhea. Objective - Vital Signs/Intake and Output Vital Signs (last 24 hours): Temp Pulse Resp BP Pulse Ox 98.4 F 74 20 120/80 100 02/12/17 06:00 02/12/17 06:00 02/12/17 06:00 02/12/17 06:00 02/12/17 06:00 Intake and Output: 02/12/17 02/12/17 06:59 18:59 Intake Total 0 0 Balance 0 0 - Medications Medications: Current Medications Famotidine (Pepcid) 20 mg IVP DAILY [facility] Last Admin: 02/12/17 09:22 Dose: 20 mg Potassium Phosphate 15 mmole/ (Sodium Chloride) 255 mls @ 42.5 mls/hr IVPB ONCE ONE Stop: 02/12/17 16:14 Last Admin: 02/12/17 11:36 Dose: 42.5 mls/hr Ondansetron HCl (Zofran Inj) 4 mg IVP Q6H PRN PRN Reason: Nausea/Vomiting Tramadol HCl (Ultram) 50 mg PO Q6H PRN PRN Reason: Pain, moderate (4-7) Last Admin: 02/12/17 08:12 Dose: 50 mg - Labs Labs: 02/12/17 06:31 02/12/17 06:31 PT 13.3 Seconds (9.9-11.8) H 02/10/17 07:40 INR 1.23 (0.93-1.08) H 02/10/17 07:40 APTT 26.1 Seconds (23.7-30.8) 02/10/17 07:40 - Constitutional Appears: Non-toxic, No Acute Distress - Head Exam Head Exam: ATRAUMATIC, NORMAL INSPECTION - Eye Exam Eye Exam: EOMI, Normal appearance Pupil Exam: NORMAL ACCOMODATION - ENT Exam ENT Exam: Mucous Membranes Moist - Neck Exam Neck Exam: Full ROM - Respiratory Exam Respiratory Exam: Clear to Ausculation Bilateral, NORMAL BREATHING PATTERN. absent: Rales, Rhonchi, Wheezes - Cardiovascular Exam Cardiovascular Exam: REGULAR RHYTHM, +S1, +S2 - GI/Abdominal Exam GI & Abdominal Exam: Distended, Soft, Tenderness. absent: Guarding, Rigid Additional comments: R lateral port site dressed with 4x4, changed by surgery Other incisions c/d/i with dermabond - Extremities Exam Extremities Exam: Full ROM, Normal Inspection. absent: Calf Tenderness - Back Exam Back Exam: NORMAL INSPECTION - Neurological Exam Neurological Exam: Alert, Awake, Normal Gait, Oriented x3 - Psychiatric Exam Psychiatric exam: Normal Affect, Normal Mood - Skin Skin Exam: Normal Color, Warm Assessment and Plan - Assessment and Plan (Free Text) Assessment: 46 year old female s/p Lap cholecystectomy POD#6 who recently discharged on 02/07 , presents with abdominal pain associated with nausea/vomiting and abdominal distention. CT abd/pelvis showing dilated cecum, no obstruction visualized Plan: 1. Abdominal pain - likely 2/2 pancreatitis and constipation -VSS, Afebrile -Lipase elevated 1177 on admission, trending down -CT abd/pelvis showing no obstruction, distended cecum, mild pancreatitis -HIDA showing no evidence of bile leak -KUB showing no evidence of acute mechanical obstruction -Diet: clear liquid; diet to be advanced per GI/Surgery recs -Zofran prn nausea -Pain control: Ultram prn -Bowel regimen per GI/surgery recommendations -GI consulted, f/u recommendations -Surgery consulted, f/u recommendations 2. Leukocytosis -CXR showing no active pulmonary disease -WBC up to 20.5, repeat procal ordered -Recommending wound cx -Blood cultures showing no growth x 48 hours -F/U urine cultures 3. Transaminitis -Liver function improving since previous admission -Continue to monitor -Avoid hepatotoxic medications 4. Hypokalemia/Hypophosphatemia -Potassium 3.6 -Phosphate 1.8, will replete with Kphos -Continue to monitor 5. Tobacco abuse -Encourage tobacco cessation 6. GI/DVT ppx -Pepcid 20mg PO -SCDs <Domenica Brown B - Last Filed: 02/15/17 16:42> Objective - Vital Signs/Intake and Output Vital Signs (last 24 hours): Temp Pulse Resp BP Pulse Ox 97.8 F 76 20 132/90 99 02/15/17 06:00 02/15/17 06:00 02/15/17 06:00 02/15/17 06:00 02/15/17 06:00 Intake and Output: 02/15/17 02/15/17 06:59 18:59 Intake Total 960 480 Output Total 0 Balance 960 480 - Labs Labs: 02/15/17 06:00 02/15/17 06:00 PT 13.3 Seconds (9.9-11.8) H 02/10/17 07:40 INR 1.23 (0.93-1.08) H 02/10/17 07:40 APTT 26.1 Seconds (23.7-30.8) 02/10/17 07:40 Attending/Attestation - Attestation I have personally seen and examined this patient.: Yes I have fully participated in the care of the patient.: Yes I have reviewed all pertinent clinical information, including history, physical exam and plan: Yes Notes (Text): I have seen and examined the patient at bedside. Agree with the note above with the following additions/ exceptions: Briefly this is 46 year old female with recent lap cholecystectomy and IOP revealed no filling defect came with N,V, abdominal pain and distention and found to have pancreatitis of unknown cause. HIDA showed no biliary leak. There is no nausea or vomiting. Patients diet will be advanced to clears. Continue IVF, analgesics and antiemetics. Bowel regimen as per GI / Surgery. Will follow up on cultures and hold off on antibiotics at this time. Discussed with GI and surgery team. Upon discharge patient will follow up with Dr Leydi Patel. Dr Domenica Brown
[2017-02-13 06:34] LABS: BASO # 0.08 K/mm3 (0.0-2.0); BASO % 0.5 % (0.0-3.0); EOS # 0.2 (0.0-0.7); EOS % 0.9 % (1.5-5.0); GRAN # 13.01 (1.4-6.5); GRAN % 73.8 % (50.0-68.0); HEMATOCRIT 32.1 % (36.0-48.0); LYMPH # 2.8 (1.2-3.4); LYMPH % 16.1 % (22.0-35.0); MEAN CELL VOLUME 112.6 fl (80.0-105.0); MEAN CORPUSCULAR HGB CONC 35.5 g/dl (31.0-37.0); MEAN PLATELET VOLUME 10.2 fl (7.0-11.0); MONO # 1.5 (0.1-0.6); MONO % 8.7 % (1.0-6.0); PLATELET COUNT 239 10^3/uL (120.0-450.0); RED CELL DISTRIBUTION WIDTH 15.1 % (11.5-14.5); WHITE BLOOD COUNT 17.6 10^3/ul (4.5-11.0)
[2017-02-13 07:07] LABS: ALB/GLOB RATIO 0.8 (1.1-1.8); ALKALINE PHOSPHATASE 196 U/L (38-126); ALT/SGPT 45 U/L (7-56); AST/SGOT 81 U/L (14-36); BILIRUBIN,TOTAL 0.7 mg/dL (0.2-1.3); BLOOD UREA NITROGEN 3 mg/dL (7-21); CARBON DIOXIDE 19 mmol/L (21-33); CHLORIDE 104 mmol/L (98-107); GFR AFRICAN-AMERICAN > 60; GLUCOSE,RANDOM 90 mg/dL (70-110); PHOSPHOROUS 2.2 mg/dL (2.5-4.5); SODIUM 136 mmol/L (132-148); TOTAL PROTEIN 6.6 g/dL (5.8-8.3)
[2017-02-13 07:10] LABS: POTASSIUM 2.9 mmol/L (3.6-5.0)
[2017-02-13] MEDS ORDERED: Potassium Chloride 40 mEq/30 ml LIQ UD PO ONE (07:53)
--- NOTE | 2017-02-13 11:27 | CP.PCM.PN ---
Subjective - Date & Time of Evaluation Date of Evaluation: 02/13/17 Time of Evaluation: 11:21 - Subjective Subjective: Surgery note for Dr. Arora. Patient seen and examined at bedside. Patient is doing well today with no new complaints at this time. Patient is feeling a little bloated today which she attributes to all the liquids she has been drinking. Patient says she is also having some mild mid back pain that she has been using a heating pad for. Patient says she had 2 BMs yesterday but has not had one today. Patient says she is urinating without discomfort or difficulty. She says she has been getting out of bed walking around a few times per day. Patient is still noticing some drainage from the right lateral incision site. Patient denies fever, chills, nausea, vomiting, diarrhea, chest pain, SOB, calf tenderness and leg swelling. Objective - Vital Signs/Intake and Output Vital Signs (last 24 hours): Temp Pulse Resp BP Pulse Ox 98.5 F 71 18 141/94 H 99 02/13/17 09:00 02/13/17 09:00 02/13/17 09:00 02/13/17 09:00 02/13/17 09:00 Intake and Output: 02/13/17 02/13/17 06:59 18:59 Intake Total 540 Balance 540 - Medications Medications: Current Medications Famotidine (Pepcid) 20 mg PO 1000 [facility] Ondansetron HCl (Zofran Inj) 4 mg IVP Q6H PRN PRN Reason: Nausea/Vomiting Tramadol HCl (Ultram) 50 mg PO Q6H PRN PRN Reason: Pain, moderate (4-7) Last Admin: 02/12/17 23:22 Dose: 50 mg - Labs Labs: 02/13/17 06:10 02/13/17 06:10 PT 13.3 Seconds (9.9-11.8) H 02/10/17 07:40 INR 1.23 (0.93-1.08) H 02/10/17 07:40 APTT 26.1 Seconds (23.7-30.8) 02/10/17 07:40 - Constitutional Appears: Non-toxic, No Acute Distress - Head Exam Head Exam: NORMAL INSPECTION - Eye Exam Eye Exam: EOMI - ENT Exam ENT Exam: Mucous Membranes Moist - Respiratory Exam Respiratory Exam: NORMAL BREATHING PATTERN. absent: Accessory Muscle Use, Respiratory Distress - Cardiovascular Exam Cardiovascular Exam: REGULAR RHYTHM. absent: Bradycardia, Tachycardia - GI/Abdominal Exam GI & Abdominal Exam: Distended, Soft, Tenderness (mild RLQ TTP). absent: Guarding, Rebound Additional comments: Serous fluid draining from right lateral incision. Dressing changed. Other three incisions are clean, dry, and intact, without erythema or swelling. - Extremities Exam Extremities Exam: Normal Inspection. absent: Calf Tenderness, Pedal Edema, Tenderness - Back Exam Back Exam: paraspinal tenderness (mid to lower thoracic spine ). absent: vertebral tenderness - Neurological Exam Neurological Exam: Alert, Awake - Psychiatric Exam Psychiatric exam: Normal Affect, Normal Mood - Skin Skin Exam: Dry, Intact, Normal Color, Warm Assessment and Plan - Assessment and Plan (Free Text) Assessment: 46F s/p lap cholecystectomy POD#7 (on last admission), presenting with abdominal pain/constipation that was found to be pancreatitis Plan: * CT (02/10): mild pancreatic inflammation, distended cecum and ascending colon, full with stool * GI consulted (Dr. Solis) - recs appreciated * continue CLD * potassium 2.9 today - was replaced, continue to follow * continue to watch draining incision for changes * Blood cultures negative x3days * further recs per Dr. Ulysses Jones, PGY-1
[2017-02-13 11:35] LABS: NEUTROPHIL 70 % (50.0-70.0)
[2017-02-13 11:36] LABS: BAND 2 % (0-2); EOSINOPHIL 2 % (0.0-3.0); METAMYELOCYTE 3 %; MYELOCYTE 3 %; PROMYELOCYTE 2 %
[2017-02-13 11:37] LABS: PLATELET ESTIMATE NORMAL (NORMAL)
--- NOTE | 2017-02-13 15:59 | CP.PCM.PN ---
<Marely Saucedo - Last Filed: 02/13/17 16:00> Subjective - Date & Time of Evaluation Date of Evaluation: 02/13/17 Time of Evaluation: 09:55 - Subjective Subjective: Seen and examined at the bedside earlier today, chart was reviewed. Patient abdominal pain has improved and denies nausea vomiting, tolerating clear liquids. Objective - Vital Signs/Intake and Output Vital Signs (last 24 hours): Temp Pulse Resp BP Pulse Ox 98.5 F 71 18 141/94 H 99 02/13/17 09:00 02/13/17 09:00 02/13/17 09:00 02/13/17 09:00 02/13/17 09:00 Intake and Output: 02/13/17 02/13/17 06:59 18:59 Intake Total 540 Balance 540 - Medications Medications: Current Medications Famotidine (Pepcid) 20 mg PO 1000 [facility] Last Admin: 02/13/17 09:28 Dose: 20 mg Ondansetron HCl (Zofran Inj) 4 mg IVP Q6H PRN PRN Reason: Nausea/Vomiting Tramadol HCl (Ultram) 50 mg PO Q6H PRN PRN Reason: Pain, moderate (4-7) Last Admin: 02/12/17 23:22 Dose: 50 mg - Labs Labs: 02/13/17 06:10 02/13/17 06:10 PT 13.3 Seconds (9.9-11.8) H 02/10/17 07:40 INR 1.23 (0.93-1.08) H 02/10/17 07:40 APTT 26.1 Seconds (23.7-30.8) 02/10/17 07:40 - Constitutional Appears: No Acute Distress - Head Exam Head Exam: NORMOCEPHALIC - Eye Exam Eye Exam: Normal appearance. absent: Scleral icterus - ENT Exam ENT Exam: Mucous Membranes Moist - Neck Exam Neck Exam: Normal Inspection - Respiratory Exam Respiratory Exam: NORMAL BREATHING PATTERN. absent: Respiratory Distress - Cardiovascular Exam Cardiovascular Exam: +S1, +S2 - GI/Abdominal Exam GI & Abdominal Exam: Soft, Normal Bowel Sounds. absent: Guarding, Tenderness, Rebound - Extremities Exam Extremities Exam: Normal Capillary Refill. absent: Calf Tenderness, Pedal Edema - Neurological Exam Neurological Exam: Alert, Awake, Oriented x3 Assessment and Plan - Assessment and Plan (Free Text) Assessment: Assessment: Status post recent cholecystectomy Abdominal pain likely secondary to pancreatitis, of uncertain etiology Patient history of EtOH, denies any recent usage Leukocytosis, blood cultures negative Elevated liver enzymes Hypokalemia Plan: Continue clear liquid diet, would recommend not to advance today consider in a.m. Continue IV hydration Continue IV antibiotics Trend LFTs on Pepcid DVT prophylaxsis cmp,cbc,lipase in am Plan discussed with surgical and medical team. Seen and discussed w/ Dr. Solis. <Zoran Solis V - Last Filed: 02/13/17 23:53> Objective - Vital Signs/Intake and Output Vital Signs (last 24 hours): Temp Pulse Resp BP Pulse Ox 98 F 76 20 134/91 H 98 02/13/17 17:45 02/13/17 17:45 02/13/17 17:45 02/13/17 17:45 02/13/17 17:45 Intake and Output: 02/13/17 02/14/17 18:59 06:59 Intake Total 780 Balance 780 - Medications Medications: Current Medications Famotidine (Pepcid) 20 mg PO 1000 [facility] Last Admin: 02/13/17 09:28 Dose: 20 mg Ondansetron HCl (Zofran Inj) 4 mg IVP Q6H PRN PRN Reason: Nausea/Vomiting Tramadol HCl (Ultram) 50 mg PO Q6H PRN PRN Reason: Pain, moderate (4-7) Last Admin: 02/12/17 23:22 Dose: 50 mg - Labs Labs: 02/13/17 06:10 02/13/17 06:10 PT 13.3 Seconds (9.9-11.8) H 02/10/17 07:40 INR 1.23 (0.93-1.08) H 02/10/17 07:40 APTT 26.1 Seconds (23.7-30.8) 02/10/17 07:40 Attending/Attestation - Attestation I have personally seen and examined this patient.: Yes I have fully participated in the care of the patient.: Yes I have reviewed all pertinent clinical information, including history, physical exam and plan: Yes
[2017-02-13 17:46] VITALS: RESP 20
[2017-02-14 07:18] LABS: BASO # 0.08 K/mm3 (0.0-2.0); BASO % 0.5 % (0.0-3.0); EOS # 0.1 (0.0-0.7); EOS % 0.9 % (1.5-5.0); GRAN # 10.81 (1.4-6.5); GRAN % 73.5 % (50.0-68.0); HEMATOCRIT 29.4 % (36.0-48.0); LYMPH # 2.2 (1.2-3.4); LYMPH % 14.9 % (22.0-35.0); MEAN CELL VOLUME 110.9 fl (80.0-105.0); MEAN CORPUSCULAR HEMOGLOBIN 39.2 pg (25.0-35.0); MEAN CORPUSCULAR HGB CONC 35.4 g/dl (31.0-37.0); MEAN PLATELET VOLUME 9.8 fl (7.0-11.0); MONO # 1.5 (0.1-0.6); MONO % 10.2 % (1.0-6.0); RED CELL DISTRIBUTION WIDTH 14.9 % (11.5-14.5); WHITE BLOOD COUNT 14.7 10^3/ul (4.5-11.0)
[2017-02-14 07:50] LABS: ALB/GLOB RATIO 0.8 (1.1-1.8); ALKALINE PHOSPHATASE 170 U/L (38-126); ALT/SGPT 50 U/L (7-56); AST/SGOT 82 U/L (14-36); BILIRUBIN,TOTAL 0.8 mg/dL (0.2-1.3); BLOOD UREA NITROGEN 2 mg/dL (7-21); CALCIUM 7.9 mg/dL (8.4-10.5); CARBON DIOXIDE 21 mmol/L (21-33); CHLORIDE 102 mmol/L (98-107); GFR AFRICAN-AMERICAN > 60; GLUCOSE,RANDOM 97 mg/dL (70-110); LIPASE 331 U/L (23-300); MAGNESIUM 1.8 mg/dL (1.7-2.2); SODIUM 135 mmol/L (132-148); TOTAL PROTEIN 6.2 g/dL (5.8-8.3)
[2017-02-14 07:55] LABS: POTASSIUM 2.8 mmol/L (3.6-5.0)
--- NOTE | 2017-02-14 08:39 | CP.PCM.PN ---
Subjective - Date & Time of Evaluation Date of Evaluation: 02/14/17 Time of Evaluation: 08:35 - Subjective Subjective: Progress note for Dr. Arora Patient seen and examined at bedside. Patient doing well with no new complaints at this time. Patient said she had some mild abdominal pain last night after drinking some water but has otherwise been feeling well. She says the drainage coming from her incision has significantly reduced. Patient is tolerating the liquid diet. She says she did not have a BM yesterday but was passing flatus . She denies fever, chills, LE pain/swelling, CP, and SOB. Objective - Vital Signs/Intake and Output Vital Signs (last 24 hours): Temp Pulse Resp BP Pulse Ox 98 F 76 20 134/91 H 98 02/13/17 17:45 02/13/17 17:45 02/13/17 17:45 02/13/17 17:45 02/13/17 17:45 Intake and Output: 02/14/17 02/14/17 06:59 18:59 Intake Total 780 Balance 780 - Medications Medications: Current Medications Famotidine (Pepcid) 20 mg PO 1000 [facility] Last Admin: 02/13/17 09:28 Dose: 20 mg Potassium Chloride (Potassium Chloride 20 Meq/100 Ml) 20 meq in 100 mls @ 50 mls/hr IVPB Q2H [facility] Stop: 02/14/17 11:59 Ondansetron HCl (Zofran Inj) 4 mg IVP Q6H PRN PRN Reason: Nausea/Vomiting Tramadol HCl (Ultram) 50 mg PO Q6H PRN PRN Reason: Pain, moderate (4-7) Last Admin: 02/14/17 00:17 Dose: 50 mg - Labs Labs: 02/14/17 06:30 02/14/17 06:30 PT 13.3 Seconds (9.9-11.8) H 02/10/17 07:40 INR 1.23 (0.93-1.08) H 02/10/17 07:40 APTT 26.1 Seconds (23.7-30.8) 02/10/17 07:40 - Constitutional Appears: Non-toxic, No Acute Distress - Head Exam Head Exam: NORMAL INSPECTION - Eye Exam Eye Exam: EOMI - ENT Exam ENT Exam: Mucous Membranes Moist - Respiratory Exam Respiratory Exam: NORMAL BREATHING PATTERN. absent: Accessory Muscle Use, Respiratory Distress - Cardiovascular Exam Cardiovascular Exam: REGULAR RHYTHM. absent: Bradycardia, Tachycardia - GI/Abdominal Exam GI & Abdominal Exam: Distended, Soft, Tenderness (mildly TTP near right lateral incision site). absent: Rigid Additional comments: right lateral incision draining minimal serous fluid - Extremities Exam Extremities Exam: Normal Inspection. absent: Pedal Edema, Tenderness - Neurological Exam Neurological Exam: Alert, Awake - Psychiatric Exam Psychiatric exam: Normal Affect, Normal Mood - Skin Skin Exam: Dry, Intact, Normal Color, Warm Assessment and Plan - Assessment and Plan (Free Text) Assessment: 46F s/p lap cholecystectomy POD#8 (on last admission), presenting with abdominal pain/constipation that was found to be pancreatitis Plan: * CT (02/10): mild pancreatic inflammation, distended cecum and ascending colon, full with stool * GI consulted (Dr. Solis) - recs appreciated * advanced to low fat soft diet * potassium 2.8 today - was replaced, continue to follow * incisional drainage improving, continue to watch for changes * Blood cultures negative x4days * further recs per Dr. Ulysses Jones, PGY-1
[2017-02-14] MEDS: Potassium Chloride 20 mEq ER Tab PO ONE ×2 (08:54→21:22)
[2017-02-14] MEDS ORDERED: POLYETHYLENE GLYCOL 3350 17 GM/Dose PACKET PO ONE (12:37)
--- NOTE | 2017-02-14 14:05 | CP.PCM.PN ---
<Marely Saucedo - Last Filed: 02/14/17 14:05> Subjective - Date & Time of Evaluation Date of Evaluation: 02/14/17 Time of Evaluation: 10:45 - Subjective Subjective: Seen and examined at the bedside earlier today, the chart was reviewed. No acute overnight events reported. Patient denies nausea, vomiting, fever or chills. Her diet was advanced this morning and tolerated some solids. No postprandial nausea or pain. The patient's last bowel movement was 2 days ago. No reports of overt GI bleed. Objective - Vital Signs/Intake and Output Vital Signs (last 24 hours): Temp Pulse Resp BP Pulse Ox 98 F 76 20 134/91 H 98 02/13/17 17:45 02/13/17 17:45 02/13/17 17:45 02/13/17 17:45 02/13/17 17:45 Intake and Output: 02/14/17 02/14/17 06:59 18:59 Intake Total 780 Balance 780 - Medications Medications: Current Medications Famotidine (Pepcid) 20 mg PO 1000 SASHA Last Admin: 02/14/17 09:01 Dose: 20 mg Ondansetron HCl (Zofran Inj) 4 mg IVP Q6H PRN PRN Reason: Nausea/Vomiting Tramadol HCl (Ultram) 50 mg PO Q6H PRN PRN Reason: Pain, moderate (4-7) Last Admin: 02/14/17 00:17 Dose: 50 mg - Labs Labs: 02/14/17 06:30 02/14/17 06:30 PT 13.3 Seconds (9.9-11.8) H 02/10/17 07:40 INR 1.23 (0.93-1.08) H 02/10/17 07:40 APTT 26.1 Seconds (23.7-30.8) 02/10/17 07:40 - Constitutional Appears: No Acute Distress - Eye Exam Eye Exam: Normal appearance. absent: Scleral icterus - ENT Exam ENT Exam: Mucous Membranes Moist - Neck Exam Neck Exam: Normal Inspection - Respiratory Exam Respiratory Exam: Clear to Ausculation Bilateral, NORMAL BREATHING PATTERN. absent: Respiratory Distress - Cardiovascular Exam Cardiovascular Exam: +S1, +S2 - GI/Abdominal Exam GI & Abdominal Exam: Soft, Tenderness (minimal). absent: Guarding, Rebound Additional comments: laparoscopic sites are dry and intact, right upper quadrant dressing is dry and intact, patient repeats no recent drainage. - Extremities Exam Extremities Exam: Normal Capillary Refill. absent: Calf Tenderness, Pedal Edema - Neurological Exam Neurological Exam: Alert, Awake, Oriented x3 - Skin Skin Exam: Dry, Warm Assessment and Plan - Assessment and Plan (Free Text) Assessment: Assessment: Status post recent cholecystectomy Improved Abdominal pain likely secondary to pancreatitis, of uncertain etiology Patient history of EtOH, denies any recent usage Leukocytosis, blood cultures negative Elevated liver enzymes Hypokalemia Plan: advanced to soft low fat Continue IV hydration Continue IV antibiotics Trend LFTs on Pepcid DVT prophylaxsis give 1 dose of miralax monitor electrolytes and replete as tolerated Seen and discussed w/ Dr. Solis. <Zoran Solis V - Last Filed: 02/14/17 23:50> Objective - Vital Signs/Intake and Output Vital Signs (last 24 hours): Temp Pulse Resp BP Pulse Ox 98.7 F 80 20 121/82 99 02/14/17 17:33 02/14/17 17:33 02/14/17 17:33 02/14/17 17:33 02/14/17 17:33 Intake and Output: 02/14/17 02/15/17 18:59 06:59 Intake Total 960 Balance 960 - Medications Medications: Current Medications Famotidine (Pepcid) 20 mg PO 1000 SASHA Last Admin: 02/14/17 09:01 Dose: 20 mg Ondansetron HCl (Zofran Inj) 4 mg IVP Q6H PRN PRN Reason: Nausea/Vomiting Tramadol HCl (Ultram) 50 mg PO Q6H PRN PRN Reason: Pain, moderate (4-7) Last Admin: 02/14/17 21:45 Dose: 50 mg - Labs Labs: 02/14/17 06:30 02/14/17 16:00 PT 13.3 Seconds (9.9-11.8) H 02/10/17 07:40 INR 1.23 (0.93-1.08) H 02/10/17 07:40 APTT 26.1 Seconds (23.7-30.8) 02/10/17 07:40
--- NOTE | 2017-02-14 15:44 | CP.PCM.PN ---
<Terrie Packer - Last Filed: 02/14/17 15:49> Subjective - Date & Time of Evaluation Date of Evaluation: 02/14/17 Time of Evaluation: 07:00 - Subjective Subjective: Hospitalist Service Progress Note: Patient seen and examined at bedside. Per nursing, no acute events overnight. Patient is doing well, states still having abdominal pain but improved since admission. Tolerating diet and ambulating. Denies headaches, dizziness, cp, palpitations, sob, urinary symptoms. Objective - Vital Signs/Intake and Output Vital Signs (last 24 hours): Temp Pulse Resp BP Pulse Ox 98 F 76 20 134/91 H 98 02/13/17 17:45 02/13/17 17:45 02/13/17 17:45 02/13/17 17:45 02/13/17 17:45 Intake and Output: 02/14/17 02/14/17 06:59 18:59 Intake Total 780 Balance 780 - Medications Medications: Current Medications Famotidine (Pepcid) 20 mg PO 1000 SASHA Last Admin: 02/14/17 09:01 Dose: 20 mg Ondansetron HCl (Zofran Inj) 4 mg IVP Q6H PRN PRN Reason: Nausea/Vomiting Tramadol HCl (Ultram) 50 mg PO Q6H PRN PRN Reason: Pain, moderate (4-7) Last Admin: 02/14/17 00:17 Dose: 50 mg - Labs Labs: 02/14/17 06:30 02/14/17 06:30 PT 13.3 Seconds (9.9-11.8) H 02/10/17 07:40 INR 1.23 (0.93-1.08) H 02/10/17 07:40 APTT 26.1 Seconds (23.7-30.8) 02/10/17 07:40 - Constitutional Appears: Non-toxic, No Acute Distress - Head Exam Head Exam: ATRAUMATIC, NORMAL INSPECTION - Eye Exam Eye Exam: EOMI, Normal appearance Pupil Exam: PERRL - ENT Exam ENT Exam: Mucous Membranes Moist - Neck Exam Neck Exam: Full ROM - Respiratory Exam Respiratory Exam: Clear to Ausculation Bilateral, NORMAL BREATHING PATTERN. absent: Rales, Rhonchi, Wheezes - Cardiovascular Exam Cardiovascular Exam: REGULAR RHYTHM, +S1, +S2 - GI/Abdominal Exam GI & Abdominal Exam: Soft, Normal Bowel Sounds. absent: Distended, Guarding, Rigid, Tenderness Additional comments: incisions c/d/i with dermabond 4x4 on R lateral port site - Extremities Exam Extremities Exam: Calf Tenderness, Full ROM, Normal Inspection - Back Exam Back Exam: NORMAL INSPECTION - Neurological Exam Neurological Exam: Alert, Awake, Normal Gait, Oriented x3 - Psychiatric Exam Psychiatric exam: Normal Affect, Normal Mood - Skin Skin Exam: Normal Color, Warm Assessment and Plan - Assessment and Plan (Free Text) Assessment: 46 year old female s/p Lap cholecystectomy POD#6 who recently discharged on 02/07 , presents with abdominal pain associated with nausea/vomiting and abdominal distention. CT abd/pelvis showing dilated cecum, no obstruction visualized Plan: 1. Abdominal pain - likely 2/2 pancreatitis and constipation -VSS, Afebrile -Lipase elevated 1177 on admission, trending down -CT abd/pelvis showing no obstruction, distended cecum, mild pancreatitis -HIDA showing no evidence of bile leak -KUB showing no evidence of acute mechanical obstruction -Diet: low fat diet; diet to be advanced per GI/Surgery recs -Zofran prn nausea -Pain control: Ultram prn -Bowel regimen per GI/surgery recommendations -GI consulted, f/u recommendations -Surgery consulted, f/u recommendations 2. Leukocytosis -CXR showing no active pulmonary disease -WBC down to 14.7 today off antibiotics -Blood cultures showing no growth 3. Transaminitis -Liver function stable -Continue to monitor -Avoid hepatotoxic medications 4. Hypokalemia/Hypophosphatemia -Potassium 2.8 -Will replete with K riders and PO potassium -F/U repeat K+ level -Continue to monitor 5. Tobacco abuse -Encourage tobacco cessation 6. GI/DVT ppx -Pepcid 20mg PO -SCDs <Domenica Brown B - Last Filed: 02/15/17 16:56> Objective - Vital Signs/Intake and Output Vital Signs (last 24 hours): Temp Pulse Resp BP Pulse Ox 97.8 F 76 20 132/90 99 02/15/17 06:00 02/15/17 06:00 02/15/17 06:00 02/15/17 06:00 02/15/17 06:00 Intake and Output: 02/15/17 02/15/17 06:59 18:59 Intake Total 960 480 Output Total 0 Balance 960 480 - Labs Labs: 02/15/17 06:00 02/15/17 06:00 PT 13.3 Seconds (9.9-11.8) H 02/10/17 07:40 INR 1.23 (0.93-1.08) H 02/10/17 07:40 APTT 26.1 Seconds (23.7-30.8) 02/10/17 07:40 Attending/Attestation - Attestation I have personally seen and examined this patient.: Yes I have fully participated in the care of the patient.: Yes I have reviewed all pertinent clinical information, including history, physical exam and plan: Yes Notes (Text): I have seen and examined the patient at bedside. Agree with the note above with the following additions/ exceptions: Briefly this is 46 year old female with recent lap cholecystectomy and IOP revealed no filling defect came with N,V, abdominal pain and distention and found to have pancreatitis of unknown cause. HIDA showed no biliary leak. There is no nausea or vomiting. Diet was advanced to solids today and we will monitor patient very closely if she is able to tolerate. As per GI, patient should stay for atleast one more day in the hospital so that she can be monitored closely. Continue IVF, analgesics and antiemetics. Blood cultures are negative. She is not on antibiotics. Leukocytosis is improving. There is no evidence of sepsis or Sirs at this time. Discussed with GI and surgery team. Upon discharge patient will follow up with Dr Leydi Patel. Dr Domenica Brown
--- NOTE | 2017-02-14 15:52 | CP.PCM.PN ---
<Terrie Packer - Last Filed: 02/14/17 15:54> Subjective - Date & Time of Evaluation Date of Evaluation: 02/13/17 Time of Evaluation: 07:35 - Subjective Subjective: Hospitalist Service Progress Note: Patient seen and examined at bedside. Per nursing no acute events overnight. Patient is doing well pain is improved. Tolerating clear liquid diet. Denies headaches, dizziness, cp, palpitations, urinary symptoms. Objective - Vital Signs/Intake and Output Vital Signs (last 24 hours): Temp Pulse Resp BP Pulse Ox 98 F 76 20 134/91 H 98 02/13/17 17:45 02/13/17 17:45 02/13/17 17:45 02/13/17 17:45 02/13/17 17:45 Intake and Output: 02/14/17 02/14/17 06:59 18:59 Intake Total 780 Balance 780 - Medications Medications: Current Medications Famotidine (Pepcid) 20 mg PO 1000 SASHA Last Admin: 02/14/17 09:01 Dose: 20 mg Ondansetron HCl (Zofran Inj) 4 mg IVP Q6H PRN PRN Reason: Nausea/Vomiting Tramadol HCl (Ultram) 50 mg PO Q6H PRN PRN Reason: Pain, moderate (4-7) Last Admin: 02/14/17 00:17 Dose: 50 mg - Labs Labs: 02/14/17 06:30 02/14/17 06:30 PT 13.3 Seconds (9.9-11.8) H 02/10/17 07:40 INR 1.23 (0.93-1.08) H 02/10/17 07:40 APTT 26.1 Seconds (23.7-30.8) 02/10/17 07:40 - Constitutional Appears: Non-toxic, No Acute Distress - Head Exam Head Exam: ATRAUMATIC, NORMAL INSPECTION - Eye Exam Eye Exam: EOMI, Normal appearance Pupil Exam: NORMAL ACCOMODATION - ENT Exam ENT Exam: Mucous Membranes Moist - Neck Exam Neck Exam: Full ROM - Respiratory Exam Respiratory Exam: Clear to Ausculation Bilateral, NORMAL BREATHING PATTERN. absent: Rales, Rhonchi, Wheezes - Cardiovascular Exam Cardiovascular Exam: REGULAR RHYTHM, +S1, +S2 - GI/Abdominal Exam GI & Abdominal Exam: Soft. absent: Distended, Guarding, Rigid, Tenderness Additional comments: Incisions c/d/i with dermabond R lateral port site with 4x4 dressing - Extremities Exam Extremities Exam: Full ROM, Normal Inspection - Back Exam Back Exam: NORMAL INSPECTION - Neurological Exam Neurological Exam: Alert, Awake, Normal Gait, Oriented x3 - Psychiatric Exam Psychiatric exam: Normal Affect, Normal Mood - Skin Skin Exam: Dry, Normal Color, Warm Assessment and Plan - Assessment and Plan (Free Text) Assessment: 46 year old female s/p Lap cholecystectomy POD#6 who recently discharged on 02/07 , presents with abdominal pain associated with nausea/vomiting and abdominal distention. CT abd/pelvis showing dilated cecum, no obstruction visualized Plan: 1. Abdominal pain - likely 2/2 pancreatitis and constipation -VSS, Afebrile -Lipase elevated 1177 on admission, trending down -CT abd/pelvis showing no obstruction, distended cecum, mild pancreatitis -HIDA showing no evidence of bile leak -KUB showing no evidence of acute mechanical obstruction -Diet: clear liquid; diet to be advanced per GI/Surgery recs -Zofran prn nausea -Pain control: Ultram prn -Bowel regimen per GI/surgery recommendations -GI consulted, f/u recommendations -Surgery consulted, f/u recommendations 2. Leukocytosis -CXR showing no active pulmonary disease -WBC up to 17.6 -Recommending wound cx -Blood cultures showing no growth x 48 hours -F/U urine cultures 3. Transaminitis -Liver function improving since previous admission -Continue to monitor -Avoid hepatotoxic medications 4. Hypokalemia/Hypophosphatemia -Potassium 2.9 -Repleted with Kcl PO -Continue to monitor 5. Tobacco abuse -Encourage tobacco cessation 6. GI/DVT ppx -Pepcid 20mg PO -SCDs <Domenica Brown B - Last Filed: 02/15/17 16:54> Objective - Vital Signs/Intake and Output Vital Signs (last 24 hours): Temp Pulse Resp BP Pulse Ox 97.8 F 76 20 132/90 99 02/15/17 06:00 02/15/17 06:00 02/15/17 06:00 02/15/17 06:00 02/15/17 06:00 Intake and Output: 02/15/17 02/15/17 06:59 18:59 Intake Total 960 480 Output Total 0 Balance 960 480 - Labs Labs: 02/15/17 06:00 02/15/17 06:00 PT 13.3 Seconds (9.9-11.8) H 02/10/17 07:40 INR 1.23 (0.93-1.08) H 02/10/17 07:40 APTT 26.1 Seconds (23.7-30.8) 02/10/17 07:40 Attending/Attestation - Attestation I have personally seen and examined this patient.: Yes I have fully participated in the care of the patient.: Yes I have reviewed all pertinent clinical information, including history, physical exam and plan: Yes Notes (Text): I have seen and examined the patient at bedside. Agree with the note above with the following additions/ exceptions: Briefly this is 46 year old female with recent lap cholecystectomy and IOP revealed no filling defect came with N,V, abdominal pain and distention and found to have pancreatitis of unknown cause. HIDA showed no biliary leak. There is no nausea or vomiting. Continue clear liquid diet as per GI. Continue IVF, analgesics and antiemetics. Blood cultures are negative. She is not on antibiotics. Leukocytosis is improving. There is no evidence of sepsis or Sirs at this time. Discussed with GI and surgery team. Upon discharge patient will follow up with Dr Leydi Patel. Dr Domenica Brown
[2017-02-14] MEDS ORDERED: Potassium Chloride 20 mEq ER Tab PO STA (16:34)
[2017-02-14 17:33] VITALS: O2SAT 99
[2017-02-14] MEDS ORDERED: Potassium Chloride 20 mEq ER Tab PO ONE (19:19)
[2017-02-15 07:02] LABS: ALB/GLOB RATIO 0.9 (1.1-1.8); ALKALINE PHOSPHATASE 191 U/L (38-126); ALT/SGPT 42 U/L (7-56); AST/SGOT 65 U/L (14-36); BILIRUBIN,TOTAL 0.7 mg/dL (0.2-1.3); BLOOD UREA NITROGEN 3 mg/dL (7-21); CALCIUM 8.5 mg/dL (8.4-10.5); CARBON DIOXIDE 27 mmol/L (21-33); CHLORIDE 100 mmol/L (98-107); GFR AFRICAN-AMERICAN > 60; GLUCOSE,RANDOM 100 mg/dL (70-110); MAGNESIUM 1.8 mg/dL (1.7-2.2); PHOSPHOROUS 3.3 mg/dL (2.5-4.5); POTASSIUM 3.1 mmol/L (3.6-5.0); SODIUM 135 mmol/L (132-148); TOTAL PROTEIN 6.7 g/dL (5.8-8.3)
[2017-02-15 07:52] LABS: BASO # 0.09 K/mm3 (0.0-2.0); BASO % 0.7 % (0.0-3.0); EOS # 0.2 (0.0-0.7); EOS % 1.3 % (1.5-5.0); GRAN # 8.89 (1.4-6.5); GRAN % 65.4 % (50.0-68.0); HEMATOCRIT 31.1 % (36.0-48.0); LYMPH # 3.2 (1.2-3.4); LYMPH % 23.3 % (22.0-35.0); MEAN CELL VOLUME 111.5 fl (80.0-105.0); MEAN CORPUSCULAR HEMOGLOBIN 39.4 pg (25.0-35.0); MEAN CORPUSCULAR HGB CONC 35.4 g/dl (31.0-37.0); MEAN PLATELET VOLUME 10.2 fl (7.0-11.0); MONO # 1.3 (0.1-0.6); MONO % 9.3 % (1.0-6.0); RED CELL DISTRIBUTION WIDTH 14.9 % (11.5-14.5); WHITE BLOOD COUNT 13.6 10^3/ul (4.5-11.0)
[2017-02-15 08:43] VITALS: BP 132/90; PULSE 76; TEMP 97.8
[2017-02-15] MEDS ORDERED: Potassium Chloride 20 mEq ER Tab PO SCH (08:45)
--- NOTE | 2017-02-15 08:47 | CP.PCM.PN ---
Subjective - Date & Time of Evaluation Date of Evaluation: 02/15/17 Time of Evaluation: 08:38 - Subjective Subjective: PGY1 Note for Dr. Arora HPI: Patient seen and examined at bedside. Doing well. Complaining of pain that is worse at night. Feels as if it is resolving. tolerating diet. No Nausea, vomiting, Diarrhea. +BM/+Flatus. No chest pain or SOB. Objective - Vital Signs/Intake and Output Vital Signs (last 24 hours): Temp Pulse Resp BP Pulse Ox 98.7 F 80 20 121/82 99 02/14/17 17:33 02/14/17 17:33 02/14/17 17:33 02/14/17 17:33 02/14/17 17:33 Intake and Output: 02/15/17 02/15/17 06:59 18:59 Intake Total 960 480 Output Total 0 Balance 960 480 - Medications Medications: Current Medications Famotidine (Pepcid) 20 mg PO 1000 SASHA Last Admin: 02/14/17 09:01 Dose: 20 mg Potassium Chloride (Potassium Chloride 20 Meq/100 Ml) 20 meq in 100 mls @ 50 mls/hr IVPB Q2H SASHA Stop: 02/15/17 11:29 Ondansetron HCl (Zofran Inj) 4 mg IVP Q6H PRN PRN Reason: Nausea/Vomiting Tramadol HCl (Ultram) 50 mg PO Q6H PRN PRN Reason: Pain, moderate (4-7) Last Admin: 02/14/17 21:45 Dose: 50 mg - Labs Labs: 02/15/17 06:00 02/15/17 06:00 PT 13.3 Seconds (9.9-11.8) H 02/10/17 07:40 INR 1.23 (0.93-1.08) H 02/10/17 07:40 APTT 26.1 Seconds (23.7-30.8) 02/10/17 07:40 - Constitutional Appears: Well, Non-toxic, No Acute Distress - Head Exam Head Exam: ATRAUMATIC, NORMAL INSPECTION, NORMOCEPHALIC - Eye Exam Eye Exam: EOMI Pupil Exam: NORMAL ACCOMODATION - ENT Exam ENT Exam: Mucous Membranes Moist - Respiratory Exam Respiratory Exam: Clear to Ausculation Bilateral, NORMAL BREATHING PATTERN - Cardiovascular Exam Cardiovascular Exam: REGULAR RHYTHM - GI/Abdominal Exam GI & Abdominal Exam: Soft, Normal Bowel Sounds. absent: Distended, Tenderness - Extremities Exam Extremities Exam: absent: Joint Swelling, Tenderness - Neurological Exam Neurological Exam: Alert, Awake, Oriented x3 - Psychiatric Exam Psychiatric exam: Normal Affect, Normal Mood - Skin Skin Exam: Dry, Intact, Normal Color, Warm Assessment and Plan - Assessment and Plan (Free Text) Assessment: 46 yo female w/ pancreatitis s/p lap cholecystectomy POD#8 (on last admission) Plan: * No surgical intervention at this time * Tolerating diet and having BMs * Hypokalemia 3.1 - Replaced with K Mayo 20 x2, KCl 20 PO x1 * Further management per GI Alex Mera DO PGY1
[2017-02-15] MEDS ORDERED: Potassium Chloride 20 mEq ER Tab PO ONE (10:30)
--- NOTE | 2017-02-15 12:46 | CP.PCM.DIS ---
<Terrie Packer - Last Filed: 02/15/17 18:29> Provider - Provider Date of Admission: 02/10/17 13:29 Attending physician: Domenica Brown MD Primary care physician: Leydi Patel MD Consults: Surgery: Ulysses GI: Irma Time Spent in preparation of Discharge (in minutes): 31 Hospital Course - Lab Results Lab Results: Most Recent Lab Values WBC 13.6 10^3/ul (4.5-11.0) H 02/15/17 06:00 RBC 2.79 10^6/uL (3.5-6.1) L 02/15/17 06:00 Hgb 11.0 g/dL (12.0-16.0) L 02/15/17 06:00 Hct 31.1 % (36.0-48.0) L 02/15/17 06:00 MCV 111.5 fl (80.0-105.0) H 02/15/17 06:00 MCH 39.4 pg (25.0-35.0) H 02/15/17 06:00 MCHC 35.4 g/dl (31.0-37.0) 02/15/17 06:00 RDW 14.9 % (11.5-14.5) H 02/15/17 06:00 Plt Count 309 10^3/uL (120.0-450.0) 02/15/17 06:00 MPV 10.2 fl (7.0-11.0) 02/15/17 06:00 Gran % 65.4 % (50.0-68.0) 02/15/17 06:00 Lymph % (Auto) 23.3 % (22.0-35.0) 02/15/17 06:00 [place] % (Auto) 9.3 % (1.0-6.0) H 02/15/17 06:00 Eos % (Auto) 1.3 % (1.5-5.0) L 02/15/17 06:00 Baso % (Auto) 0.7 % (0.0-3.0) 02/15/17 06:00 Gran # 8.89 (1.4-6.5) H 02/15/17 06:00 Lymph # 3.2 (1.2-3.4) 02/15/17 06:00 [place] # 1.3 (0.1-0.6) H 02/15/17 06:00 Eos # 0.2 (0.0-0.7) 02/15/17 06:00 Baso # 0.09 K/mm3 (0.0-2.0) 02/15/17 06:00 Neutrophils % (Manual) 70 % (50.0-70.0) 02/13/17 06:10 Band Neutrophils % 2 % (0-2) 02/13/17 06:10 Lymphocytes % (Manual) 12 % (22.0-35.0) L 02/13/17 06:10 Monocytes % (Manual) 6 % (1.0-6.0) 02/13/17 06:10 Eosinophils % (Manual) 2 % (0.0-3.0) 02/13/17 06:10 Metamyelocytes % 3 % 02/13/17 06:10 Myelocytes % 3 % 02/13/17 06:10 Promyelocytes % 2 % 02/13/17 06:10 Platelet Evaluation Normal (NORMAL) 02/13/17 06:10 Macrocytosis (manual) 2+ 02/13/17 06:10 PT 13.3 Seconds (9.9-11.8) H 02/10/17 07:40 INR 1.23 (0.93-1.08) H 02/10/17 07:40 APTT 26.1 Seconds (23.7-30.8) 02/10/17 07:40 Sodium 135 mmol/L (132-148) 02/15/17 06:00 Potassium 3.1 mmol/L (3.6-5.0) L 02/15/17 06:00 Chloride 100 mmol/L (98-107) 02/15/17 06:00 Carbon Dioxide 27 mmol/L (21-33) 02/15/17 06:00 Anion Gap 11 (10-20) 02/15/17 06:00 BUN 3 mg/dL (7-21) L 02/15/17 06:00 Creatinine 0.4 mg/dL (0.5-1.4) L 02/15/17 06:00 Est GFR ( Amer) > 60 02/15/17 06:00 Est GFR (Non-Af Amer) > 60 02/15/17 06:00 Random Glucose 100 mg/dL (70-110) 02/15/17 06:00 Calcium 8.5 mg/dL (8.4-10.5) 02/15/17 06:00 Phosphorus 3.3 mg/dL (2.5-4.5) 02/15/17 06:00 Magnesium 1.8 mg/dL (1.7-2.2) 02/15/17 06:00 Total Bilirubin 0.7 mg/dL (0.2-1.3) 02/15/17 06:00 AST 65 U/L (14-36) H D 02/15/17 06:00 ALT 42 U/L (7-56) 02/15/17 06:00 Alkaline Phosphatase 191 U/L (38-126) H 02/15/17 06:00 Total Protein 6.7 g/dL (5.8-8.3) 02/15/17 06:00 Albumin 3.1 g/dL (3.0-4.8) 02/15/17 06:00 Globulin 3.6 gm/dL 02/15/17 06:00 Albumin/Globulin Ratio 0.9 (1.1-1.8) L 02/15/17 06:00 Amylase 65 U/L (35-125) 02/10/17 11:15 Lipase 331 U/L (23-300) H 02/14/17 06:30 Procalcitonin 0.27 NG/ML (0.19-0.49) 02/12/17 08:00 Urine Color Yellow (YELLOW) 02/10/17 10:42 Urine Appearance Clear (CLEAR) 02/10/17 10:42 Urine pH 6.0 (4.7-8.0) 02/10/17 10:42 Ur Specific Ar[place] 1.025 (1.005-1.035) 02/10/17 10:42 Urine Protein 30 mg/dL (<30 mg/dL) H 02/10/17 10:42 Urine Glucose (UA) Negative mg/dL (NEGATIVE) 02/10/17 10:42 Urine Ketones >=80 mg/dL (NEGATIVE) 02/10/17 10:42 Urine Blood Moderate (NEGATIVE) H 02/10/17 10:42 Urine Nitrate Negative (NEGATIVE) 02/10/17 10:42 Urine Bilirubin Small (NEGATIVE) H 02/10/17 10:42 Urine Urobilinogen 0.2 E.U./dL (<1 E.U./dL) 02/10/17 10:42 Ur Leukocyte Esterase Negative Jean Carlos/uL (NEGATIVE) 02/10/17 10:42 Urine RBC 0 - 2 /hpf (0-2) 02/10/17 10:42 Urine WBC Negative /hpf (0-6) 02/10/17 10:42 Ur Epithelial Cells 1 - 3 /hpf (0-5) 02/10/17 10:42 Blood Type B POSITIVE 02/10/17 08:00 Antibody Screen Negative 02/10/17 08:00 BBK History Checked Patient has bt 02/10/17 08:00 - Hospital Course Hospital Course: Patient is a 46 year old female with recent lap cholecystectomy and IOP revealed no filling defect presented to [facility] [place] [facility] [place] with nausea, NBNB vomiting, constipation, abdominal pain and distention and found to have pancreatitis of unknown cause. HIDA showed no biliary leak. There is no nausea or vomiting. Patient was made NPO and started on IVF and pain control. Was able to have bowel movement after receiving bowel regimen. Diet was slowly advanced to low fat solids and patient was monitored very closely if she is able to tolerate. During admission patient was found to be hypokalemic, potassium was repleted as needed. Patient was given IVF, analgesics and antiemetics. Blood cultures are negative. Leukocytosis improving off antibiotics. LFTs also improving. There wass no evidence of sepsis or Sirs. GI and surgery were both consulted and following closely. Upon discharge patient will follow up with Dr Leydi Patel and GI. Patient instructed to continue low fat diet. All questions and concerns were addressed. Discharge Exam - Head Exam Head Exam: ATRAUMATIC, NORMAL INSPECTION, NORMOCEPHALIC - Eye Exam Eye Exam: EOMI, Normal appearance Pupil Exam: NORMAL ACCOMODATION, PERRL - ENT Exam ENT Exam: Mucous Membranes Moist - Neck Exam Neck exam: Full Rom - Respiratory Exam Respiratory Exam: Clear to PA & Lateral, NORMAL BREATHING PATTERN, UNREMARKABLE. absent: Rales, Rhonchi, Wheezes - Cardiovascular Exam Cardiovascular Exam: REGULAR RHYTHM, +S1, +S2 - GI/Abdominal Exam GI & Abdominal Exam: Normal Bowel Sounds, Soft. absent: Guarding, Rebound, Rigid, Tenderness Additional comments: surgical incisions c/d/i with dermabond - Extremities Exam Extremities exam: normal inspection - Back Exam Back exam: NORMAL INSPECTION - Neurological Exam Neurological exam: Alert, Normal Gait, Oriented x3 - Psychiatric Exam Psychiatric exam: Normal Affect, Normal Mood - Skin Skin Exam: Normal Color, Warm Discharge Plan - Discharge Medications Prescriptions: Potassium Chloride [K-Dur 20] 20 meq PO DAILY #3 tab - Follow Up Plan Condition: FAIR Disposition: HOME/ ROUTINE Instructions: Low Fat Diet (DC), Acute Abdominal Pain (DC) Additional Instructions: Patient is clear for discharge home. Please continue low fat diet. Pain control , over the counter, Motrin as needed. Patient to follow up with GI and PMD within 1 week. Referrals: Leydi Patel MD [Primary Care Provider] - 1 Week Zoran Solis MD [Medical Doctor] - 1 Week <Domenica Brown - Last Filed: 02/16/17 13:08> Provider - Provider Date of Admission: 02/10/17 13:29 Attending physician: Domenica Brown MD Primary care physician: Leydi Patel MD Time Spent in preparation of Discharge (in minutes): 35 Hospital Course - Lab Results Lab Results: Most Recent Lab Values WBC 13.6 10^3/ul (4.5-11.0) H 02/15/17 06:00 RBC 2.79 10^6/uL (3.5-6.1) L 02/15/17 06:00 Hgb 11.0 g/dL (12.0-16.0) L 02/15/17 06:00 Hct 31.1 % (36.0-48.0) L 02/15/17 06:00 MCV 111.5 fl (80.0-105.0) H 02/15/17 06:00 MCH 39.4 pg (25.0-35.0) H 02/15/17 06:00 MCHC 35.4 g/dl (31.0-37.0) 02/15/17 06:00 RDW 14.9 % (11.5-14.5) H 02/15/17 06:00 Plt Count 309 10^3/uL (120.0-450.0) 02/15/17 06:00 MPV 10.2 fl (7.0-11.0) 02/15/17 06:00 Gran % 65.4 % (50.0-68.0) 02/15/17 06:00 Lymph % (Auto) 23.3 % (22.0-35.0) 02/15/17 06:00 [place] % (Auto) 9.3 % (1.0-6.0) H 02/15/17 06:00 Eos % (Auto) 1.3 % (1.5-5.0) L 02/15/17 06:00 Baso % (Auto) 0.7 % (0.0-3.0) 02/15/17 06:00 Gran # 8.89 (1.4-6.5) H 02/15/17 06:00 Lymph # 3.2 (1.2-3.4) 02/15/17 06:00 [place] # 1.3 (0.1-0.6) H 02/15/17 06:00 Eos # 0.2 (0.0-0.7) 02/15/17 06:00 Baso # 0.09 K/mm3 (0.0-2.0) 02/15/17 06:00 Neutrophils % (Manual) 70 % (50.0-70.0) 02/13/17 06:10 Band Neutrophils % 2 % (0-2) 02/13/17 06:10 Lymphocytes % (Manual) 12 % (22.0-35.0) L 02/13/17 06:10 Monocytes % (Manual) 6 % (1.0-6.0) 02/13/17 06:10 Eosinophils % (Manual) 2 % (0.0-3.0) 02/13/17 06:10 Metamyelocytes % 3 % 02/13/17 06:10 Myelocytes % 3 % 02/13/17 06:10 Promyelocytes % 2 % 02/13/17 06:10 Platelet Evaluation Normal (NORMAL) 02/13/17 06:10 Macrocytosis (manual) 2+ 02/13/17 06:10 PT 13.3 Seconds (9.9-11.8) H 02/10/17 07:40 INR 1.23 (0.93-1.08) H 02/10/17 07:40 APTT 26.1 Seconds (23.7-30.8) 02/10/17 07:40 Sodium 135 mmol/L (132-148) 02/15/17 06:00 Potassium 3.1 mmol/L (3.6-5.0) L 02/15/17 06:00 Chloride 100 mmol/L (98-107) 02/15/17 06:00 Carbon Dioxide 27 mmol/L (21-33) 02/15/17 06:00 Anion Gap 11 (10-20) 02/15/17 06:00 BUN 3 mg/dL (7-21) L 02/15/17 06:00 Creatinine 0.4 mg/dL (0.5-1.4) L 02/15/17 06:00 Est GFR ( Amer) > 60 02/15/17 06:00 Est GFR (Non-Af Amer) > 60 02/15/17 06:00 Random Glucose 100 mg/dL (70-110) 02/15/17 06:00 Calcium 8.5 mg/dL (8.4-10.5) 02/15/17 06:00 Phosphorus 3.3 mg/dL (2.5-4.5) 02/15/17 06:00 Magnesium 1.8 mg/dL (1.7-2.2) 02/15/17 06:00 Total Bilirubin 0.7 mg/dL (0.2-1.3) 02/15/17 06:00 AST 65 U/L (14-36) H D 02/15/17 06:00 ALT 42 U/L (7-56) 02/15/17 06:00 Alkaline Phosphatase 191 U/L (38-126) H 02/15/17 06:00 Total Protein 6.7 g/dL (5.8-8.3) 02/15/17 06:00 Albumin 3.1 g/dL (3.0-4.8) 02/15/17 06:00 Globulin 3.6 gm/dL 02/15/17 06:00 Albumin/Globulin Ratio 0.9 (1.1-1.8) L 02/15/17 06:00 Amylase 65 U/L (35-125) 02/10/17 11:15 Lipase 331 U/L (23-300) H 02/14/17 06:30 Procalcitonin 0.27 NG/ML (0.19-0.49) 02/12/17 08:00 Urine Color Yellow (YELLOW) 02/10/17 10:42 Urine Appearance Clear (CLEAR) 02/10/17 10:42 Urine pH 6.0 (4.7-8.0) 02/10/17 10:42 Ur Specific [place] 1.025 (1.005-1.035) 02/10/17 10:42 Urine Protein 30 mg/dL (<30 mg/dL) H 02/10/17 10:42 Urine Glucose (UA) Negative mg/dL (NEGATIVE) 02/10/17 10:42 Urine Ketones >=80 mg/dL (NEGATIVE) 02/10/17 10:42 Urine Blood Moderate (NEGATIVE) H 02/10/17 10:42 Urine Nitrate Negative (NEGATIVE) 02/10/17 10:42 Urine Bilirubin Small (NEGATIVE) H 02/10/17 10:42 Urine Urobilinogen 0.2 E.U./dL (<1 E.U./dL) 02/10/17 10:42 Ur Leukocyte Esterase Negative Jean Carlos/uL (NEGATIVE) 02/10/17 10:42 Urine RBC 0 - 2 /hpf (0-2) 02/10/17 10:42 Urine WBC Negative /hpf (0-6) 02/10/17 10:42 Ur Epithelial Cells 1 - 3 /hpf (0-5) 02/10/17 10:42 Blood Type B POSITIVE 02/10/17 08:00 Antibody Screen Negative 02/10/17 08:00 BBK History Checked Patient has bt 02/10/17 08:00 Attending/Attestation - Attestation I have personally seen and examined this patient.: Yes I have fully participated in the care of the patient.: Yes I have reviewed all pertinent clinical information, including history, physical exam and plan: Yes Notes (Text): I have seen and examined the patient at bedside. Agree with the note above with the following additions/ exceptions: Briefly this is 46 year old female with recent lap cholecystectomy and IOP revealed no filling defect came with N,V, abdominal pain and distention and found to have pancreatitis of unknown cause. HIDA showed no biliary leak. There is no nausea or vomiting. Diet was advanced to solids. Blood cultures are negative. She is not on antibiotics. Leukocytosis is improving. There is no evidence of sepsis or Sirs at this time. Discussed with GI and surgery team. Patient is cleared for discharge. Advised patient to have a repeat CBC and BMP within 1-2 weeks. Upon discharge patient will follow up with Dr Leydi Patel. Dr Domenica Brown
--- NOTE | 2017-02-16 00:05 | CP.PCM.PN ---
Subjective - Date & Time of Evaluation Date of Evaluation: 02/15/17 Time of Evaluation: 12:30 Objective - Vital Signs/Intake and Output Vital Signs (last 24 hours): Temp Pulse Resp BP Pulse Ox 97.8 F 76 20 132/90 99 02/15/17 06:00 02/15/17 06:00 02/15/17 06:00 02/15/17 06:00 02/15/17 06:00 Intake and Output: 02/15/17 02/16/17 18:59 06:59 Intake Total 480 Output Total 0 Balance 480 - Labs Labs: 02/15/17 06:00 02/15/17 06:00 PT 13.3 Seconds (9.9-11.8) H 02/10/17 07:40 INR 1.23 (0.93-1.08) H 02/10/17 07:40 APTT 26.1 Seconds (23.7-30.8) 02/10/17 07:40 Assessment and Plan - Assessment and Plan (Free Text) Assessment: p
== END 2017-02-15 16:17 | disposition home or self-care (01) | DRG 440 ==
LOC: ED 07:19 → ERH 13:29 → 3RSO 17:14
PROVIDERS: ADMIT Internal Medicine; ATTEND Hospitalist
DX: K85.90 Acute pancreatitis without necrosis or infection, unspecified (principal); K59.00 Constipation, unspecified; E87.6 Hypokalemia; K76.0 Fatty (change of) liver, not elsewhere classified; E83.39 Other disorders of phosphorus metabolism; Z72.0 Tobacco use